=== PATIENT | male | born 1945 | race Caucasian/White ===

== ENCOUNTER 2018-02-27 10:01 | Outpatient (CLI) | payer MEDICARE, SELFPAY ==
[2018-02-28 11:15] LABS: PSA, Screening 0.3 ng/ml (0-6.5)
== END 2018-02-27 10:21 ==
PROVIDERS: PCP Emergency Medicine; Visit Provider Emergency Medicine
DX: N42.9 Disorder of prostate, unspecified (principal); Z12.5 Encounter for screening for malignant neoplasm of prostate
CPT/HCPCS: 36415; 84153

== ENCOUNTER 2019-03-03 11:48 | Outpatient (CLI) | payer MEDICARE, OTHER, SELFPAY ==
[2019-03-03 12:59] LABS: HCT 47.3 % (40.0-50.0); HGB 16.3 g/dL (13.5-17.5); Mean Corp. HGB Concentration 34.5 g/dL (32.0-36.0); Mean Corpuscular Hemoglobin 31.6 pg (27.0-33.0); Mean Corpuscular Volume 91.7 fL (80-95); Mean Platelet Volume 12.5 fL (8.0-11.0); Platelet Count 167 x1000/uL (130-400); RBC 5.16 m/cumm (4.50-6.00); RBC Distribution Width 13.9 % (11.8-14.1); White Blood Cell Count 7.56 k/cumm (4.4-10.8)
[2019-03-03 14:38] LABS: ALT 33 U/L (16-63); AST 25 U/L (15-37); Albumin 3.9 g/dL (3.4-5.0); Alkaline Phosphatase 57 U/L (46-116); Anion Gap 11.1 mmol/L (3-11); BUN 17 mg/dL (7-18); Bilirubin, Total 0.4 mg/dL (0.2-1.0); CO2 23.9 mmol/L (21.0-32.0); CREATININE 1.09 mg/dL (0.70-1.30); Calcium 8.6 mg/dL (8.5-10.1); Chloride 106 mmol/L (98-107); Glucose 95 mg/dL (74-106); Potassium 4.3 mmol/L (3.5-5.1); Sodium 141 mmol/L (136-145); Total Protein 6.8 g/dL (6.4-8.2)
== END 2019-03-03 12:08 ==
PROVIDERS: PCP Emergency Medicine; Visit Provider Family Medicine
DX: I48.91 Unspecified atrial fibrillation (principal)
CPT/HCPCS: 36415; 80053; 85027

== ENCOUNTER 2020-03-05 20:00 | Outpatient (REF) | payer MEDICARE, OTHER, SELFPAY ==
[2020-03-05 21:01] LABS: HCT 46.9 % (40.0-50.0); HGB 16.2 g/dL (13.5-17.5); MCH 31.8 pg (27.0-33.0); MCHC 34.5 % (32.0-36.0); Platelet Count 190 10^3/uL (130-400); RDW 13.4 % (11.8-14.1); RDW-SD 46.2 fL; WBC 8.74 10^3/uL (4.4-10.8)
[2020-03-05 21:40] LABS: ESR 3 mm/hr (1-20)
[2020-03-05 22:12] LABS: ALT 32 U/L (16-63); AST 23 U/L (15-37); Albumin 4.1 g/dL (3.4-5.0); Alkaline Phosphatase 64 U/L (46-116); Anion Gap 7.2 mmol/L (3-11); BUN 16 mg/dL (7-18); Bilirubin, Total 0.5 mg/dL (0.2-1.0); C-Reactive Protein 0.11 mg/dL (0.0-0.3); CO2 25.8 mmol/L (21.0-32.0); CREATININE 1.08 mg/dL (0.70-1.30); Calcium 8.7 mg/dL (8.5-10.1); Chloride 106 mmol/L (98-107); Glucose 93 mg/dL (74-106); Potassium 4.7 mmol/L (3.5-5.1); Sodium 139 mmol/L (136-145); Total Protein 7.1 g/dL (6.4-8.2)
== END 2020-03-05 20:20 ==
LOC: LBN 20:00
PROVIDERS: PCP Emergency Medicine; Visit Provider Emergency Medicine
DX: L29.8 Other pruritus (principal); N42.89 Other specified disorders of prostate
CPT/HCPCS: 80053; 85027; 85652; 86140

== ENCOUNTER 2020-03-08 10:01 | Outpatient (CLI) | payer MEDICARE, OTHER, SELFPAY ==
--- NOTE | 2020-03-08 13:30 | DI.RAD_ITS ---
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 systemic disease. TECHNIQUE: 2D digital imaging was performed. COMPARISON: No exams were available for comparison FINDINGS: Heart size is normal. The mediastinum is not widened. Lungs are clear. No infiltrates nor pleural effusions. IMPRESSION: No acute pulmonary findings. DATA REPOSITORY: RADIATION DOSE DELIVERED:
== END 2020-03-08 10:21 ==
PROVIDERS: PCP Emergency Medicine; Visit Provider Emergency Medicine
DX: L29.8 Other pruritus (principal)
CPT/HCPCS: 71046

== ENCOUNTER → 2020-04-14 12:40 | Outpatient (BNVA) | payer MEDICARE, OTHER, SELFPAY | PROVIDERS: PCP Emergency Medicine; Referring Provider Emergency Medicine; Visit Provider Internal Medicine Cardiovascular Disease | DX: I48.21 Permanent atrial fibrillation | CPT/HCPCS: 99203 ==

== ENCOUNTER → 2020-11-08 09:45 | Outpatient (BNVA) | payer MEDICARE, OTHER, SELFPAY | PROVIDERS: PCP Emergency Medicine; Referring Provider Emergency Medicine; Visit Provider Psychiatry & Neurology Neurology | DX: R25.3 Fasciculation (principal); H53.19 Other subjective visual disturbances | CPT/HCPCS: 99215 ==

== ENCOUNTER 2021-02-02 00:44 | Outpatient (CLI) | payer MEDICARE, OTHER, SELFPAY ==
--- NOTE | 2021-02-02 09:59 | DI.US_ITS ---
APPROVED REPORT EXAM: Comprehensive 2D, Doppler, and color-flow Echocardiogram Patient Location: Out-Patient Certified Orthotist Practice Manager: Natalya Lima RDCS (AE) Indications: Atrial Fibrillation Other Information Study Quality: Good Conclusion Normal left ventricular wall thickness and chamber size. Estimated ejection fraction is 55 to 60%. Wall motion is normal Normal right ventricular size and systolic function Both atria are moderately dilated The aortic valve is trileaflet and mildly sclerotic without stenosis or regurgitation Normal mitral valve with trace regurgitation Normal tricuspid valve with trace regurgitation. Estimated right ventricular systolic pressure is no rmal at 20 mmHg Wall motion Left Ventricle The left ventricle is normal size. The left ventricular systolic function is normal. The left ventric ular ejection fraction is within the normal range. There is normal left ventricular wall thickness. T here is normal LV segmental wall motion. There is no ventricular septal defect visualized. LVEF is 55 -60%. Right Ventricle Right ventricle is borderline dilated. The right ventricular systolic function is normal. The RVSP is 20.5mmHg. Atria Left atrium is moderately dilated. Right atrium is moderately dilated. The interatrial septum is inta ct with no evidence for an atrial septal defect. Aortic Valve The Aortic valve is sclerotic. Aortic valve is trileaflet. There is no aortic valvular stenosis. No a ortic regurgitation is present. Mitral Valve The mitral valve is normal in structure. No evidence of mitral valve stenosis. Trace mitral regurgita tion. Tricuspid Valve The tricuspid valve is normal in structure. There is no tricuspid valve stenosis. Trace tricuspid reg urgitation. Pulmonic Valve The pulmonary valve is normal in structure. There is no pulmonic valvular stenosis. Trace pulmonic re gurgitation. Great Vessels The aortic root is normal in size. The ascending aorta is normal in size. Aortic arch is normal in ca liber. IVC is normal in size and collapses >50% with inspiration. Pericardium There is no pericardial effusion. 2D Dimensions IVSD d PLAX 1.03 cm M: 0.6-1.2 LV Vol A2C d MOD 100.9 mL LVPW d PLAX 1.04 cm M: 0.6 - 1.2 LV Vol A4C d MOD 112.3 mL LVID d PLAX 5.36 cm M: 4.2 - 5.8 LA vol/ BSA A2C s A-L 40.9 mL/m2 LVDs 3.60 cm M: 2.5 - 4.0 LA vol/ BSA A4C s A-L 39.0 mL/m2 RA Area A4C 20.42 cm2 LA Vol/ BSA Biplane s A-L 40.7 mL/m2 RA Vol/ BSA A4C s A-L 29.9 mL/m2 LA Area A4C s MOD 25.29 cm2 Ao Asc Diam d 3.45 cm M: 2.6 - 3.4 LA Area A2C s MOD 25.37 cm2 LV EF Teichholz 59.6 % LV EF A4C MOD 55.0 % LVEF (Story's) 56.05 % M: 52 - 72 LV EF A2C MOD 57.1 % LV Volume 79.75 mL M: 62 - 150 LV EF Biplane MOD 56.0 % LV Volume Index 38.34 mL/m2 M: 34 - 74 SV 60.43 mL LV Vol Biplane MOD 107.8 mL SV Index 28.96 mL/m2 FS 31.95 % M-Mode TAPSE 1.90 cm (M/F) >1.7 LV Diastology MV E' medial 0.117 (>0.07 m/s) E/A Ratio 2.5 LV E/e MED 7.55 (<14) MV E Vmax 0.89 (0.4-1.3 m/s) MV E' lateral 0.122 (>0.1 m/s) MV A Vmax 0.35 (0.4-1.3 m/s) LV E/e LAT 7.25 (<14) MV E/A Ratio 2.34 MV E/E' medial 7.56 MV E/E' lateral 7.25 Aortic Valve LVOT Vmax 0.81 m/s LVOT Mean Az. 0.51 m/s LVOT Peak Grad 2.6 mmHg LVOT Mean Grad 1.3 mmHg LVOT VTI 0.149 m AoV Vmax 1.10 m/s Velocity Ratio 0.73 AoV Mean Az. 0.80 m/s AoV Peak Grad 4.9 mmHg AoV Mean Grad 2.8 mmHg AoV VTI 0.199 m Mitral Valve MV DT 180 (160-240 msec) MV PHT 52 msec MV Area PHT 4.21 cm2 MV VTI 0.787 m MV VTI Annulus 1.326 m Pulmonary Valve PV Vmax 1.16 (0.5-1.5 m/s) RVOT Peak Gr. 2.45 mmHg PV Peak Grad 5.4 mmHg RVOT Mean Gr. 1.15 mmHg PV Mean Grad 3.5 mmHg RVOT VTI 0.140 m PV VTI 0.179 m RVOT Vmax 0.78 m/s Tricuspid Valve TR Peak Grad 17.5 mmHg TR Vmax 2.09 m/s RA Pressure 3.00 mmHg RVSP (TR) 20.5 mmHg
== END 2021-02-02 01:04 ==
PROVIDERS: PCP Emergency Medicine; Visit Provider Internal Medicine Cardiovascular Disease
DX: I48.91 Unspecified atrial fibrillation (principal); I35.8 Other nonrheumatic aortic valve disorders
CPT/HCPCS: 93306

== ENCOUNTER → 2021-04-01 09:15 | Outpatient (BNVA) | payer MEDICARE, SELFPAY | PROVIDERS: PCP Emergency Medicine; Referring Provider Emergency Medicine; Visit Provider Internal Medicine Cardiovascular Disease | DX: I48.21 Permanent atrial fibrillation (principal) | CPT/HCPCS: 99214; 99213 ==

== ENCOUNTER 2021-07-15 00:15 | Outpatient (CLI) | payer MEDICARE, SELFPAY ==
--- NOTE | 2021-07-15 07:26 | DI.RAD_ITS ---
Exam(s) XR ANKLE RT COMPLETE EXAM: XR ANKLE RT COMPLETE CLINICAL HISTORY: ankle pain,m25.579. TECHNIQUE: 2D digital imaging was performed. Three views. COMPARISON: No exams were available for comparison FINDINGS: BONES: No acute fracture is present. No bony destructive lesion is seen. Prominent spurring at the A chilles insertion on the calcaneus. Mild spurring from the medial malleolus. JOINTS: The ankle mortise is normally aligned. Joint spaces well maintained. SOFT TISSUE: Normal. IMPRESSION: Large enthesophyte at the Achilles insertion on the calcaneus. DATA REPOSITORY: RADIATION DOSE DELIVERED:
== END 2021-07-15 00:35 ==
PROVIDERS: PCP Nurse Practitioner Family; Visit Provider Emergency Medicine
DX: M25.571 Pain in right ankle and joints of right foot; M76.61 Achilles tendinitis, right leg
CPT/HCPCS: 73610

== ENCOUNTER → 2021-08-01 09:23 | Outpatient (BNVA) | payer MEDICARE, SELFPAY | PROVIDERS: PCP Nurse Practitioner Family; Referring Provider Nurse Practitioner Family | DX: M25.571 Pain in right ankle and joints of right foot (principal) | CPT/HCPCS: 20605; 99214; J1030 ==

== ENCOUNTER → 2021-10-14 23:30 | Outpatient (CLI) | payer MEDICARE, SELFPAY ==
--- NOTE | 2021-10-14 15:15 | DI.RAD_ITS ---
Exam(s) XR ANKLE RT COMPLETE EXAM: XR ANKLE RT COMPLETE CLINICAL HISTORY: evaluate fx, rt ankle pain, M25.571. TECHNIQUE: 2D digital imaging was performed. Three views. COMPARISON: CR XR ANKLE RT COMPLETE from 07/15/2021 FINDINGS: BONES: No acute fracture is present. No bony destructive lesion is seen. A prominent spurs again noted at the Achilles insertion on the calcaneus. JOINTS: The ankle mortise is normally aligned. There are mild degenerative changes of the medial tib ial talar joint. SOFT TISSUE: There is swelling around the malleoli. IMPRESSION: Prominent heel spur. No evidence of fracture. DATA REPOSITORY: RADIATION DOSE DELIVERED:
== END ==
PROVIDERS: PCP Nurse Practitioner Family; Visit Provider Nurse Practitioner Family
DX: M25.571 Pain in right ankle and joints of right foot (principal); M77.31 Calcaneal spur, right foot
CPT/HCPCS: 73610

== ENCOUNTER 2021-10-17 04:32 | Outpatient (CLI) | payer MEDICARE, SELFPAY ==
[2021-10-17 14:04] LABS: INR 1.2 (0.9-1.1); Prothrombin Time 12.1 sec (9.3-11.0)
== END 2021-10-17 04:33 | disposition home or self-care (01) ==
LOC: LBO 04:32
PROVIDERS: PCP Nurse Practitioner Family; Visit Provider Nurse Practitioner
DX: I51.3 Intracardiac thrombosis, not elsewhere classified (principal); Z79.01 Long term (current) use of anticoagulants
CPT/HCPCS: 36415; 85610

== ENCOUNTER 2021-10-20 03:01 | Outpatient (CLI) | payer MEDICARE, SELFPAY ==
[2021-10-20 09:36] LABS: INR 2.1 (0.9-1.1); Prothrombin Time 20.6 sec (9.3-11.0)
== END 2021-10-20 03:02 | disposition home or self-care (01) ==
PROVIDERS: PCP Nurse Practitioner Family; Visit Provider Nurse Practitioner
DX: I48.21 Permanent atrial fibrillation (principal); I51.3 Intracardiac thrombosis, not elsewhere classified; Z79.01 Long term (current) use of anticoagulants
CPT/HCPCS: 36415; 85610

== ENCOUNTER 2021-11-04 09:17 | Outpatient (CLI) | payer MEDICARE, SELFPAY ==
[2021-11-04 09:34] LABS: Prothrombin Time 37.3 sec (9.3-11.0)
== END 2021-11-04 09:18 | disposition home or self-care (01) ==
LOC: LBO 09:18
PROVIDERS: PCP Nurse Practitioner Family; Visit Provider Nurse Practitioner
DX: I48.21 Permanent atrial fibrillation (principal); I51.3 Intracardiac thrombosis, not elsewhere classified
CPT/HCPCS: 36415; 85610

== ENCOUNTER → 2021-11-10 07:59 | Outpatient (BNVA) | payer MEDICARE, SELFPAY | PROVIDERS: PCP Nurse Practitioner Family; Referring Provider Nurse Practitioner Family; Visit Provider Student in an Organized Health Care Education/Training Program | DX: M19.071 Primary osteoarthritis, right ankle and foot (principal) | CPT/HCPCS: 99214 ==

== ENCOUNTER 2021-11-11 01:50 | Outpatient (CLI) | payer MEDICARE, SELFPAY ==
--- OUTSIDE RECORDS SUMMARY | 2021-11-11 01:52 | XMS_ITS | Encounter Summary ---
:1945 Author Organization [facility] [place] [address] Care Team Providers Name Role Phone SoitoJb Primary Care Provider Encounter Details Date Type Department Care Team Description 04/05/2021 Notes Only Card[place] [facility] [place] [phone] Social History Tobacco Use Types Packs/Day Years Used Date Never Assessed Sex Assigned at Date Recorded Not on file documented as of this encounter Progress Notes Drew Pearce RN - 04/05/2021 12:17 PM EST Mr. Polanco is referred by Susan Desir MD for consideration of left atrial appendage closure options; please refer to notes in media section for detailed history and assessment. In brief, the patient is very active and does a lot of activities that involve risk for bleeding, bruising, and injuryso would like to pursue non pharmacological options for stroke prevention. His history includes the following: Permanent atrial fibrillation; Fasciculations; Neuritis and Chronic Pruritis. [id number] VASc: 1 (Age) HAS-BLED: 1 (Age) Anticoagulation/antiplatelet: None currently Plan: Schedule clinic with diagnostics. documented in this encounter Plan of Treatment Upcoming Encounters Date Type Specialty Care Team Description 11/11/2021 Anti-Coag Telephone Primary Care Visit 12/20/2021 Hospital Encounter Surgery Amna Anthony MD [facility] [address] 12/20/2021 Appointment Cardiology Neha Pat APRN [facility] [place] [address] 12/20/2021 Surgery Surgery Amna Anthony MD ECHOCARDIOGRAM ([facility] [place] [address] 12/20/2021 Office Visit Cardiology Lance Damon MD [facility] [place] [address] Scheduled Procedures Name Priority Associated Diagnoses Date/Time TRANSESOPHAGEAL ECHOCARDIOGRAM Thrombus 0 12/20/2021 12:30 PM EDT ([facility] 2.) documented as of this encounter Visit Diagnoses Not on filedocumented in this encounter Care Teams Inclusion Internship Relationship Specialty Start Date End Date Jb Mcneill DO PCP - General Family Medicine 05/13/19 10/04/[address] [place] [address] documented as of this encounter
--- OUTSIDE RECORDS SUMMARY | 2021-11-11 01:52 | XMS_ITS | Encounter Summary ---
:1945 Author Organization [facility] [place] [address] Care Team Providers Name Role Phone None Primary Care Provider Unavailable Reason for Referral Diagnostic Test (Routine) - Closed Specialty Diagnoses / Procedures Referred By Contact Refer red To Contact Cardiology Diagnoses Atrial fibrillation, unspecified type Alexei Damon MD [facility] Non-Inv Card Lab Procedures Transesophageal Echocardiogram (FREDY) [facility] [place] [address] [address] [place] [phone] Phone: Fax: Referral ID Status Reason Start Date Expiration Date Visits V isits Requested Authorized [id number] Closed Specialty 09/14/2021 09/14/2022 1 1 Service Requested Reason for Visit Auth/Cert Specialty Diagnoses / Procedures Referred By Contact Refer red To Contact Diagnoses Chronic atrial fibrillation, unspecified Thrombus [I82.90] Chronic a-fib [I48.20] Watchman w/u ? thrombus Ronak Benson MD [facility] Procedures PRG FREDY REAL TIME IMG 2D W PRB IMG ACQUIS I&R TRANSESOPHAGEAL ECHOCARDIOGRAM (WRVU 2.55) [facility] [address] Referral ID Status Reason Start Date Expiration Date Visits Requ ested Visits Authorized [id number] 1 1 Encounter Details Date Type Department Care Team Description 10/12/2021 Hospital Encounter Same Day Program at Esa Benson rtic valve stenosis, etiology of cardiac valve disease unspecified; Susan Simons MD Atrial fibrillation, unspecified type [facility] [address] CARDIOLOGY DEPT [place], [place] [id number] [phone] Social History Tobacco Use Types Packs/Day Years Used Date Never Smoker Smokeless Tobacco: Current User Chew Alcohol Use Standard Drinks/Week Comments Yes 0 (1 standard drink = 0.6 oz pure alcoho l) A few times per week Alcohol Habits Answer Date Recorded How often do you have a drink containing Not asked alcohol? How many drinks containing alcohol do you have Not asked on a typical day when you are drinking? How often do you have six or more drinks on one Not asked occasion? Comment: A few times per week 05/17/2021 Sex Assigned at Date Recorded Not on file documented as of this encounter Last Filed Vital Signs Vital Sign Reading Time Taken Comments Blood Pressure 126/96 10/12/2021 12:15 PM EDT Pulse 73 10/12/2021 12:15 PM EDT Temperature 36.6 ??C (97.9 ??F) 10/12/2021 12:15 PM EDT Respiratory Rate 16 10/12/2021 12:15 PM EDT Oxygen Saturation 96% 10/12/2021 12:15 PM EDT Inhaled Oxygen Concentration - - Weight 93 kg (205 lb) 10/12/2021 10:01 AM EDT Height 172.7 cm (5' 8) 10/12/2021 10:01 AM EDT Body Mass Index 31.17 10/12/2021 10:01 AM EDT documented in this encounter Discharge Instructions Discharge InstructionsHanh Pena RN - 10/12/2021 11:21 AM EDT SAME DAY PROGRAM POST-OPERATIVE INSTRUCTIONS POST TRANSESOPHAGEL ECHOCARDIOGRAPHY A sore throat is normal after the procedure. It usually lasts several hours. Cold liquids and soothing lozenges will help ease the discomfort. You may resume your normal diet in two hours. No driving for twenty-four hours. No heavy lifting, no climbing or activities that require balance for twenty-four hours. Please call you doctor if you develop: Difficulty swallowing or breathing Severe chest or abdominal pain Vomiting of blood If you are having problems or have additional concerns or questions please call: Cardiology Clinic 8am - 5pm Same Day Program 6am- 6:30pm Emergency Room after 6:30pm documented in this encounter Medications at Time of Discharge Medication Sig Dispensed Refills Start Date End Date metoprolol succinate XL Daily. 0 (Toprol-XL) 50 mg Tablet Sustained Release 24 hr metoprolol succinate XL Take 25 mg by mouth 0 (Toprol-XL) 25 mg Tablet daily. Sustained Release 24 hr apixaban (Eliquis) 5 mg Take 1 tablet by 60 tablet 4 202110/13/2021 Tablet mouth 2 times daily. documented as of this encounter Progress Notes Hanh Pena RN - 10/12/2021 12:31 PM EDT Patient alert and oriented, vital signs stable. Reviewed discharge instructions; patient and spouse,verbalized understanding. Copy of instruction sheet with contact numbers for questions/concerns Provided. Pain assessment documented. Patient escorted out of department via wheelchair. Hanh Pena RN - 10/12/2021 11:30 AM EDT Pt a&ox3, denies complaints. Gag reflex present. Tolerating po fluids with no issues. documented in this encounter H&P Notes Hussain Stoll MD - 10/12/2021 10:30 AM EDT Images from the original note were not included. Pre-Transesophageal Echo Assessment Please see Neha Pat's note dated 05/24/21 for full details regarding reason for referral for FREDY. Briefly, this is a 76 y.o. YO male with history notable for atrial fibrillation now on eliquis, recent ARJUN thrombus seen on CT 05/24/21, tobacco abuse, chronic pruritis referred for FREDY to follow up on ARJUN thrombus post-anticoagulation and sizing of ARJUN. The patient denies a history of difficulty swallowing or esophageal pathology. The patient denies any loose teeth. Exam reveals clear lungs, flat JVP at 90 degrees, regular rhythm without gallop or murmur, 2+ radialpulses bilaterally, and no LE edema. Mallampati: III Allergies reviewed. Previous echocardiogram dated 02/02/21 reviewed. [facility] echo report. The patient is appropriate for FREDY. [ ] Cardioversion [ ] Age <25 years [ ] Oxygen requirement >2L [ ] Recent CVA [ ] Morbid obesity [ ] Obstructive sleep apnea [ ] Hemodynamic instability [ ] Chronic narcotics/alcoholism [ ] ASA IV or greater FREDY will be done with anesthesia in [place]. Please see forthcoming anesthesia note. The patient's questions regarding the procedure were answered. Written, informed consent was obtained after a thorough discussion of the risks and benefits of FREDY as detailed in the printed consent form. Hussain Stoll Technical Services Representative, [id number] documented in this encounter Miscellaneous Notes Op Note - Ronak Benson MD - 10/12/2021 10:46 AM EDT [facility] Operative Note Patient Name: Sera Soliz : [id number] MR#: [id number] Case Date: 10/12/2021 Surgeon: Surgeon(s) and Role: * Ronak Benson MD - Primary * Hussain Stoll MD - Fellow Preoperative diagnosis: Thrombus [I82.90] Chronic a-fib [I48.20] Watchman w/u ? thrombus Postoperative diagnosis: Watchman w/u ? thrombus Procedure(s) (LRB): TRANSESOPHAGEAL ECHOCARDIOGRAM (WRVU 2.55) (N/A) Anesthesia: MAC Estimated Blood Loss: * No values recorded between 10/12/2021 10:46 AM and 10/12/2021 11:01 AM * Specimens removed during surgery: None Drains: * No LDAs found * Disposition: awakened from anesthesia, extubated and taken to the recovery room in a stable condition, having suffered no apparent untoward event. Condition: doing well without problems (Please see the Surgical Encounter Summary for any Implant and Specimen details pertinent to this patient.) HPI/Surgical Indications: 76 year old man referred for FREDY for evaluation of ARJUN thrombus. Procedure Description: FREDY probe passed autraumatically by Dr. Stoll under my direct supervision. There is a thrombus in the ARJUN. FREDY otherwise normal. Please see report for full details. Surgical Infection Prevention Bundle Used? N/A Attestation: Case Date: 10/12/2021 I was present and I participated during the entire procedure (does not need to include opening and closing). Ronak Benson MD 10/12/2021 documented in this encounter Plan of Treatment Upcoming Encounters Date Type Specialty Care Team Description 11/11/2021 Anti-Coag Telephone Primary Care Visit 12/20/2021 Hospital Encounter Surgery Amna Atnhony MD [facility] [place] [address] 12/20/2021 Appointment Cardiology Neha Pat APRN [facility] [place] [address] 12/20/2021 Surgery Surgery Amna Anthony MD ECHOCARDIOGRAM ([facility] 2.55) [facility] [place] [address] 12/20/2021 Office Visit Cardiology Alexei Damon MD [facility] [place] [address] Scheduled Procedures Name Priority Associated Diagnoses Date/Time TRANSESOPHAGEAL ECHOCARDIOGRAM Thrombus 0 12/20/2021 12:30 PM EDT ([facility] 2.55) documented as of this encounter Procedures Procedure Name Priority Date/Time Associated Comments Diagnosis FREDY W LMTD SPECTRAL Routine 10/12/2021 1:16 Atrial Resul ts for this DOPPLER COLOR DOPPLER PM EDT fibrillation, proce dure are in unspecified type the results section. TRANSESOPHAGEAL 10/12/2021 10:36 Thrombus ECHOCARDIOGRAM (WRVU AM EDT Chronic a-fib 2.55) HEMOGRAM Routine 10/12/2021 9:29 Aortic valve Results for this AM EDT stenosis, etiology procedure are in of cardiac valve the results disease unspecified section. DIFFERENTIAL, AUTOMATED Routine 10/12/2021 9:29 Aortic valve R esults for this AM EDT stenosis, etiology procedure are in of cardiac valve the results disease unspecified section. HC CBC,PLT & AUTO DIFF Routine 10/12/2021 9:29 Aortic valve AM EDT stenosis, etiology of cardiac valve disease unspecified COMPREHENSIVE METABOLIC Routine 10/12/2021 9:29 Aortic valve R esults for this PANEL (NON-FASTING) AM EDT stenosis, etiology pr ocedure are in of cardiac valve the results disease unspecified section. documented in this encounter Results FREDY W LMTD SPECTRAL DOPPLER COLOR DOPPLER (10/12/2021 1:16 PM EDT) P athologist Signature EF 65 HEARTLAB SYSTEM Specimen (Source) Anatomical Collection Method Collection Time Re ceived Time Location / / Volume Laterality 10/12/2021 10:38 AM EDT Narrative HEARTLAB SYSTEM - 10/12/2021 1:25 PM EDT ? Transe sophageal Echocardiogram Report Name: SERA SOLIZ ? Study Date: 10/12/2021 10:38 AMBP: 154/104 mmHg ? Patient Location: OR^ORMN^A HR: 94 : 1945 ? Height: 68 in ? Account: [id number] Age: 76 yrs ? Weight: 205 lb Gender: Male ?BSA: 2.1 m2 Ordering Physician: ALEXEI DAMON Referring Physician: ALEXEI DAMON Performed By: Hussain Stoll MD History: Atrial fibrillation Interpreting Fellow: Hussain Stoll. Exam Location: [facility]. Interpretation Summary 1. Directed FREDY to assess for thrombus i n the left atrium or left atrial appendage. 2. There is an independently mobile mass present in the left atrial appendage measuring roughly 0.92 cm x 0.66 cm that is consistent with a likely thrombus. There is no evidence of thrombus in the left atrium. 3. The left ventricle is normal in size and function. The left ventricular ejection fraction is estimated to be 65% . There are no regional wall motion abnormalities. 4. The right ventricle is normal in size and function. The pulmonary artery systolic pressure could not be estimated . 5. There are no hemodynamically signific ant valvular abnormalities. 6. Compared to the prior echocardiograph ic report from [facility] on 04/01/21, a left atrial appendage thrombus is able to be visualized on this study. Procedure A complete FREDY study was performed under deep sedation with anesthesia provided by the anesthesiology service. After suitab le sedation, the probe was passed without difficulty. Standard views were obtained in the transgastric, mid esophageal, and basal planes using a multiplane transeso phageal echo probe. Additional evaluation with color flow Doppler and limited spec tral Doppler was performed. Probe passed by: Hussain Stoll. 3D image acquisitio n, rendering with interpretation and reporting, not requiring post-processing on an independent workstation. There were no complications during the procedure. T he study images were of technically good quality. Informed consent from the patie nt in writing. The risks and benefits of the procedure were explained in detail t o the patient, including but not limited to the risk of aspiration, dysphagia, an d esophageal perforation. Patient agreed to proceed. Left Ventricle Left ventricle is of normal size. Wall t hickness is normal. Left ventricular size and systolic function is normal. Left ve ntricular ejection fraction is estimated visually at 65%. There are no segmental wall motion abnormalities. Right Ventricle The right ventricle is of normal size. R ight ventricular systolic function is normal. Left Atrium A mass is present in the left atrial jared endage compatible with a thrombus. No abnormality of the interatrial septum is identified. There is no evidence for a patent foramen ovale. Pulsed wave Dopple r of the left atrial appendage demonstrates normal emptying velocity. Right Atrium No evidence of a mass or thrombus. Aortic Valve The aortic valve is structurally and fun ctionally normal. The aortic valve is tricuspid. There is no aortic stenosis. There is no aortic regurgitation. Mitral Valve The mitral valve is structurally and fun ctionally normal. There is no mitral stenosis. There is mild mitral regurgita tion. Tricuspid Valve The tricuspid valve is structurally and functionally normal. There is mild tricuspid regurgitation. Pulmonic Valve The pulmonic valve appears to be structu rally and functionally normal. There is trace pulmonic valve regurgitation. Great Arteries The aortic root is of normal size. No ab normalities are identified. Ascending Plaque grade 2: (extensive intimal thick ening). Aortic Arch Plaque grade 2: (extensive intimal thickening). Descendi ng Thoracic Aorta Plaque grade 2: (extensive intimal thickening). Pericardium/Pleural The pericardium appears normal. There is no pericardial effusion. ? 2D Measurements ?A o root diam: 3.1 cm ?A o root diam index: 1.5 ? Left atrial appendage thrombus ?Left atrial appendage thrombus I ?WMSI = 1.00 ? % Normal = 1 00 ?Segments ??Size X - Cannot ?2 - ?4 - ?1-2 ? small Interpret ?1 - Normal ?? Hypokinetic 3 - Akinetic Dyskinetic ?? 3-5 ? moderate 5 - ? 6-14 ?large Aneurysmal ?15-16 ?? diffuse Procedure Note Ronak Benson MD - 10/12/2021Format ting of this note might be different from the original. Transesophageal Echocardiogram Report Name: HEYDISERA Study Date: 10/13/19 10:38 AMBP: 154/104 mmHg Patient Location: OR^OR N^A HR: 94 : 1945 Height: 68 in Account: [id number] Age: 76 yrs Weight: 205 lb Gender: Male BSA: 2.1 m2 Ordering Physician: ALEXEI DAMON Referring Physician: ALEXEI DAMON Performed By: Hussain Stoll MD History: Atrial fibrillation Interpreting Fellow: Hussain Stoll. Exam Location: [facility]. Interpretation Summary 1. Directed FREDY to assess for thrombus i n the left atrium or left atrial appendage. 2. There is an independently mobile mass present in the left atrial appendage measuring roughly 0.92 cm x 0.66 cm that is consistent with a likely thrombus. There is no evidence of thrombus in the left atrium. 3. The left ventricle is normal in size and function. The left ventricular ejection fraction is estimated to be 65% . There are no regional wall motion abnormalities. 4. The right ventricle is normal in size and function. The pulmonary artery systolic pressure could not be estimated . 5. There are no hemodynamically signific ant valvular abnormalities. 6. Compared to the prior echocardiograph ic report from [facility] on 04/01/21, a left atrial appendage thrombus is able to be visualized on this study. Procedure A complete FREDY study was performed under deep sedation with anesthesia provided by the anesthesiology service. After suitab le sedation, the probe was passed without difficulty. Standard views were obtained in the transgastric, mid esophageal, and basal planes using a multiplane transeso phageal echo probe. Additional evaluation with color flow Doppler and limited spec tral Doppler was performed. Probe passed by: Hussain Stoll. 3D image acquisitio n, rendering with interpretation and reporting, not requiring post-processing on an independent workstation. There were no complications during the procedure. T he study images were of technically good quality. Informed consent from the patie nt in writing. The risks and benefits of the procedure were explained in detail t o the patient, including but not limited to the risk of aspiration, dysphagia, an d esophageal perforation. Patient agreed to proceed. Left Ventricle Left ventricle is of normal size. Wall t hickness is normal. Left ventricular size and systolic function is normal. Left ve ntricular ejection fraction is estimated visually at 65%. There are no segmental wall motion abnormalities. Right Ventricle The right ventricle is of normal size. R ight ventricular systolic function is normal. Left Atrium A mass is present in the left atrial jared endage compatible with a thrombus. No abnormality of the interatrial septum is identified. There is no evidence for a patent foramen ovale. Pulsed wave Dopple r of the left atrial appendage demonstrates normal emptying velocity. Right Atrium No evidence of a mass or thrombus. Aortic Valve The aortic valve is structurally and fun ctionally normal. The aortic valve is tricuspid. There is no aortic stenosis. There is no aortic regurgitation. Mitral Valve The mitral valve is structurally and fun ctionally normal. There is no mitral stenosis. There is mild mitral regurgita tion. Tricuspid Valve The tricuspid valve is structurally and functionally normal. There is mild tricuspid regurgitation. Pulmonic Valve The pulmonic valve appears to be structu rally and functionally normal. There is trace pulmonic valve regurgitation. Great Arteries The aortic root is of normal size. No ab normalities are identified. Ascending Plaque grade 2: (extensive intimal thick ening). Aortic Arch Plaque grade 2: (extensive intimal thickening). Descendi ng Thoracic Aorta Plaque grade 2: (extensive intimal thickening). Pericardium/Pleural The pericardium appears normal. There is no pericardial effusion. 2D Measurements Ao root diam: 3.1 cm Ao root diam index: 1.5 Left atrial appendage thrombus Left atr ial appendage thrombus I WMSI = 1.00 % Normal = 100 Segments Size X - Cannot 2 - 4 - 1-2 small Interpret 1 - Normal Hypokinetic 3 - Shon netic Dyskinetic 3-5 moderate 5 - 6-14 large Aneurysmal 15-16 diffuse Alexei Damon MD ECHO ORDERABLES Performing Organization Address City/State/ZIP Code Phon e Number HEARTLAB SYSTEM (ABNORMAL) Differential, Automated (10/12/2021 9:29 AM EDT) [facility] Method Time Signature Neutrophils % 72.5 % [facility] Neutr Abs (ANC) 7.19 (H) 1.70 - [facility] 6.10 [facility] x10(3[facility] LABOR[facility]ORY Lymphocytes % 14.9 % [facility] Lymphocytes Abs 1.5 0.9 - 3.2 [facility] x10(3)/[facility] LABORATORY Monocytes % 9.4 % [facility] Monocyte Abs 0.9 0.3 - 0.9 [facility] x10(3)/[facility] LABORATORY Eosinophils % 2.1 % [facility] Eosinophils Abs 0.2 0.0 - 0.4 [facility] x10(3)/[facility] LABORATORY Basophils % 0.6 % [facility] Basophils Abs 0.1 0.0 - 0.1 [facility] x10(3)/[facility] LABORATORY Immature Gran % 0.50 % [facility] Comment: Immature granulocytes(IG's)percentage an d absolute count will include metamyelocytes, myelocytes, and promyelo cytes. Blood smears from CBCs yielding IG's will be scanned manually for concor dance. If this scan disagrees with the automated IG or if promyelocytes are not ed, a manual differential will be performed. Rubia Gran Abs 0.05 (H) 0.00 - 0.04 x10(3)/[facility] LABORATORY Specimen Anatomical Collection Method Collection Time Receive d Time (Source) Location / / Volume Laterality Blood 10/12/2021 9:29 AM 9:49 EDT AM EDT Resulting Agency Comment Spec In Lab Neha Yuri Pat APRN HEMATOLOGY ORDERABLES Performing Organization Address City/State/[place] [address] (ABNORMAL) Hemogram (10/12/2021 9:29 AM EDT) Analysis Performed At Patho logist Time Signature WBC 9.9 (H) 4.0 - 9.5 [facility] x10(3)/[facility] LABORATORY RBC 5.26 4.58 - [facility] 5.54 [facility] x10(6)/[facility] LABORATORY Hemoglobin 16.3 13.7 - [facility] 16.5 g/dL [facility] Hematocrit 47.7 40.5 - [facility] 48.5 % [facility] MCV 90.7 82.9 - [facility] 93.1 fL [facility] MCH 31.0 27.5 - SUSAN MONTIEL 32.1 pg [facility] MCHC 34.2 32.0 - [facility] 35.[facility] g/dL [facility] Platelets 180 145 - 357 [facility] x10(3)/[facility] LABORATORY RDWSD 45.1 (H) 36.0 - [facility] 45.0 [facility] LABORATORY RDWCV 13.3 11.4 - [facility] 13.8 % [facility]ORY MPV 12.1 7.6 - 12.9 [facility] LABORATORY nRBC % Auto 0.0 % [facility] nRBC Abs Auto 0.000 0.000 - [facility] 0.000 [facility] x10(3[facility] LABORATORY Specimen Anatomical Collection Method Collection Time Receive d Time (Source) Location / / Volume Laterality Blood 10/12/2021 9:29 AM 9:49 EDT AM EDT Resulting Agency Comment Spec In Lab Neha Pat APRN HEMATOLOGY ORDERABLES Performing Organization Address City/State/[place] [address] Comprehensive metabolic panel (non-fasting) (10/12/2021 9:29 AM EDT) P athologist Signature Glucose Lvl 100 65 - 199 [facility] mg/dL [facility] Comment: Diabetes: >=200 mg/dL plus symp toms BUN 14 10 - 20 mg/dL [facility] Creatinine 1.03 0.80 - 1.50 mg/dL [facility] Sodium 137 135 - 145 mmol/L [facility] Potassium 4.4 3.5 - 5.0 mmol/L [facility] Comment: Please note: ??Patients with WBC >100,00 0 may have falsely elevated Potassium levels. ??For accurate Potassium quantif ication in these patients send serum separator tube (gold top) for subsequent determinations. ??Contact the Clinical Chemistry Laboratory if there are any qu estions. Chloride 105 98 - 107 mmol/L [facility] CO2 25 22 - 31 mmol/L [facility] Anion Gap 7 5 - 15 mmol/L [facility] Calcium 9.0 8.5 - 10.5 mg/dL [facility] Total Protein 6.8 6.1 - 8.0 g/dL [facility] Albumin 4.2 3.2 - 5.2 g/dL [facility] AST 21 0 - 39 unit/L [facility] ALT 17 0 - 55 unit/L [facility] Alk Phos 58 40 - 130 unit/L [facility] Total Bilirubin 0.7 0.2 - 1.3 mg/dL [facility] Estimated GFR 76 >=60 mL/min/1.73 m?? [facility] Comment: This patient's estimated GFR was calcula jody using the 2020 CKD-EPI equation. The estimated GFR can vary from the mary ured GFR by up to 30% in the absence of rapidly changing kidney function. Assess ment of the estimated GFR is not appropriate when creatinine concentratio ns are rapidly changing. For clinical situations in which a more precise estim ate of GFR is necessary, consider alternative methods of GFR estimation henry ch as a 24-hour urine creatinine clearance. Assignment of CKD stage 1-5 for patients with an eGFR near the transition point between stages may be based on clinical assessment of muscle mass and symptoms in addition to eGFR. Specimen Anatomical Collection Method Collection Time Receive d Time (Source) Location / / Volume Laterality Blood 10/12/2021 9:29 AM 2 9:50 EDT AM EDT Resulting Agency Comment Spec In Lab Neha Pat APRN CHEMISTRY ORDERABLES Performing Organization Address City/State/[place] [address] documented in this encounter Visit Diagnoses Diagnosis Aortic valve stenosis, etiology of cardi ac valve disease unspecified Atrial fibrillation, unspecified type Thrombus Embolism and thrombosis of unspecified s ite documented in this encounter Administered Medications Inactive Administered Medications - up to 3 most recent administrations Medication Order MAR Action Action Date Dose Rate Site iohexoL (Omnipaque) (350 mg/mL) solution 0-200 mL 0-200 mL, Intravenous, ONCE PRN, 1 dose, Starting on Sun10/12/21 at 0959, Until Sun10/12/21 at 1437, Per Protocol, Warning Vesicant/Irr itant Medication , Radiology Contrast, Routine lactated ringers infusion New Bag 10/12/2021 10:24 AM EDT 1,000 mLs 100 mL/hr 1,000 mL, at 100 mL/hr, Intravenous, CONTINUOUS, Starting on Sun10/12/21 at 1015, Until Sun10/12/21 at 1230, Day of Surgery (Day of Procedure) lidocaine (Xylocaine) 1% (10 mg/mL) injection Given 10:24 AM EDT 3 mg 3 mg 3 mg (0.3 mL), Subcutaneous, ONCE PRN, 1 dose, Starting on Sun10/12/21 at 0959, Until Sun10/12/21 at 1024, for discomfort with PIV insertion, Day of Surgery (Day of Procedure), Routine documented in this encounter Active and Recently Administered Medications Times are shown in EDT. Continuous Medication Order 10/10/2021 10/11/2021 10/12/2021 lactated ringers infusion (CANCELED) 1024 (New Bag - Provider: Alexei Beck RN) 1,000 mL, at 100 mL/hr, Intravenous, CON TINUOUS, Starting on Sun10/12/21 at 1015, Until Sun10/12/21 at 1230, Day of Surgery (Day of Procedure) PRN Medication Order 10/10/2021 10/11/2021 10/12/2021 iohexoL (Omnipaque) (350 mg/mL) solution 0-200 mL 0-200 mL, Intravenous, ONCE PRN, 1 dose, Starting on Sun10/12/21 at 0959, Until Sun10/12/21 at 1437, Per Protocol, Warning Vesicant/Irritant Medication , Radiology Contrast, Routine lidocaine (Xylocaine) 1% (10 mg/mL) injection 3 mg (COMPLETED) 1024 (Given - Provider: Alexei Beck RN) 3 mg (0.3 mL), Subcutaneous, ONCE PRN, 1 dose, Starting on Sun10/12/21 at 0959, Until Sun10/12/21 at 1024, for discomfort with PIV insertion, Day of Surgery (Day of Procedure), Routine lidocaine (Xylocaine) 5 % ointment (CANCELED) 1042 (Given - Provider: Hussain Stoll MD - Comment: To back of throat) ONCE PRN, Starting on Sun10/12/21 at 104 2, Until Sun10/12/21 at 1437, Intra- Operative (Intra-Procedure) documented in this encounter Care Teams Tape Machine Tailer Relationship Specialty Start Date End Date None PCP - General 10/05/21 None documented as of this encounter
--- OUTSIDE RECORDS SUMMARY | 2021-11-11 01:52 | XMS_ITS | Encounter Summary ---
:1945 [place] [address] Care Team Providers Name Role Phone None Primary Care Provider Unavailable Encounter Details Date Type Department Care Team Description 10/24/2021 External Results [facility] Provider, His LOOKSIMA Information Juliet brumfield MD Services None [address] [place] [address] Social History Tobacco Use Types Packs/Day Years [...] on file documented as of this encounter Plan of Treatment Upcoming Encounters Date Type Specialty Care Team Description 11/11/2021 Anti-Coag Telephone Primary Care Visit 12/20/2021 Hospital Encounter Surgery Amna Anthony MD [facility] [place] [address] 12/20/2021 Appointment Cardiology Neha Pat APRN [facility] [place] [address] 12/20/2021 Surgery Surgery Amna Anthony MD ECHOCARDIOGRAM ([facility] [address] CARDIOLOGY DEPT [place], [place] [id number] 12/20/2021 Office Visit Cardiology Lance Damon MD [facility] [place] [address] Scheduled Procedures Name Priority Associated Diagnoses Date/Time TRANSESOPHAGEAL ECHOCARDIOGRAM Thrombus 0 12/20/2021 12:30 PM EDT ([facility] 2.55) documented as of this encounter Procedures Procedure Name Priority Date/Time Associated Diagnosis Comme nts PROTHROMBIN TIME Routine 10/24/2021 11:22 AM Resu lts for this EDT procedure are i n the results section. documented in this encounter Results (ABNORMAL) Prothrombin Time (10/24/2021 11:22 AM EDT) P athologist Signature PT 21.9 (H) EXTERNAL LAB INR 2.00 (H) EXTERNAL LAB Specimen (Source) Anatomical Collection Method Collection Time Re ceived Time Location / / Volume Laterality Blood 10/24/2021 11:22 AM EDT Narrative This result has an attachment that is no t available. His [place] Provider HEMATOLOGY ORDERABLES Performing Organization Address City/State/ZIP Code Phon e Number EXTERNAL FACILITY EXTERNAL LAB documented in this encounter Visit Diagnoses Not on filedocumented in this encounter Care Teams Learning Services Coordinator Relationship Specialty Start Date End Date None PCP - General 10/05/21 None documented as of this encounter
--- OUTSIDE RECORDS SUMMARY | 2021-11-11 01:52 | XMS_ITS | Clinical Summary ---
:1945 Author Organization [facility] [place] [address] Care Team Providers Name Role Phone None Primary Care Provider Unavailable Allergies No known active allergies Medications Medication Sig Dispensed Refills Start Date End Date Status metoprolol Take 25 mg by mouth 0 Active succinate XL daily. (Toprol-XL) 25 mg Tablet Sustained Release 24 hr metoprolol Daily. 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 TTE 02/02/2021 ([facility]): CT Cardiac 05/24/2021: IMPRESSION 1. Left atrial appendage anatomy, as abo ve. 2. Filling defect in left atrial appenda ge is present which is suggestive of a left atrial appendage thrombus. Encounters Date Type Specialty Care Team Description 11/04/2021 Anti-Coag Telephone Primary Care Brandon Dalton Perma nent atrial fibrillation; Visit C, [facility] [place] thrombus 11/04/2021 External Results Primary Care Rina Anton 10/31/2021 Refill Cardiology Neha Pat, Medication R efill TOOTH POLISHER 10/31/2021 Refill Primary Care Brandon Dalton LA thrombus; C, RPH Permanent atria l fibrillation 10/28/2021 Anti-Coag Telephone Primary Care FleelisabethBrandon Perma nent atrial fibrillation; Visit C, RP LA thrombus 10/28/2021 External Results Provider, His LA thrombu s; MD Elena Permanent atria l fibrillation 10/24/2021 Anti-Coag Telephone Primary Care Fleelisabeth Brandon Perma nent atrial fibrillation; Visit C, [facility] LA thrombus 10/24/2021 External Results Provider, His MD Elena 10/20/2021 Anti-Coag Telephone Primary Care Fleelisabeth, Brandon Perma nent atrial fibrillation; Visit C, [facility] LA thrombus 10/20/2021 Orders Only Primary Care Brandon Dalton LA thrombus; C, RP Permanent atria l fibrillation 10/20/2021 External Results Provider, His Permanent atrial fibrillation; MD Elena LA thrombus 10/17/2021 Anti-Coag Telephone Primary Care Fleelisabeth, Brandon Perma nent atrial fibrillation; Visit C, [facility] LA thrombus 10/17/2021 Orders Only Primary Care Brandon Dalton Permanent at rial fibrillation; C, [facility] LA thrombus 10/17/2021 External Results Provider, His MD Elena 10/14/2021 Orders Only Cardiology Neha Pat, LA thrombus TOOTH POLISHER 10/13/2021 TH Visit Cardiology Neha Pat, Permanent at rial fibrillation; (TeleHealth) TOOTH POLISHER RBBB; LA thrombus 10/12/2021 Surgery Surgery Marcelino, TRANSESOPHAGEAL MD Ronak ECHOCARDIOGRAM ([facility] 2.55) 10/12/2021 Anesthesia Event Surgery Mckinley Zarate MD Eckhardt, Adam C, TOWEL DISTRIBUTOR 10/12/2021 Hospital Encounter General Surgery Marcelino, Aortic valve stenosis, etiology of cardiac valve disease unspecified; MD Ronak Atrial fibrill ation, unspecified type 09/20/2021 Hospital Encounter Radiology Neha Pat, Cancel ed (D-MASTER TOOTH POLISHER SCHEDULE CHANGE ) 09/13/2021 Orders Only Cardiology Alexei Damon Atrial fibril Harshal hernandez MD unspecified typ e from Last 3 Months Family History Medical History Relation Comments Hyperlipidemia Brother Hypertension Brother Heart Disease Father Hyperlipidemia Father Hypertension Father Cancer Maternal Grandfather Hypertension Mother Relation Status Comments Brother Father Maternal Grandfather Maternal Grandmother Mother Paternal Grandfather Paternal Grandmother Social History Tobacco Use Types Packs/Day Years [...] Assigned at Date Recorded Not on file Last Filed Vital Signs Vital Sign Reading [...] Mass Index 31.17 10/12/2021 10:01 AM EDT Plan of Treatment Upcoming Encounters Date Type Specialty Care Team Description 11/11/2021 Anti-Coag Telephone Primary Care Visit 12/20/2021 Hospital Encounter Surgery Amna Anthony MD [facility] [place] [address] 12/20/2021 Appointment Cardiology Neha Pat APRN [facility] [place] [address] 12/20/2021 Surgery Surgery Amna Anthony MD ECHOCARDIOGRAM ([facility] 2.55) [facility] [place] [address] 12/20/2021 Office Visit Cardiology Alexei Damon MD [facility] [place] [address] Scheduled Procedures Name Priority Associated Diagnoses Date/Time TRANSESOPHAGEAL ECHOCARDIOGRAM Thrombus 0 12/20/2021 12:30 PM EDT ([facility] 2.55) Health Maintenance Due Date Last Done Comments Covid-19 Vaccine (#1) 07/28/1950 Hepatitis C Screening 1964 Lipid Screening 1964 Tdap adult 1965 Tetanus vaccine 1965 Colonoscopy 07/28/1991 Zoster vaccine (1 of 2) 1996 Advance Directive 2001 Pneumoccocal Vaccine: 65+ (1 - PCV) 07/28/2011 Influenza (Flu) vaccine (1 of 1 - Influenza standard 11/24/2021 series) Procedures Procedure Name Priority Date/Time Associated Diagnosis Comme nts EXTERNAL INR RESULTS Routine 11/04/2021 12:28 Res ults for this PANEL PM EDT procedure are i n the results section. LAB SCAN 11/04/2021 12:00 Results for this AM EDT procedure are i n the results section. PROTHROMBIN TIME Routine 10/28/2021 8:30 LA thrombus Results for this AM EDT Permanent atrial procedure a re in fibrillation the results section. PROTHROMBIN TIME Routine 10/24/2021 11:22 Results for this AM EDT procedure are i n the results section. PROTHROMBIN TIME Routine 10/20/2021 9:09 Permanent atrial Resu lts for this AM EDT fibrillation procedure are in LA thrombus the results section. PROTHROMBIN TIME Routine 10/17/2021 1:35 Results for this PM EDT procedure are i n the results section. FREDY W LMTD SPECTRAL Routine 10/12/2021 1:16 Atrial fibrillatio n, Results for this DOPPLER COLOR DOPPLER PM EDT unspecified type pr ocedure are in the results section. TRANSESOPHAGEAL 10/12/2021 10:36 Thrombus ECHOCARDIOGRAM ([facility] AM EDT Chronic a-fib 2.55) DIFFERENTIAL, AUTOMATED Routine 10/12/2021 9:29 Aortic valve R esults for this AM EDT stenosis, etiology procedure are in of cardiac valve the results disease unspecified section. HEMOGRAM Routine 10/12/2021 9:29 Aortic valve Results [...] cardiac valve the results disease unspecified section. from Last 3 Months Results (ABNORMAL) External INR Results Panel (11/04/2021 12:28 PM EDT) P athologist Signature INR 4.00 (A) EXTERNAL LAB Comment: [place] REG LAB Specimen (Source) Anatomical Collection Method Collection Time Re ceived Time Location / / Volume Laterality Blood 11/04/2021 12:28 PM EDT Historical Provider HEMATOLOGY ORDERABLES Performing Organization Address City/State/ZIP Code Phon e Number EXTERNAL FACILITY EXTERNAL LAB SCAN DOC: LAB (11/04/2021 12:00 AM EDT) Narrative This result has an attachment that is no t available. Unknown MEDIA MGR SCAN EXT ORDR/RSLT (ABNORMAL) Prothrombin Time (10/28/2021 8:30 AM EDT)Only the most recent of4 resultswithin the time period is included. P athologist Signature PT 31.2 (H) EXTERNAL LAB INR 3.30 (H) EXTERNAL LAB Specimen (Source) Anatomical Collection Method Collection Time Re ceived Time Location / / Volume Laterality Blood 10/28/2021 8:30 AM EDT Narrative This result has an attachment that is no t available. Neha Pat APRN HEMATOLOGY ORDERABLES Performing Organization Address City/State/ZIP Code Phon e Number EXTERNAL FACILITY EXTERNAL LAB FREDY W LMTD SPECTRAL DOPPLER COLOR DOPPLER [...] 1945 ? Height: 68 in ? Account: [id number] Age: 76 yrs ? Weight: 205 lb Gender: Male ?BSA: 2.1 m2 Ordering Physician: ALEXEI DAMON Referring Physician: ALEXEI DAMON Performed By: Hussain Stoll MD History: Atrial fibrillation Interpreting Fellow: Hussain Stoll. Exam Location: [facility]. Interpretation Summary 1. Directed FREDY to assess [...] to the prior echocardiograph ic report from [facility] on 04/01/21, a left atrial appendage thrombus [...] from the original. Transesophageal Echocardiogram Report Name: SERA SOLIZ Study Date: 10/13/19 10:38 AMBP: 154/104 mmHg Patient Location: OR^ORM N^A HR: 94 : 1945 Height: 68 in Account: [id number] Age: 76 yrs Weight: 205 lb Gender: Male BSA: 2.1 m2 Ordering Physician: ALEXEI DAMON Referring Physician: ALEXEI DAMON Performed By: Hussain Stoll MD History: Atrial fibrillation Interpreting Fellow: Hussain Stoll. Exam Location: [facility]. Interpretation Summary 1. Directed FREDY to assess [...] to the prior echocardiograph ic report from [facility] on 04/01/21, a left atrial appendage thrombus [...] Code Phon e Number HEARTLAB SYSTEM (ABNORMAL) Hemogram (10/12/2021 9:29 AM EDT) Analysis Performed At [facility] logist Time Signature WBC 9.9 (H) 4.0 - 9.5 [facility] x[facility](3[facility] LABORATORY RBC 5.26 4.58 - ZHENG DINESH 5.54 [facility] x10(6)/[facility] LABORATORY Hemoglobin 16.3 13.7 - [facility] 16.5 g/dL [facility] LABORATORY Hematocrit 47.7 40.5 - [facility] 48.5 % [facility] LABORATORY MCV 90.7 82.9 - [facility] 93.1 [facility] LABORATORY MCH 31.0 27.5 - [facility] 32.[address] [facility] LABORATORY MCHC 34.2 32.0 - [facility] 35.7 g/dL [facility] LABORATORY Platelets 180 145 - 357 [facility] x10(3)/[facility] LABORATORY RDWSD 45.1 (H) 36.0 - [facility] 45.0 [facility] LABORATORY RDWCV 13.3 11.4 - [facility] 13.8 % [facility] LABORATORY MPV 12.1 7.6 - 12.9 [facility] LABORATORY nRBC % Auto 0.0 % [facility] LABORATORY nRBC Abs Auto 0.000 0.000 - [facility] 0.000 [facility] x10(3)/[facility] LABORATORY Specimen Anatomical Collection Method Collection Time Receive d Time (Source) Location / / Volume Laterality Blood 10/12/2021 9:29 AM 9:49 EDT AM EDT Resulting Agency Comment Spec In Lab Neha Pat APRN HEMATOLOGY ORDERABLES Performing Organization Address City/State/[place] [address] (ABNORMAL) Differential, Automated (10/12/2021 9:29 AM EDT) Patholo gist Method Time Signature Neutrophils % 72.5 % [facility] LABORATORY Neutr Abs (ANC) 7.19 (H) 1.70 - [facility] 6.10 [facility] x10(3)/[facility] LABORATORY Lymphocytes % 14.9 % [facility] LABORATORY Lymphocytes Abs 1.5 0.9 - 3.2 [facility] x10(3)/[facility] LABORATORY Monocytes % 9.4 % [facility] LABORATORY Monocyte Abs 0.9 0.3 - 0.9 [facility] x10(3)/[facility] LABORATORY Eosinophils % 2.1 % [facility] LABORATORY Eosinophils Abs 0.2 0.0 - 0.4 [facility] x10(3)/[facility] LABORATORY Basophils % 0.6 % [facility] LABORATORY Basophils Abs 0.1 0.0 - 0.1 [facility] x10(3)/[facility] LABORATORY Immature Gran % 0.50 % [facility] LABORATORY Comment: Immature granulocytes(IG's)percentage an d absolute count will include metamyelocytes, myelocytes, and promyelo cytes. Blood smears from CBCs yielding IG's will be scanned manually for concor dance. If this scan disagrees with the automated IG or if promyelocytes are not ed, a manual differential will be performed. Rubia Gran Abs 0.05 (H) 0.00 - 0.04 x10(3)/[facility] LABORATORY Specimen Anatomical Collection Method Collection Time Receive d Time (Source) Location / / Volume Laterality Blood 10/12/2021 9:29 AM 9:49 EDT AM EDT Resulting Agency Comment Spec In Lab Neha Pat APRN HEMATOLOGY ORDERABLES Performing Organization Address City/State/[place] [address] Comprehensive metabolic panel (non-fasting) (10/12/2021 9:29 AM EDT) P athologist Signature Glucose Lvl 100 65 - 199 [facility] mg/dL [facility] LABORATORY Comment: Diabetes: >=200 mg/dL plus symp toms BUN 14 10 - 20 mg/dL [facility] LABORATORY Creatinine 1.03 0.80 - 1.50 mg/dL [facility] LABORATORY Sodium 137 135 - 145 mmol/L [facility] LABORATORY Potassium 4.4 3.5 - 5.0 mmol/L [facility] LABORATORY Comment: Please note: ??Patients with WBC >100,00 0 may have falsely elevated Potassium levels. ??For accurate Potassium quantif ication in these patients send serum separator tube (gold top) for subsequent determinations. ??Contact the Clinical Chemistry Laboratory if there are any qu estions. Chloride 105 98 - 107 mmol/L [facility] LABORATORY CO2 25 22 - 31 mmol/L [facility] LABORATORY Anion Gap 7 5 - 15 mmol/L [facility] LABORATORY Calcium 9.0 8.5 - 10.5 mg/dL [facility] LABORATORY Total Protein 6.8 6.1 - 8.0 g/dL [facility] LABORATORY Albumin 4.2 3.2 - 5.2 g/dL [facility] LABORATORY AST 21 0 - 39 unit/L [facility] LABORAT[facility] ALT 17 0 - 55 unit/L [facility] LABOR[facility]ORY Alk Phos 58 40 - 130 unit/L [facility] LABORATORY Total Bilirubin 0.7 0.2 - 1.3 mg/dL [facility] LABORATORY Estimated GFR 76 >=60 mL/min/1.73 m?? [facility] LABORATORY Comment: This patient's estimated GFR [...] / Volume Laterality Blood 10/12/2021 9:29 AM 9:50 EDT AM EDT Resulting Agency Comment Spec In Lab Neha Pat TOOTH POLISHER CHEMISTRY ORDERABLES Performing Organization Address City/State/[place] [address] from Last 3 Months Insurance Payer Benefit Plan / Subscriber ID Effective Dates Phone Addre ss Type Group [employer] MANAGED CIGNA TRUE [id number] [phone] [address] MEDICARE CHOICE MANAGED t 8 [id number] [place] [address] Care Teams [employer] Delivery Driver Relationship Specialty Start Date End Date None PCP - General 10/05/21 None
--- OUTSIDE RECORDS SUMMARY | 2021-11-11 01:52 | XMS_ITS | Encounter Summary ---
:1945 Author Organization [facility] [place] [address] Care Team Providers Name Role Phone Jb Mcneill DO Primary Care Provider Reason for Visit Reason Comments Rash itchy rash all over body pre sent for 1 year Consultation (Routine) - Specialty Diagnoses / Procedures Referred By Contact Refer red To Contact Dermatology Diagnoses Eczema Jb Mcneill DO [facility] [address] [place], [place] [address] [place] [phone] Fax: Referral ID Status Reason Start Date Expiration Date Visits V isits Requested Authorized [id number] Consult, Test 03/31/2019 03/30/2020 6 6 & Treat PCP Updated and/or Approved Encounter Details Date Type Department Care Team Description 05/13/2019 Office Visit Dermatology at [facility] Regis Monet E czema, unspecified Road type [address] [place] [address] [facility] [place], [place] [address] Social History Tobacco Use Types Packs/Day Years Used Date Never Assessed Sex Assigned at Date Recorded Not on file documented as of this encounter Patient Instructions Patient InstructionsJesus Alberto Grover - 05/13/2019 5:30 PM EST Sensitive Skin Care ?? Discontinue ALL current personal care products. This includes soap, body wash, shampoo and conditioner, fragrance, nail frisian, lotions and creams, laundry soap and fabric softener. ?? Take lukewarm showers. Use soap as needed. Pat skin dry. ?? Immediately after showering, start Rx: triamcinolone 0.1% ointment apply to the affected areas neck-down twice daily as needed. Ok to use up to 21 days per month. ?? Immediately after bathing and application of topical steroid, apply moisturizing cream to body, such as CeraVe cream or Cetaphil cream ?? Use only the following personal care products. They are are recommended by our clinic because they have been extensively tested and are least likely to cause distress to your skin. ?? Soap: Dove Unscented Bar Soap or Vanicream Bar Soap ?? Shampoo and Conditioner: Free&Clear shampoo, Free&Clear conditioner ?? Moisturizer: CeraVe cream, Vaseline, Cetaphil cream, Vanicream cream use twice daily ?? Laundry Detergent: ALL Free&Clear or Tide Free and Gentle. . Do not use fabric softener or dryer sheets. ?? Recommend OTC Zyrtec take 1-2 tablets as needed. If you have any questions or concerns, please call documented in this encounter Progress Notes Regis Monet - 05/13/2019 5:30 PM EST Images from the original note were not included. DERMATOLOGY - NEW PATIENT NOTE Date of service: 05/13/2019 Norris Polanco : 1945, 73 y.o. Chief Complaint: Rash HPI: Norris Polanco is a 73 y.o. male referred by Jb Mcneill with the following concerns: Patient presents today for rash on the chest, arms, pubic area, and abdomen. The onset was Apr 2018.During initial onset, the rash was localized to the pubic area, but has since developed on the abdomen, chest, back and behind the ears. Recently, patient has developed the rash on the upper arms, but notes resolution of rash on the pubic area. No involvement of buttocks and lower extremities. Not seasonally triggered. He rates the itchiness as a 4-5/10, which typically occurs at nighttime. The itchiness does wake him up from his sleep. Previously treated with hydrocortisone cream and A&D cream without improvement. For the past week, patient has been moisturizing with baby oil within a few minutes after lukewarm showering with notable improvement, but without resolution. Changed laundry detergent from [employer] to biodegradable laundry detergent 2-3 weeks ago. Not using dryer sheets. He denies any new medication or skin care products prior to onset of symptoms. Patient spends a lot oftime working with barn animals (pigs, sheep), woodworking, and brewing apple cider. Patient also swims 3-4 times weekly. Patient is concerned that his symptoms are due to parasite or arthropod bites. Patient also notes that 2-3 months prior to onset of symptoms, he received a shingles vaccine, but unsure if it was Shingrix or Zostavax. Relevant Skin History: - Okay to leave detailed message with results? Yes - Skin cancer (including type): No - No known hx. Family History: - Melanoma: no - No histoy Relevant Social History: - Retired - Hobbies: Woodworking, brews apple ciders - Tends to barn animals (pigs, sheep) - Recently got a kitten Meds: Current Outpatient Medications Medication Sig Dispense Refill ??? metoprolol succinate XL (Toprol-XL) 25 mg Tablet Sustained Release 24 hr Take 25 mg by mouth daily. ??? aspirin 325 mg Tablet Take 325 mg by mouth daily. No current facility-administered medications for this visit. Allergies: No Known Allergies Review of Systems: - General: Feels well. - Skin: No other skin concerns. Examination: - Constitutional: Patient was alert, well-appearing and in no noticeable distress. - Skin: Skin examination of the scalp, face, ears, neck, back, chest, axillae, abdomen, right and left upper extremities, right and left lower extremities, hands, feet, and buttocks was normal with theexception of the findings listed below. Genitalia examined with patient's permission. - Jesus Alberto Choudhuryjairo was present and on standby during my examination. Diagnosis/Skin findings/Assessment/Plan: Eczema vs Allergic contact dermatitis - Erythematous patches on the bilateral proximal arms and periumbilical; broad, erythematous, scaly, thin plaques on the flanks - Reassured that current examination finding and history are not consistent with parasitic or scabies, mites, or tick bites - Recommend to stop moisturizing with baby oil; consider moisturizing with CeraVe or Cetaphil cream within a few minutes after showering after application of topical steroid as noted below - Start Rx: triamcinolone 0.1% ointment (454 g) apply to the affected areas neck-down twice daily asneeded. Ok to use up to 21 days per month. - Stop current skin care products. Recommend sensitive skin care as follows: washing with Dove sensitive skin bar soap, showering with lukewarm water, moisturizing with CeraVe cream or Cetaphil cream within a few minutes after getting out of the shower, and All Free & Clear laundry detergent or Tide Free and Gentle. As discussed during encounter. - Given baseline sleep apnea patient is concerned due to drowsiness side-effect associated with Rx hydroxyzine, recommend OTC cetirizine (Zyrtec) take 1-2 tablets daily as needed. - If not well-controlled, briefly discussed patch testing - Discussed that Zostavax (live vaccine) has known side effect to rash, while there is no current data that suggests that Shingrix (inactivated vaccine) has known associated risk for rash. RTC: PRN Note initiated by Lennie Ma CMA. We, Jesus Alberto Grover and Lennie Ma CMA, have performed the documentation for this encounter in the presence of and acting as a scribe for Regis Monet MD. I performed the services which were documented by the scribe, and I agree with the accuracy of the documentation in this encounter. Regis Monet MD Reviewed and signed by Regis Monet MD Resident in Dermatology [facility] Patient seen in conjunction with staff electric motor assembler and tester: Reynaldo Cuenca MD Section of Dermatology [facility] Reynaldo Cuenca MD - 05/13/2019 5:30 PM EST I directly supervised Dr. Monet during this office visit. Dr. Monet presented the history and physical exam to me. I then saw and examined this patient with Dr. Monet. We reviewed the history andpertinent details and I confirmed the physical findings. I agree with the details of the history and physical exam as documented in Dr. Monet' note. REYNALDO CUENCA MD Staff Physician documented in this encounter Plan of Treatment Upcoming Encounters Date Type Specialty Care Team Description 11/11/2021 Anti-Coag Telephone Primary Care Visit 12/20/2021 Hospital Encounter Surgery Amna Anthony MD [facility] [place] [address] 12/20/2021 Appointment Cardiology Neha Pat [place] [facility] [place] [address] 12/20/2021 Surgery Surgery Aman Anthony MD ECHOCARDIOGRAM ([facility] 2.55) [facility] [place] [address] 12/20/2021 Office Visit Cardiology Lance Damon MD [facility] [place] [address] Scheduled Procedures Name Priority Associated Diagnoses Date/Time TRANSESOPHAGEAL ECHOCARDIOGRAM Thrombus 0 12/20/2021 12:30 PM EDT ([facility] 2.55) documented as of this encounter Visit Diagnoses Diagnosis Eczema, unspecified type Thrombus Embolism and thrombosis of unspecified s ite documented in this encounter Care Teams Cook Taco Relationship Specialty Start Date End Date Jb Mcneill DO PCP - General Family Medicine 05/13/19 10/04/[address] [place] [address] [address] [facility] [address] [place] [address] documented as of this encounter
--- OUTSIDE RECORDS SUMMARY | 2021-11-11 01:52 | XMS_ITS | Encounter Summary ---
:1945 Author Organization [facility] Address [place] [id number] Care Team Providers Name Role Phone Jb Mcneill DO Primary Care Provider Reason for Referral Diagnostic Test (Routine) - Pending Review Specialty Diagnoses / Procedures Referred By Contact Refer red To Contact Radiology Diagnoses Permanent atrial fibrillation Neha Pat APRN [facility] Rad Ct Scan Procedures CT Cardiac for Morphology & Function [facility] [place] [address] [place] [address] Phone: Referral ID Status Reason Start Expiration Visits Visits Date Date Requested Authorized [id number] Pending Specialty 09/07/2021 12/06/2021 1 1 Review Service Requested Reason for Visit Consultation (Routine) - Authorized Specialty Diagnoses / Procedures Referred By Contact Refer red To Contact Cardiology Diagnoses Unspecified atrial fibrillation STRUCTURAL CARD - 08/2021 f/up afib. Watchman procedure Susan Desir MD [facility] Cardiology [address] [address] [address] SAMI Jacobsen [facility] [address] [place] [phone] [place], [place] Phone: [phone] Referral ID Status Reason Start Expiration Visits Visits Date Date Requested Authorized [id number] Authorized Consult, 04/01/2021 04/01/2022 6 6 [facility] PCP Updated and/or Approved Encounter Details Date Type Department Care Team Description 05/24/2021 Office Visit Cardiology at [facility] Lance Damon, Permanent atrial [facility] MD may ([address] Drive [facility] Dx) [place] [address] [place] [address] [phone] Social History Tobacco Use Types Packs/Day Years [...] Sign Reading Time Taken Comments Blood Pressure 144/92 05/24/2021 1:23 PM EST Pulse 74 05/24/2021 1:23 PM EST Temperature - - Respiratory Rate - - Oxygen Saturation 99% 05/24/2021 1:23 PM EST Inhaled Oxygen Concentration - - Weight 100.8 kg (222 lb 4.8 oz) 05/24/2021 1:23 PM EST Height 172.7 cm (5' 8) 05/24/2021 1:23 PM EST reported Body Mass Index 33.8 05/24/2021 1:23 PM EST documented in this encounter Progress Notes Neha Pat APRN - 05/24/2021 1:20 PM EST Images from the original note were not included. [facility] [place] [phone] Structural Heart New Patient Subjective: HPI: Norris Polanco is a 75 y.o. male with past medical history of atrial fibrillation (dx 2009, not on OAC), tobacco abuse, neuritis and chronic pruritis who presents to the structural heart clinic after being referred by Dr. Desir for consideration of left atrial appendage occlusion. He has no history of significant bleeding in the past, but is noted to live a very active life and would like to be off of pharmacologic therapy in this setting. 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 Given his low [id number] he has not been on anticoagulation up until this time. He has had no significant bleeding events in the past, TIA, or stroke. At today's visit he denies acute cardiac issues such as chest pain, shortness of breath, lower extremity swelling or syncope. 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 Permanent atrial fibrillation I48.21 ROS: 12+ ROS reviewed and negative except as detailed in the HPI. Medications: Current Outpatient Medications Medication Sig Note Dispense Refill ??? aspirin EC 81 mg Tablet, Delayed Release (E.C.) Take 81 mg by mouth Daily. ??? metoprolol succinate XL (Toprol-XL) 50 mg Tablet Sustained Release 24 hr Daily. ??? metoprolol succinate XL (Toprol-XL) 25 mg Tablet Sustained Release 24 hr Take 25 mg by mouth daily. 05/24/2021: Per patient - Unknown Dose - 1/2 tablet DAILY Objective: Vitals: Vitals: 05/24/21 1323 BP: (!) 144/92 Patient Position: Sitting Pulse: 74 SpO2: 99% Weight: 100.8 kg (222 lb 4.8 oz) Height: 172.7 cm (5' 8) Physical Exam: General: Pleasant male, no acute distress HEENT: Normocephalic, atraumatic, benign NECK: Supple, no masses, FROM CV: Normal rate, irregular rhythm RESP: CTAB GI: Soft, nd, nttp EXT: No cyanosis/clubbing, no edema NEURO: No gross focal deficits PSYC: Appropriate mood and affect, alert and oriented DERM: No rash, wwp Diagnostics: CT 05/24/2021 FINDINGS: Left atrial appendage: Diameter: 19.5 x 33.9 mm Length: 64.7mm ?? Accessory appendage or diverticulum: None. Left atrial or atrial appendage filling defects:Present. Accessory pulmonary venous drainage: None. ?? Other cardiovascular structures: Filling defect in left atrial appendage is present which is suggestive of a thrombus. Bi-atrial enlargement is present. Interventricular and inter-atrial septum are intact. Mild aortic valve calcification is present. Proximal pulmonary arteries are without thrombus. Pulmonary parenchyma, airways, and pleura: Limited field of view No significant findings. ?? IMPRESSION 1. Left atrial appendage anatomy, as above. 2. Filling defect in left atrial appendage is present which is suggestive of a left atrial appendage thrombus. Recent Results (from the past 72 hour(s)) Comprehensive metabolic panel (non-fasting) Result Value Glucose Lvl 84 BUN 15 Creatinine 0.91 Sodium 140 Potassium 4.4 Chloride 105 CO2 25 Anion Gap 10 Calcium 9.0 Total Protein 6.8 Albumin 4.3 AST 27 ALT 31 Alk Phos 58 Total Bilirubin 0.4 Estimated GFR 83 Hemogram Result Value WBC 8.2 RBC 5.33 Hemoglobin 16.7 (H) Hematocrit 48.7 (H) MCV 91.4 MCH 31.3 MCHC 34.3 Platelets 170 RDWSD 45.4 (H) RDWCV 13.4 MPV 11.9 nRBC % Auto 0.0 nRBC Abs Auto 0.000 Differential, Automated Result Value Neutrophils % 64.3 Neutr Abs (ANC) 5.24 Lymphocytes % 18.9 Lymphocytes Abs 1.5 Monocytes % 12.9 Monocyte Abs 1.0 (H) Eosinophils % 2.7 Eosinophils Abs 0.2 Basophils % 0.7 Basophils Abs 0.1 Immature Gran % 0.50 Rubia Gran Abs 0.04 Cardiac CTA 05/24/21 FINDINGS: Left atrial appendage: Diameter: 19.5 x 33.9 mm Length: 64.7mm ?? Accessory appendage or diverticulum: None. Left atrial or atrial appendage filling defects:Present. Accessory pulmonary venous drainage: None. ?? Other cardiovascular structures: Filling defect in left atrial appendage is present which is suggestive of a thrombus. Bi-atrial enlargement is present. Interventricular and inter-atrial septum are intact. Mild aortic valve calcification is present. Proximal pulmonary arteries are without thrombus. Pulmonary parenchyma, airways, and pleura: Limited field of view No significant findings. ?? IMPRESSION 1. Left atrial appendage anatomy, as above. 2. Filling defect in left atrial appendage is present which is suggestive of a left atrial appendage thrombus. Assessment and Plan: Atrial Fibrillation LA Thrombus Norris Polanco is a 75 y.o. male who presents to the structural heart team for consideration of left atrial appendage occlusion. On review of today's imaging, he unfortunately was noted to have a fillingdefect of the left atrial appendage suggestive for thrombus. In this setting he would not be a candidate for the watchman procedure at this time. Nevertheless, we recommended that he initiate oral anticoagulation (Eliquis 5 mg twice daily) and follow-up in clinic in [address] scan. If thethrombus is no longer present, we will rediscuss with him his interest and candidacy for a watchman at that time. Follow up: 3 months Neha Pat APRN Thank you for the opportunity to participate in this patient's cardiovascular care. Please see addendum by Dr. Damon for final plan and recommendations. ?? Cardiology Staff --- Medical Decision Making ?? I shared this visit with Neha Pat APRN. ??My role was to review the history, exam, and laboratoryand imaging findings and to formulate the assessment and plan. ??This included review of records prior to appointment, face to face time with patient during visit, documentation, order enctry, and coordination of care. 75 yo man who is happily retired and incredibly active. He is hoping to consider non-pharmacologic means of future stroke prevention, such as left atrial appendage occlusion. On his pre-assessment imaging today, he unfortunately has evidence of left atrial appendage thrombus. Given the risk of precipitating stroke with instrumentation,left atrial appendage occlusion would not advisedat this time. He understands this concern. We did initiate him on oral anticoagulation (apixaban) with plan for repeat CTA and clinical follow-up here in approximately 12 weeks time. If the thrombus has resolved/no longer present, he may be interested in discussing further the option of appendage occlusion at that point vs. continued systemic oral anticoagulation. The assessment and plan were formulated in discussion with me and I agree with them as documented.?Thank you for the opportunity to participate in his care.? Lance Damon MD Structural Heart Disease Pager [phone] documented in this encounter Miscellaneous Notes Addendum Note - Neha Pat APRN - 05/24/2021 1:20 PM EST Addended by: NEHA PAT on: 05/26/2021 08:14 AM Modules accepted: Orders Addendum Note - Neha Pat APRN - 05/24/2021 1:20 PM EST Addended by: NEHA PAT on: 05/26/2021 10:53 AM Modules accepted: Orders Addendum Note - Neha Pat APRN - 05/24/2021 1:20 PM EST Addended by: NEHA PAT on: 05/27/2021 08:29 AM Modules accepted: Orders documented in this encounter Plan of Treatment Upcoming Encounters Date Type Specialty Care Team Description 11/11/2021 Anti-Coag Telephone Primary Care Visit 12/20/2021 Hospital Encounter Surgery Amna Anthony MD [facility] [address] 12/20/2021 Appointment Cardiology Neha Pat APRN [facility] [place] [address] 12/20/2021 Surgery Surgery Amna Anthony MD ECHOCARDIOGRAM ([facility] 2.55) [facility] [place] [address] 12/20/2021 Office Visit Cardiology Lance Damon MD [facility] [place] [address] Scheduled Orders Name Type Priority Associated Diagnoses Order S chedule CT Cardiac for Imaging Routine Permanent atrial Expected: 08/24/2021 Morphology & Function fibrillation (Appro ximate), Expires: 2021 Scheduled Procedures Name Priority Associated Diagnoses Date/Time TRANSESOPHAGEAL ECHOCARDIOGRAM Thrombus 0 12/20/2021 12:30 PM EDT ([facility] 2.55) documented as of this encounter Procedures Procedure Name Priority Date/Time Associated Diagnosis Comme nts EKG 12-LEAD Routine 05/24/2021 2:14 PM Permanent atrial Resul ts for this EST fibrillation procedure are i n the results section. documented in this encounter Results EKG 12 Lead (05/24/2021 2:14 PM EST) Component Value Ref Range Test Analysis Performed Pathologis t Method Time At Signature Ventricular rate 80 BPM MUSE SYSTEM QRS Duration 152 ms MUSE SYSTEM Q-T Interval 412 ms MUSE SYSTEM QTC Calculated 475 ms MUSE SYSTEM (Bezet) Calculated R [place] -58 degrees MUSE SYSTEM Calculated T [place] -17 degrees MUSE SYSTEM INTERPRETATION Atrial fibrillation MUSE SYSTEM Right bundle branch block Cannot rule out Inferior infarct , age undetermined Abnormal ECG No previous ECGs available Confirmed by MD Marcelino, Ronak ([id number]) on 05/25/2021 7:45: 54 AM Specimen Anatomical Collection Method Collection Time Receive d Time (Source) Location / / Volume Laterality 05/24/2021 2:14 PM 7:45 EST AM EST Neha Pat APRN ECG ORDERABLES Performing Organization Address City/State/ZIP Code Phon e Number MUSE SYSTEM documented in this encounter Visit Diagnoses Diagnosis Permanent atrial fibrillation - Primary Atrial fibrillation Thrombus Embolism and thrombosis of unspecified s ite documented in this encounter Care Teams Shopper Insights Manager Relationship Specialty Start Date End Date bJ Mcneill DO PCP - General Family Medicine 05/13/19 10/04/[address] [place] [address] documented as of this encounter
--- OUTSIDE RECORDS SUMMARY | 2021-11-11 01:52 | XMS_ITS | Encounter Summary ---
:1945 Author Organization [facility] [place] [address] Care Team Providers Name Role Phone None Primary Care Provider Unavailable Encounter Details Date Type Department Care Team Description 10/17/2021 Orders Only [facility] Centralized Brandon Dalton, Perman ent atrial fibrillation; Anticoagulation [place] [phone] Social History Tobacco Use Types Packs/Day [...] 12/20/2021 Hospital Encounter Surgery Amna Anthony MD [facility] [place] [address] 12/20/2021 Appointment Cardiology Neha Pat [place]N [facility] [place] [address] 12/20/2021 Surgery Surgery Amna Anthony MD ECHOCARDIOGRAM ([facility] 2.55) [facility] [place] [address] 12/20/2021 Office Visit Cardiology Lance Damon MD [facility] [place] [address] Scheduled Orders Name Type Priority Associated Diagnoses Order S chedule Prothrombin Time Lab Routine Permanent atrial As Need ed for 99 fibrillation Occurrences starting LA thrombus 10/17/2021 unti l 10/17/2022, 1 c ompleted Scheduled Procedures Name Priority Associated Diagnoses Date/Time TRANSESOPHAGEAL ECHOCARDIOGRAM Thrombus 0 12/20/2021 12:30 PM EDT ([facility] 2.55) documented as of this encounter Results (ABNORMAL) Prothrombin Time (10/20/2021 9:09 AM EDT) P athologist Signature PT 20.6 (H) EXTERNAL LAB INR 2.10 (H) EXTERNAL LAB Specimen (Source) Anatomical Collection Method Collection Time Re ceived Time Location / / Volume Laterality Blood 10/20/2021 9:09 AM EDT Narrative This result has an attachment that is no t available. Neha Pat APRN HEMATOLOGY ORDERABLES Performing Organization Address City/State/ZIP Code Phon e Number EXTERNAL FACILITY EXTERNAL LAB documented in this encounter Visit Diagnoses Diagnosis Permanent atrial fibrillation Atrial fibrillation LA thrombus Other ill-defined heart disease Thrombus Embolism and thrombosis of unspecified s ite documented in this encounter Care Teams Screw Machine Set Up Operator Tool Relationship Specialty Start Date End Date None PCP - General 10/05/21 None documented as of this encounter
--- OUTSIDE RECORDS SUMMARY | 2021-11-11 01:52 | XMS_ITS | Encounter Summary ---
:1945 [place] [address] Care Team Providers Name Role Phone None Primary Care Provider Unavailable Reason for Visit Auth/Cert Specialty Diagnoses / Procedures Referred By Contact Refer red To Contact Diagnoses Chronic atrial fibrillation, unspecified Thrombus [I82.90] Chronic a-fib [I48.20] Watchman w/u ? thrombus Ronak Benson MD [facility] Procedures PRG FREDY REAL TIME IMG 2D W PRB IMG ACQUIS I&R TRANSESOPHAGEAL ECHOCARDIOGRAM (WRVU 2.55) [facility] [place] [address] Referral ID Status Reason Start Date Expiration Date Visits Requ ested Visits Authorized [id number] 1 1 Encounter Details Date Type Department Care Team Description 10/12/2021 Anesthesia Event Main Operating Room Mckinley Zamora MD [facility] [place] [address] [facility] Gregorio Gloria CRNA [facility] [place] [address] [facility] [place] [address] Anesthesia Record Procedure Summary Procedure Name Responsible Anesthesia Start Anesthesia Stop Anesthesiologist Time Time TRANSESOPHAGEAL Mckinley Zarate MD 10/12/21 1037 10/12/21 1 104 ECHOCARDIOGRAM (WRVU 2.55) (N/A ) Events Date Time Event Comment 10/12/2021 1007 1037 AN Verify 1037 Start 1040 An Start Data 1043 Anesthesia Ready 1104 an stop data 1104 Recovery or ICU Handoff Patient care was transferred to the destination unit staff after review of the patient's medica l history, current anesthetic/surgi lars status and plan, according to the Provider Handoff Checklist. 1104 Stop Name Total Propofol 50 mg Propofol INF 227.85 mg PHENYLephrine 80 mcg Lactated Ringers 0 mL Agents Name O2 Auxiliary Flowmeter 1 Blood No blood administrations on file. Lines, Drains, and Airways Type Details Placement Removal PIV 10/12/21; 1022; median 10/12/21 1022 by Kiran, 10/12/21 1236 by Becky, cubital vein (antecubital BERNARD Sewell RN fossa), left; [id number] catheter system; Anatomical Landmarks; 20 gauge, 1 in length; distraction, intradermal injection, tolerated well; no longer indicated, removed per policy/procedure, catheter/device intact; 10/12/21; 1236 documented in this encounter Social History Tobacco Use Types Packs/Day Years [...] on file documented as of this encounter OR Notes Anesthesia Postprocedure Evaluation - Mckinley Zarate MD - 10/12/2021 11:55 AM EDT Department of Anesthesiology Post-procedure Note Patient: Norris Polanco Procedure Summary Date: 10/12/21 Room / Location: [facility] / [facility] MAIN OR Anesthesia Start: 1037 Anesthesia Stop: 1104 Procedure: TRANSESOPHAGEAL ECHOCARDIOGRAM (WRVU 2.55) (N/A ) Diagnosis: Thrombus Chronic a-fib (Watchman w/u ? thrombus) Surgeons: Ronak Benson MD Responsible Provider: Mckinley Zarate MD Anesthesia Type: MAC ASA Status: 2 All Anesthesia Providers: Anesthesiologist: Mckinley Zarate MD SHIP MATE: Gregorio Gloria CRNA Vitals Value Taken Time BP 123/93 10/12/21 1145 Temp 36.2 ??C (97.2 ??F) 10/12/21 1108 Pulse 78 10/12/21 1155 Resp 17 10/12/21 1155 SpO2 98 % 10/12/21 1155 Pain Level 0 10/12/21 1130 Vitals shown include unvalidated device data. Patient Location: PACU/[facility] Level of Consciousness: Conscious but Sleepy Pain Management: Satisfactory Analgesia PONV: None Cardiovascular Status: Hemodynamically Stable Respiratory Status: Stable Respiratory Status Postoperative Fluid Status: Intravascular EUvolemia Possible Anesthetic Complications: NONE apparent at time of evaluation Final Primary Anesthesia Type: MAC (The anesthetic type performed was the same as planned.) Comments: Anesthesia Preprocedure Evaluation - Mckinley Zarate MD - 10/11/2021 6:01 PM EDT Pre-Anesthesia Evaluation for: Norris Polanco a 76 y.o. male. Procedure(s): TRANSESOPHAGEAL ECHOCARDIOGRAM (VU 2.55) Patient Active Problem List Diagnosis Date Noted ??? RBBB 09/05/2021 ??? Permanent atrial fibrillation 05/17/2021 No past medical history on file. No past surgical history on file. Social History Tobacco Use ??? Smoking status: Never Smoker ??? Smokeless tobacco: Current User Types: Chew Substance Use Topics ??? Alcohol use: Yes Comment: A few times per week Social History Substance and Sexual Activity Drug Use Not on file No Known Allergies Medications: MAR and/or home medications have been reviewed. Physical Exam: Preprocedure Vitals Current as of 10/11/21 1801 No BP, pulse, respiration, SpO2, or temperature recorded. Height: Weight: BMI: IBW: Airway Assessment: Mallampati: III TM distance: >3 FB Neck ROM: limited Cardiovascular Assessment: Rhythm: irregular Pulmonary Assessment: pulmonary exam normal Dental Assessment: - normal exam Misc Assessment: IV access: Peripheral line Last Filed Perioperative Cognitive Screening None Anesthesia Plan: ASA 2 MAC, with a(n) intravenous induction Medical record reviewed. Patient to undergo FREDY in the management of Afib No contraindication to proceeding Plan: MAC deep sedation Region - Other Informed Consent: Anesthetic plan and risks discussed with patient. Plan discussed with SHIP MATE and attending. Anesthesia Screening documented in this encounter Plan of Treatment Upcoming Encounters Date Type Specialty Care Team Description 11/11/2021 Anti-Coag Telephone Primary Care Visit 12/20/2021 Hospital Encounter Surgery Amna Anthony MD [facility] [place] [address] 12/20/2021 Appointment Cardiology Neha Pat APRN [facility] [place] [address] 12/20/2021 Surgery Surgery Amna Anthony TRANSGAYE SINGLETON MD ECHOCARDIOGRAM ([facility] 2.55) [facility] [place] [address] 12/20/2021 Office Visit Cardiology Lance Damon MD [facility] [place] [address] Scheduled Procedures Name Priority Associated Diagnoses Date/Time TRANSESOPHAGEAL ECHOCARDIOGRAM Thrombus 0 12/20/2021 12:30 PM EDT ([facility] 2.55) documented as of this encounter Visit Diagnoses Not on filedocumented in this encounter Administered Medications Inactive Administered Medications - up to 3 most recent administrations Medication Order MAR Action Action Date Dose Rate Site lactated ringers infusion New Bag 10/12/2021 10:43 AM EDT Intravenous, CONTINUOUS PRN, Starting on Sun10/12/21 at 1043, Until Sun10/12/21 at 1104, Anesthesia Intra-op PHENYLephrine in NS (PF) (DOUGIE-SYNEPHRINE) Given 10/12/2021 10:55 AM EDT 80 mcg 0.8 mg/10 mL (80 mcg/mL) multi-dose injection Syrg Intravenous, PRN, Starting on Sun10/12/21 at 1055, Until Sun10/12/21 at 1104, Anesthesia Intra-op, Routine propofoL (Diprivan) (10 mg/mL) New Bag 10/12/2021 10:46 175 mc g/kg/min 97.65 mL/hr infusion AM EDT Intravenous, CONTINUOUS PRN, Starting on Sun10/12/21 at 1046, Until Sun10/12/21 at 1104, Anesthesia Intra-op, Routine propofoL (Diprivan) 10 mg/mL bolus injection Given 10:46 AM EDT 50 mg (Anesthesia) Intravenous, PRN, Starting on Sun10/12/21 at 1046, Until Sun10/12/21 at 1104, Anesthesia Intra-op documented in this encounter Care Teams Front Office Specialist Relationship Specialty Start Date End Date None PCP - General 10/05/21 None documented as of this encounter
--- OUTSIDE RECORDS SUMMARY | 2021-11-11 01:52 | XMS_ITS | Encounter Summary ---
:1945 [place] [address] Care Team Providers Name Role Phone None Primary Care Provider Unavailable Encounter Details Date Type Department Care Team Description 10/28/2021 External Results [facility] Provider, His [place] thrombus; [facility] MD Elena Permanent atrial fibrillation Information Services None [address] [place] [address] Social History Tobacco Use Types Packs/Day Years [...] 12/20/2021 Hospital Encounter Surgery Amna Anthony MD [facility] [address] 12/20/2021 Appointment Cardiology Neha Pat [place] [facility] [place] [place] [address] 12/20/2021 Surgery Surgery Amna Anthony MD ECHOCARDIOGRAM ([facility] [address] [place] [address] 12/20/2021 Office Visit Cardiology Lance Damon [place] [address] Scheduled Procedures Name Priority Associated Diagnoses Date/Time TRANSESOPHAGEAL ECHOCARDIOGRAM Thrombus 0 12/20/2021 12:30 PM EDT ([facility] 2.55) documented as of this encounter Procedures Procedure Name Priority Date/Time Associated Diagnosis Comme nts PROTHROMBIN TIME Routine 10/28/2021 8:30 AM [place] thrombus Results for this EDT Permanent atrial procedure a re in fibrillation the results section. documented in this encounter Results (ABNORMAL) Prothrombin Time (10/28/2021 8:30 AM EDT) athologist Signature PT 31.2 (H) EXTERNAL LAB [...] documented in this encounter Visit Diagnoses Diagnosis [place] thrombus Other ill-defined heart disease Permanent atrial fibrillation Atrial fibrillation Thrombus Embolism and thrombosis of unspecified s ite documented in this encounter Care Teams Outdoor Emergency Care Technician Relationship Specialty Start Date End Date None PCP - General 10/05/21 None documented as of this encounter
--- OUTSIDE RECORDS SUMMARY | 2021-11-11 01:52 | XMS_ITS | Encounter Summary ---
:1945 Author Organization [facility] [place] [address] Care Team Providers Name Role Phone None Primary Care Provider Unavailable Encounter Details Date Type Department Care Team Description 10/20/2021 Orders Only [facility] Centralized [place], [place] thr ombus; Anticoagulation [facility] [place] [address] Social History Tobacco Use Types Packs/Day Years [...] Hospital Encounter Surgery Amna Anthony MD [facility] [place] [address] 12/20/2021 Appointment Cardiology Neha Pat APRN [facility] [place] [address] 12/20/2021 Surgery Surgery DisneyAmna spivey MD ECHOCARDIOGRAM ([facility] 2.55) [address] [place] [address] 12/20/2021 Office Visit Cardiology Lance Damon MD [facility] [place] [address] Scheduled Orders Name Type Priority Associated Diagnoses Order S chedule Prothrombin Time Lab Routine [place] thrombus As Needed for 2 Permanent atrial Occurrences starting fibrillation 10/20/2021 unti l 11/20/2021, 1 c ompleted Scheduled Procedures Name Priority Associated Diagnoses Date/Time TRANSESOPHAGEAL ECHOCARDIOGRAM Thrombus 0 12/20/2021 12:30 PM EDT ([facility] 2.55) documented as of this encounter Results (ABNORMAL) Prothrombin Time (10/28/2021 8:30 AM EDT) P athologist Signature PT 31.2 (H) EXTERNAL [...] ite documented in this encounter Care Teams Auto Former Machine Operator Relationship Specialty Start Date End Date None PCP - General 10/05/21 None documented as of this encounter
--- OUTSIDE RECORDS SUMMARY | 2021-11-11 01:52 | XMS_ITS | Encounter Summary ---
:1945 Author Organization [facility] [place] [address] Care Team Providers Name Role Phone Jb Mcneill DO Primary Care Provider Reason for Referral Diagnostic Test (Routine) - Closed Specialty Diagnoses / Procedures Referred By Contact Refer red To Contact Cardiology Diagnoses Atrial fibrillation, unspecified type Lance Damon MD [facility] Non-Inv Card Lab Procedures Transesophageal Echocardiogram (FREDY) [facility] [place] [id number] [place] [address] Phone: Fax: Referral ID Status Reason Start Date Expiration Date Visits V isits Requested Authorized [id number] Closed Specialty 09/14/2021 09/14/2022 1 1 Service Requested Encounter Details Date Type Department Care Team Description 09/13/2021 Orders Only Cardiology at [facility] Lance Damon, Atrial fibrillation, [facility] [place] [phone] [place] [address] Social History Tobacco Use Types Packs/Day Years [...] Amna Anthony MD [facility] [place] [address] 12/20/2021 Appointment Cardiology Neha Pat APRN [facility] [place] [address] 12/20/2021 Surgery Surgery Amna Anthony MD ECHOCARDIOGRAM ([facility] 2.) [facility] [place] [address] 12/20/2021 Office Visit Cardiology Lance Damon MD [facility] [place] [address] Scheduled Procedures Name Priority Associated Diagnoses Date/Time TRANSESOPHAGEAL ECHOCARDIOGRAM Thrombus 0 12/20/2021 12:30 PM EDT ([facility] 2.55) documented as of this encounter Results FREDY W LMTD SPECTRAL DOPPLER COLOR DOPPLER (10/12/2021 1:16 PM EDT) athologist Signature EF 65 [facility] Specimen (Source) Anatomical Collection Method Collection Time Re ceived Time Location / / Volume Laterality 10/12/2021 10:38 AM EDT Narrative [facility] - 10/12/2021 1:25 PM EDT ? Transe sophageal Echocardiogram Report Name: SERA SOLIZ ? Study Date: 10/12/2021 10:38 AMBP: 154/104 mmHg ? Patient Location: OR^ORMN^A HR: 94 : 1945 ? Height: 68 in ? Account: [id number] Age: 76 yrs ? Weight: 205 lb Gender: Male ?BSA: 2.1 m2 Ordering Physician: LANCE DAMON Referring Physician: LANCE DAMON Performed By: Hussain Stoll MD History: Atrial fibrillation Interpreting Fellow: Hussain Stoll. Exam Location: [facility]. Interpretation Summary 1. Directed FREDY to assess [...] to the prior echocardiograph ic report from [facility] on 04/01/21, a left atrial appendage thrombus [...] Echocardiogram Report Name: HEYDISERA Study Date: 10/13/19 22 10:38 AMBP: 154/104 mmHg Patient Location: OR^ORM N^A HR: 94 : 1945 Height: 68 in Account: [id number] Age: 76 yrs Weight: 205 lb Gender: Male BSA: 2.1 m2 Ordering Physician: LANCE DAMON Referring Physician: LANCE DAMON Performed By: Hussain Stoll MD History: Atrial fibrillation Interpreting Fellow: Hussain Stoll. Exam Location: [facility]. Interpretation Summary 1. Directed FREDY to assess [...] to the prior echocardiograph ic report from [facility] on 04/01/21, a left atrial appendage thrombus [...] 5 - 6-14 large Aneurysmal 15-16 diffuse Lance Damon MD ECHO ORDERABLES Performing Organization Address City/State/ZIP Code Phon e Number [facility] documented in this encounter Visit Diagnoses Diagnosis Atrial fibrillation, unspecified type Thrombus Embolism and thrombosis of unspecified s ite documented in this encounter Care Teams Paper Tube Cutter Relationship Specialty Start Date End Date Jb Mcneill DO PCP - General Family Medicine 05/13/19 10/04/[address] [place] [address] documented as of this encounter
--- OUTSIDE RECORDS SUMMARY | 2021-11-11 01:52 | XMS_ITS | Encounter Summary ---
:1945 Author Organization [facility] [place] [address] Care Team Providers Name Role Phone None Primary Care Provider Unavailable Encounter Details Date Type Department Care Team Description 11/04/2021 External Results [facility] [place] [address] Social History Tobacco Use Types Packs/Day [...] 12/20/2021 Hospital Encounter Surgery Amna Anthony MD [facility] [place] [address] 12/20/2021 Appointment Cardiology Neha Pat APRN [facility] [place] [address] 12/20/2021 Surgery Surgery Amna Anthony MD ECHOCARDIOGRAM ([place] [address]55) [facility] [place] [address] 12/20/2021 Office Visit Cardiology Lance Damon [place] [facility] [place] [address] Scheduled Procedures Name Priority Associated Diagnoses Date/Time TRANSESOPHAGEAL ECHOCARDIOGRAM Thrombus 0 12/20/2021 12:30 PM EDT ([facility] 2.55) documented as of this encounter Procedures Procedure Name Priority Date/Time Associated Diagnosis Comme nts EXTERNAL INR Routine 11/04/2021 12:28 PM Results for this RESULTS PANEL EDT procedure are in the results section. documented in this encounter Results (ABNORMAL) External INR Results Panel (11/04/2021 [...] on filedocumented in this encounter Care Teams Avionics Shop Supervisor Relationship Specialty Start Date End Date None PCP - General 10/05/21 None documented as of this encounter
--- OUTSIDE RECORDS SUMMARY | 2021-11-11 01:52 | XMS_ITS | Encounter Summary ---
:1945 Author Organization [facility] [place] [address] Care Team Providers Name Role Phone Jb Mcneill DO Primary Care Provider Encounter Details Date Type Department Care Team Description 05/24/2021 Laboratory Appointment Lab 3L [facility] Atrial fibrillation, [facility] [place] [phone] Social History Tobacco Use Types Packs/Day Years [...] 12/20/2021 Hospital Encounter Surgery Amna Anthony MD [facility] [address] 12/20/2021 Appointment Cardiology Neha Pat APRN [facility] [address] 12/20/2021 Surgery Surgery Amna Anthony MD ECHOCARDIOGRAM ([facility] [address] CARDIOLOGY DEPT [place] [address] 12/20/2021 Office Visit Cardiology Lance Damon MD [facility] [place] [address] Scheduled Procedures Name Priority Associated Diagnoses Date/Time TRANSESOPHAGEAL ECHOCARDIOGRAM Thrombus 0 12/20/2021 12:30 PM EDT ([facility] 2.) documented as of this encounter Procedures Procedure Name Priority Date/Time Associated Comments Diagnosis HEMOGRAM Routine 05/24/2021 8:24 AM Atrial Results f or this EST fibrillation, procedure are in unspecified type the results section. DIFFERENTIAL, Routine 05/24/2021 8:24 AM Atrial Results for this AUTOMATED EST fibrillation, procedure are in unspecified type the results section. HC CBC,PLT & AUTO DIFF Routine 05/24/2021 8:24 AM Atrial EST fibrillation, unspecified type COMPREHENSIVE Routine 05/24/2021 8:24 AM Atrial Results for this METABOLIC PANEL EST fibrillation, procedure a re in (NON-FASTING) unspecified type the result s section. documented in this encounter Results (ABNORMAL) Differential, Automated (05/24/2021 8:24 AM EST) [facility] Method Time Signature Neutrophils % 64.3 % [facility]OR[facility] Neutr Abs (ANC) 5.24 1.70 - [facility] 6.10 [facility] x10(3)/[facility] LABORATORY Lymphocytes % 18.9 % [facility] Lymphocytes Abs 1.5 0.9 - 3.2 [facility] x10(3)/[facility] LABORATORY Monocytes % 12.9 % [facility] Monocyte Abs 1.0 (H) 0.3 - 0.9 [facility] x10(3)/[facility] LABORATORY Eosinophils % 2.7 % [facility] Eosinophils Abs 0.2 0.0 - 0.4 [facility] x10(3)/[facility] LABORATORY Basophils % 0.7 % [facility] Basophils Abs 0.1 0.0 - 0.1 [facility] x10(3)/[facility] LABORATORY Immature Gran % 0.50 % [facility] Comment: Immature granulocytes(IG's)percentage an d absolute count will include metamyelocytes, myelocytes, and promyelo cytes. Blood smears from CBCs yielding IG's will be scanned manually for concor dance. If this scan disagrees with the automated IG or if promyelocytes are not ed, a manual differential will be performed. Rubia Gran Abs 0.04 0.00 - 0.04 x10(3)/[facility] LABORATORY Specimen Anatomical Collection Method Collection Time Receive d Time (Source) Location / / Volume Laterality Blood 05/24/2021 8:24 AM 8:30 EST AM EST Resulting Agency Comment Spec In Lab Lance Damon MD HEMATOLOGY ORDERABLES Performing Organization Address City/State/[place] [address] (ABNORMAL) Hemogram (05/24/2021 8:24 AM EST) Analysis Performed At Patho logist Time Signature WBC 8.2 4.0 - 9.5 [facility] x10(3)/[facility] LAB[facility]ATORY RBC 5.33 4.58 - [facility] x10(6)/[facility] LABORATORY Hemoglobin 16.7 (H) 13.7 - [facility] 16.5 g/dL [facility]OR[facility] Hematocrit 48.7 (H) 40.5 - [facility] DINESH 48.5 % [facility] MCV 91.4 82.9 - [facility]1 [facility] LABORATORY MCH 31.3 27.5 - [facility] 32.1 pg [facility] MCHC 34.3 32.0 - [facility] 35.[facility] g/dL [facility] Platelets 170 145 - 357 [facility] x10(3)/[facility] LABORATORY RDWSD 45.4 (H) 36.0 - [facility] DINESH 45.0 [facility] RDWCV 13.4 11.4 - [facility] DINESH 13.8 % [facility] LABORATORY MPV 11.9 7.6 - 12.9 [facility] LABORATORY nRBC % Auto 0.0 % [facility] nRBC Abs Auto 0.000 0.000 - [facility] 0.000 [facility] x10(3)/[facility] LABORATORY Specimen Anatomical Collection Method Collection Time Receive d Time (Source) Location / / Volume Laterality Blood 05/24/2021 8:24 AM 8:30 EST AM EST Resulting Agency Comment Spec In Lab Lance Damon MD HEMATOLOGY ORDERABLES Performing Organization Address City/State/[place] [address] Comprehensive metabolic panel (non-fasting) (05/24/2021 8:24 AM EST) P athologist Signature Glucose Lvl 84 65 - 199 [facility] mg/dL [facility] Comment: Diabetes: >=200 mg/dL plus symp toms BUN 15 10 - 20 mg/dL [facility] Creatinine 0.91 0.80 - 1.50 mg/dL [facility] LABOR[facility] Sodium 140 135 - 145 mmol/L [facility] Potassium 4.4 3.5 - 5.0 mmol/L [facility] Comment: Please note: ??Patients with WBC >100,00 0 may have falsely elevated Potassium levels. ??For accurate Potassium quantif ication in these patients send serum separator tube (gold top) for subsequent determinations. ??Contact the Clinical Chemistry Laboratory if there are any qu estions. Chloride 105 98 - 107 mmol/L [facility] CO2 25 22 - 31 mmol/L [facility] Anion Gap 10 5 - 15 mmol/L [facility] Calcium 9.0 8.5 - 10.5 mg/dL [facility] Total Protein 6.8 6.1 - 8.0 g/dL [facility]OR[facility] Albumin 4.3 3.2 - 5.2 g/dL [facility] AST 27 0 - 39 unit/L [facility] ALT 31 0 - 55 unit/L [facility] Alk Phos 58 40 - 130 unit/L [facility] Total Bilirubin 0.4 0.2 - 1.3 mg/dL [facility] Estimated GFR 83 >=60 mL/min/1.73 m?? [facility] Comment: This patient? s estimated glomerular filtration rate (eGFR) is between 83 mL/min/1.73 m2 (patients with less muscl e mass per kg body weight) and 96 mL/min/1.73 m2 (patients with more muscl e mass per kg body weight) as determined by the CKD-EPI equation. Asse ssment of eGFR is not appropriate when creatinine concentrations are rapidly ch anging. For clinical decisions where creatinine clearance will affect therapy , a 24-hour urine creatinine clearance may be advised. Assignment of CKD stage 1 - 5 for patien ts with an eGFR near the transition point between stages may be based on cli nical assessment of muscle mass and symptoms in addition to eGFR. Specimen Anatomical Collection Method Collection Time Receive d Time (Source) Location / / Volume Laterality Blood 05/24/2021 8:24 AM 8:30 EST AM EST Resulting Agency Comment Spec In Lab Lance Damon MD CHEMISTRY ORDERABLES Performing Organization Address City/State/[place] [address] documented in this encounter Visit Diagnoses Diagnosis Atrial fibrillation, unspecified type Thrombus Embolism and thrombosis of unspecified s ite documented in this encounter Care Teams Electrician [employer] Relationship Specialty Start Date End Date Jb Mcneill DO PCP - General Family Medicine 05/13/19 10/04/[address] [place] [address] documented as of this encounter
--- OUTSIDE RECORDS SUMMARY | 2021-11-11 01:52 | XMS_ITS | Encounter Summary ---
:1945 Author Organization [facility] [place] [address] Care Team Providers Name Role Phone None Primary Care Provider Unavailable Encounter Details Date Type Department Care Team Description 10/14/2021 Orders Only Cardiology at [facility] Neha Pat APRN [place] thrombus [facility] [place] [address] [place] [address] [phone] (Wo rk) Social History Tobacco Use Types Packs/Day Years [...] 12/20/2021 Hospital Encounter Surgery Amna Anthony MD [facility] [place] [address] 12/20/2021 Appointment Cardiology Neha Pat APRN [facility] [place] [address] 12/20/2021 Surgery Surgery Amna Anthony MD ECHOCARDIOGRAM ([facility] 2.) [facility] [place] [address] 12/20/2021 Office Visit Cardiology Lance Damon MD [facility] [place] [address] Scheduled Orders Name Type Priority Associated Diagnoses Order S chedule Prothrombin Time Lab Routine [place] thrombus Expected: 0 10/17/2021, Expires: 10/15/2022 Scheduled Procedures Name Priority Associated Diagnoses Date/Time TRANSESOPHAGEAL ECHOCARDIOGRAM Thrombus 0 12/20/2021 12:30 PM EDT ([facility] 2.55) documented as of this encounter Visit Diagnoses Diagnosis LA thrombus Other ill-defined heart disease Thrombus Embolism and thrombosis of unspecified s ite documented in this encounter Care Teams Religious Studies Professor Relationship Specialty Start Date End Date None PCP - General 10/05/21 None documented as of this encounter
--- OUTSIDE RECORDS SUMMARY | 2021-11-11 01:52 | XMS_ITS | Encounter Summary ---
:1945 Author Organization [facility] [place] [address] Care Team Providers Name Role Phone None Primary Care Provider Unavailable Encounter Details Date Type Department Care Team Description 10/20/2021 Anti-Coag [facility] Centralized Brandon Dalton Permanent atrial fibrillation; Telephone Visit Anticoagulation Jahaira, [facility] [place] [phone] Social History Tobacco Use Types Packs/Day Years [...] documented as of this encounter Progress Notes Brandon Dalton RPH - 10/20/2021 4:00 AM EDT Images from the original note were not included. 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] Anticoagulation Episode Summary INR check location: Outside Lab Preferred lab: EXTERNAL FACILITY Send INR reminders to: [facility] Comments: [facility] Anticoagulation Care Providers Provider Role Specialty Phone number Neha Pat JERICA Welch Responsible Cardiology [phone] Patient Assessment Service Type: INR Test Result INR Result: Out of Range Clinical Outcomes Negatives: Major bleeding event, Thromboembolic event, Anticoagulation-related hospital admission, Anticoagulation-related ED visit Patient Findings Positives: Upcoming Travel Negatives: Planning or Currently , Recent Fall, Signs/symptoms of thrombosis, Signs/symptoms of bleeding, Laboratory test error suspected, Change in health, Change in alcohol use, Change in activity, Upcoming invasive procedure, Emergency department visit, Upcoming dental procedure, Missed doses, Extra doses, Change in medications, Change in diet/appetite, Hospital admission, Bruising, Othercomplaints Warfarin Therapy Instructions September 2021 Details Sun Sat 1 2 3 4 5 6 7 8 9 10 11 12 13 14 15 16 17 18 19 20 21 22 23 24 25 26 27 28 7.5 mg See details 29 7.5 mg 30 5 mg 31 5 mg Date Details 10/20 This INR check How to take your warfarin dose To take: 5 mg Take 1 of the 5 mg tablets. To take: 7.5 mg Take 1.5 of the 5 mg tablets. Warfarin Therapy Instructions October 2021 Details Sun Sat 1 2 3 4 5 6 7 8 9 10 11 12 13 14 15 16 17 18 19 20 21 22 23 24 25 26 27 28 29 30 31 Date Details No additional details Date of next INR: 10/24/2021 Description 10/20 INR below range. Last 7 day total of 47.5mg. Daily average of 6.78mg. Increase dose to an average of 7.5mg, 52.5mg weekly. This is a 10% increase. Retest Sunday. -Norris will be on vacation in [facility] starting 10/21 and returning 10/31. -Will test INR at [facility] [phone] 10/17 INR 1.2 after 4 days of 5mg. Dosing Norris out until . Norris is expecting to vacation [facility], leaving 10/21 and coming back 10/31. Per cardiology note Assessment: Norris presents to the structural heart team for consideration of watchman procedure in the setting ofatrial fibrillation and difficulty tolerating blood thinner due to lifestyle. 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 Imaging discussed with Dr. Garcia and decision made to transition to coumadin with goal INR 2.5-3. I relayed these recommendations to Mr. Polanco and he will have labs drawn locally at [facility]. ?? Plan 1. Stop Eliquis, Start coumadin 5 mg daily 2. INR check Tuesday 10/17 locally 3. Referral to [facility] anticoagulation clinic 4. Repeat FREDY in 3 months documented in this encounter Plan of Treatment Upcoming Encounters Date Type Specialty Care Team Description 11/11/2021 Anti-Coag Telephone Primary Care Visit 12/20/2021 Hospital Encounter Surgery Amna Anthony MD [facility] [place] [address] 12/20/2021 Appointment Cardiology Neha Pat APRN [facility] [place] [address] 12/20/2021 Surgery Surgery Amna Anthony TRANSGAYE SINGLETON MD ECHOCARDIOGRAM ([facility] 2.55) [facility] [place] [address] 12/20/2021 Office Visit Cardiology Lance Damon MD [facility] [address] Scheduled Procedures Name Priority Associated Diagnoses Date/Time TRANSESOPHAGEAL ECHOCARDIOGRAM Thrombus 0 12/20/2021 12:30 PM EDT ([facility] 2.55) documented as of this encounter Visit Diagnoses Diagnosis Permanent atrial fibrillation Atrial fibrillation [place] thrombus Other ill-defined heart disease Thrombus Embolism and thrombosis of unspecified s ite documented in this encounter Care Teams Ginner Relationship Specialty Start Date End Date None PCP - General 10/05/21 None documented as of this encounter
--- OUTSIDE RECORDS SUMMARY | 2021-11-11 01:52 | XMS_ITS | Encounter Summary ---
:1945 Author Organization [facility] [place] [address] Care Team Providers Name Role Phone None Primary Care Provider Unavailable Reason for Visit Reason Onset Date Comments Medication Refill 10/31/2021 Encounter Details Date Type Department Care Team Description 10/31/2021 Refill [facility] Centralized Brandon Dalton, [place] thr ombus; Anticoagulation [facility] [place] [address] Social History Tobacco Use Types Packs/Day Years [...] MD [facility] [place] [address] 12/20/2021 Appointment Cardiology Neha Pat [place] [facility] [place] [address] 12/20/2021 Surgery Surgery Amna Anthony MD ECHOCARDIOGRAM ([facility] 2.55) CENTER [facility] [place] [address] 12/20/2021 Office Visit Cardiology Lance Damon MD [facility] [place] [address] Scheduled Procedures Name Priority Associated Diagnoses Date/Time TRANSESOPHAGEAL ECHOCARDIOGRAM Thrombus 0 12/20/2021 12:30 PM EDT ([facility] 2.55) documented as of this encounter Visit Diagnoses Diagnosis LA thrombus Other ill-defined heart disease Permanent atrial fibrillation Atrial fibrillation Thrombus Embolism and thrombosis of unspecified s ite documented in this encounter Care Teams Overhead Cleaner Relationship Specialty Start Date End Date None PCP - General 10/05/21 None documented as of this encounter
--- OUTSIDE RECORDS SUMMARY | 2021-11-11 01:52 | XMS_ITS | Encounter Summary ---
:1945 Author Organization [facility] [place] [address] Care Team Providers Name Role Phone None Primary Care Provider Unavailable Reason for Referral Diagnostic Test (Routine) - New Request Specialty Diagnoses / Procedures Referred By Contact Refer red To Contact Cardiology Diagnoses [place] thrombus Neha Pat APRN [facility] Non-Inv Card Lab Procedures Transesophageal Echocardiogram (FREDY) [place] [address] [place] [address] Phone: Fax: Referral ID Status Reason Start Expiration Visits Visits Date Date Requested Authorized [id number] New Request Specialty 10/13/2021 10/13/2022 1 1 Service Requested Consultation (Routine) - Authorized Specialty Diagnoses / Procedures Referred By Contact Refer red To Contact Primary Care Diagnoses Permanent atrial fibrillation [place] [address] [place] [address] Phone: Fax: Referral ID Status Reason Start Date Expiration Visits Visits Date Requested Authorized [id number] Authorized Assume 10/13/2021 10/13/2022 1 1 Subset of Care Encounter Details Date Type Department Care Team Description 10/13/2021 TH Visit Cardiology at [facility] Neha Pat, Permanent atrial fibrillatio n; (TeleHealth) [facility] PRODUCTION SPECIALIST RBBB; [facility] [place] [address] [place] [address] [phone] Social History Tobacco Use Types Packs/Day Years [...] documented as of this encounter Progress Notes Neha Pat, JERICA - 10/13/2021 1:00 PM EDT CARDIOLOGY TELEPHONE VISIT NOTE Norris Polanco 10/13/21 The patient consented to this being a virtual visit. HPI: Norris Polanco is a 76 y.o. male with past medical history of atrial fibrillation (dx 2009, not on OAC), tobacco abuse, neuritis and chronic pruritis who presents via telehealth following FREDY for evaluation of ARJUN thrombus as part of work up for left atrial appendage closure. He has no history of TIA, stroke or significant bleeding; lives a very active lifestyle prompting initial referral by Dr. Desir. At today's visit he denies acute cardiac issues such as chest pain, shortness of breath, lower extremity swelling or syncope. He has not had bleeding issues, TIA or stoke. Unfortunately FREDY yesterday revealed that despite continued eliquis use since May his LA appendage thrombus persists. Brief ROS: No new orthopnea, PND, LE edema. No lightheadedness, dizziness, syncope/pre- syncope. No new CP. Medications: Current Outpatient Medications Medication Sig Note Dispense Refill ??? warfarin (Coumadin) 5 mg Tablet Take 1 tablet by mouth daily. 30 tablet 3 ??? metoprolol succinate XL (Toprol-XL) 50 mg Tablet Sustained Release 24 hr Daily. ??? metoprolol succinate XL (Toprol-XL) 25 mg Tablet Sustained Release 24 hr Take 25 mg by mouth daily. 05/24/2021: Per patient - Unknown Dose - 1/2 tablet DAILY Medications were reviewed with patient. Objective Data: Labs: Lab Results Component Value Date WBC 9.9 (H) 10/12/2021 HGB 16.3 10/12/2021 HCT 47.7 10/12/2021 MCV 90.7 10/12/2021 PLATELET 180 10/12/2021 Recent Labs 10/12/21 0929 NA 137 K 4.4 CL 105 CO2 25 BUN 14 CREATININE 1.03 GLUCOSE 100 FREDY 10/12/21 1. Directed FREDY to assess for thrombus in the left atrium or left atrial appendage. 2. There is an independently mobile mass present in the left atrial appendage measuring roughly 0.92 cm x 0.66 cm that is consistent with a likely thrombus. There is no evidence of thrombus in the left atrium. 3. The left ventricle is normal in size and function. The left ventricular ejection fraction is estimated to be 65%. There are no regional wall motion abnormalities. 4. The right ventricle is normal in size and function. The pulmonary artery systolic pressure could not be estimated. 5. There are no hemodynamically significant valvular abnormalities. 6. Compared to the prior echocardiographic report from [facility] on 04/01/21, a left atrial appendage thrombus is able to be visualized on this study. Assessment: Pleasant 76 y.o. male who presents to the structural heart team for consideration of watchman procedure in the setting of atrial fibrillation and difficulty tolerating blood thinner due to lifestyle. 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 Imaging discussed with Dr. Garcia and decision made to transition to coumadin with goal INR 2.5-3. I relayed these recommendations to Mr. Polanco and he will have labs drawn locally [facility] Referral placed. We will bring him back in 3 months for repeat imagingat that time. Plan 1. Stop Eliquis, Start coumadin 5 mg daily 2. INR check Tuesday 10/17 locally 3. Referral to [facility] anticoagulation clinic 4. Repeat FREDY in 3 months F/U 3 months with FREDY Neha Pat APRN documented in this encounter Miscellaneous Notes Addendum Note - Neha Pat APRN - 10/13/2021 1:00 PM EDT Addended by: NEHA PAT on: 10/13/2021 04:19 PM Modules accepted: Orders documented in this encounter Plan of Treatment Upcoming Encounters Date Type Specialty Care Team Description 11/11/2021 Anti-Coag Telephone Primary Care Visit 12/20/2021 Hospital Encounter Surgery Amna Anthony MD [facility] [place] [address] 12/20/2021 Appointment Cardiology Neha Pat [place] [facility] [place] [address] 12/20/2021 Surgery Surgery Amna Anthony MD ECHOCARDIOGRAM ([facility] 2.ChartITright) CENTER [facility] [place] [address] 12/20/2021 Office Visit Cardiology Lance Damon MD [facility] [place] [address] Scheduled Orders Name Type Priority Associated Order Schedule Diagnoses Prothrombin Time Lab Routine Permanent atrial Expecte d: fibrillation 10/17/2021, [place] thrombus Expires: 10/14/2022 Transesophageal Echocardiography Routine [place] thrombus Expected : Echocardiogram (FREDY) 022 Scheduled Procedures Name Priority Associated Diagnoses Date/Time TRANSESOPHAGEAL ECHOCARDIOGRAM Thrombus 0 12/20/2021 12:30 PM EDT ([facility] 2.55) Scheduled Referrals Name Type Priority Associated Order Schedule Diagnoses Referral for Outpatient Routine Permanent atrial Ordered: Anticoagulation Referral fibrillation 10/13/2021 Monitoring [place] thrombus documented as of this encounter Visit Diagnoses Diagnosis Permanent atrial fibrillation Atrial fibrillation RBBB Right bundle branch block LA thrombus Other ill-defined heart disease Thrombus Embolism and thrombosis of unspecified s ite documented in this encounter Care Teams Laborer [employer] Relationship Specialty Start Date End Date None PCP - General 10/05/21 None documented as of this encounter
--- OUTSIDE RECORDS SUMMARY | 2021-11-11 01:52 | XMS_ITS | Encounter Summary ---
:1945 Author Organization [facility] [address] Care Team Providers Name Role Phone Jb Mcneill DO Primary Care Provider Reason for Referral Diagnostic Test (Routine) - Closed Specialty Diagnoses / Procedures Referred By Contact Refer red To Contact Radiology Diagnoses Atrial fibrillation, unspecified type Lance Damon MD [facility] Rad Ct Scan Procedures CT Cardiac for Morphology & Function [facility] [place] [address] [place] [address] Referral ID Status Reason Start Date Expiration Date Visits V isits Requested Authorized [id number] Closed Specialty 05/10/2021 08/08/2021 1 1 Service Requested Encounter Details Date Type Department Care Team Description 04/05/2021 Orders Only Cardiology at [facility] Lance Damon, Atrial fibrillation, [facility] [place] [address] [place], [place] [address] Social History Tobacco Use Types Packs/Day Years Used Date Never Assessed Sex Assigned at Date Recorded Not on file documented as of this encounter Plan of Treatment Upcoming Encounters Date Type Specialty Care Team Description 11/11/2021 Anti-Coag Telephone Primary Care Visit 12/20/2021 Hospital Encounter Surgery Amna Anthony MD [facility] [place] [address] 12/20/2021 Appointment Cardiology Neha Pat APRN [facility] [place] [address] 12/20/2021 Surgery Surgery Amna Anthony MD ECHOCARDIOGRAM ([facility] 2.) [facility] [place] [address] 12/20/2021 Office Visit Cardiology Lance Damon MD [facility] [place] [address] Scheduled Procedures Name Priority Associated Diagnoses Date/Time TRANSESOPHAGEAL ECHOCARDIOGRAM Thrombus 0 12/20/2021 12:30 PM EDT ([facility] 2.) documented as of this encounter Results CT Cardiac for Morphology & Function (05/24/2021 10:15 AM EST) Anatomical Region Laterality Modality Chest, Cardiac Computed Tomography Specimen (Source) Anatomical Collection Method Collection Time Re ceived Time Location / / Volume Laterality 05/24/2021 10:29 AM EST Impressions 05/24/2021 1:12 PM EST 1. ??Left atrial appendage anatomy, as above. 2. ??Filling defect in left atrial appen dage is present which is suggestive of a left atrial appendage thrombus. Thank you for letting us participate in the care of this patient. ??If you are a health care provider and have any questi ons regarding this report, please contact the number below. ??For patients who have questions please contact the health attending ambulatory care that requested your imaging first. ? Electronically signed by: Michael Chandler MD, [facility] ([phone]), at 05/24/2021 1:12 PM Narrative 05/24/2021 1:[address] for morphology and function with contrast CLINICAL HISTORY: Watchman screening, le ft atrial appendage assessment, PAF TECHNIQUE: 3.0 mm thick axial contiguous sections were obtained through the chest via helical acquisition after intr avenous contrast administration. Two imaging phases were obtained. Craniocaud al coverage and [id number] were restricted to the heart. Post-processing was performed on an independent computer workstation, including includin g three-dimensional reconstruction. Contrast: 118 cc Omnipaque 350. COMPARISON: None. FINDINGS: Left atrial appendage: Diameter: 19.5 x 33.9 mm Length: 64.7mm Accessory appendage or diverticulum: Non e. Left atrial or atrial appendage filling defects:Present. Accessory pulmonary venous drainage: Non e. Other cardiovascular structures: Filling defect in left atrial appendage is present which is suggestive of a thrombu s. Bi-atrial enlargement is present. Interventricular and inter-atrial septum are intact. ??Mild aortic valve calcification is present. Proximal pulmo nary arteries are without thrombus. Pulmonary parenchyma, airways, and pleur a: Limited field of view No significant findings. Procedure Note Michael Chandler MD - 05/24/2021Formatt ing of this note might be different from the original. Cardiac CT for morphology and function w ith contrast CLINICAL HISTORY: Watchman screening, le ft atrial appendage assessment, PAF TECHNIQUE: 3.0 mm thick axial contiguous sections were obtained through the chest via helical acquisition after intr avenous contrast administration. Two imaging phases were obtained. Craniocaud al coverage and [id number] were restricted to the heart. Post-processing was performed on an independent computer workstation, including includin g three-dimensional reconstruction. Contrast: 118 cc Omnipaque 350. COMPARISON: None. FINDINGS: Left atrial appendage: Diameter: 19.5 x 33.9 mm Length: 64.7mm Accessory appendage or diverticulum: Non e. Left atrial or atrial appendage filling defects:Present. Accessory pulmonary venous drainage: Non e. Other cardiovascular structures: Filling defect in left atrial appendage is present which is suggestive of a thrombu s. Bi-atrial enlargement is present. Interventricular and inter-atrial septum are intact. Mild aortic valve calcification is present. Proximal pulmo nary arteries are without thrombus. Pulmonary parenchyma, airways, and pleur a: Limited field of view No significant findings. IMPRESSION 1. Left atrial appendage anatomy, as abo ve. 2. Filling defect in left atrial appenda ge is present which is suggestive of a left atrial appendage thrombus. Thank you for letting us participate in the care of this patient. If you are a health care provider and have any questi ons regarding this report, please contact the number below. For patients w ho have questions please contact the health attending ambulatory care that requested your imaging first. Electronically signed by: Michael Chandler MD, [facility] ([phone]), at 05/24/2021 1:12 PM Lance Damon MD IMG CT ORDERABLES Comprehensive metabolic panel (non-fasting) (05/24/2021 8:24 AM EST) P athologist Signature Glucose Lvl 84 65 - 199 [facility] mg/dL [facility] Comment: Diabetes: >=200 mg/dL plus symp toms BUN 15 10 - 20 mg/dL [facility] Creatinine 0.91 0.80 - 1.50 mg/dL [facility] Sodium 140 135 - 145 mmol/L [facility] Potassium 4.4 3.5 - 5.0 mmol/L [facility] Comment: Please note: ??Patients with WBC [...] mmol/L [facility] Anion Gap 10 5 - 15 mmol/L [facility] Calcium 9.0 8.5 - 10.5 mg/dL [facility] Total Protein 6.8 6.1 - 8.0 g/dL [facility] Albumin 4.3 3.2 - 5.2 g/dL [facility] AST 27 0 - 39 unit/L [facility] ALT 31 0 - 55 unit/L [facility] Alk Phos 58 40 - 130 unit/L [facility] Total Bilirubin 0.4 0.2 - 1.3 mg/dL [facility] Estimated GFR 83 >=60 mL/min/1.73 m?? [facility] Comment: This patient? s estimated glomerular [...] Organization Address City/State/ZIP [place] [address] documented in this encounter Visit Diagnoses Diagnosis Atrial fibrillation, unspecified type Atrial fibrillation, unspecified type Thrombus Embolism and thrombosis of unspecified s ite documented in this encounter Care Teams Automotive Electrician Helper Relationship Specialty Start Date End Date Jb Mcneill DO PCP - General Family Medicine 05/13/19 10/04/[address] [place] [address] documented as of this encounter
--- OUTSIDE RECORDS SUMMARY | 2021-11-11 01:52 | XMS_ITS | Encounter Summary ---
:1945 Author Organization [facility] [place] [address] Care Team Providers Name Role Phone None Primary Care Provider Unavailable Reason for Visit Reason Onset Date Comments Medication Refill 10/31/2021 Encounter Details Date Type Department Care Team Description 10/31/2021 Refill Cardiology at [facility] Neha Pat APRN Medication Refill [facility] jaleel [facility] [place] [address] [place] [address] [phone] (Wo rk) Social History Tobacco Use Types [...] MD [facility] [place] [address] 12/20/2021 Appointment Cardiology Neha Pat APRN [facility] [place] [address] 12/20/2021 Surgery Surgery Amna Anthony MD ECHOCARDIOGRAM ([facility] 2.55) CENTER [facility] [place] [address] 12/20/2021 Office Visit Cardiology Lance Damon MD [facility] [place] [address] Scheduled Procedures Name Priority Associated Diagnoses Date/Time TRANSESOPHAGEAL ECHOCARDIOGRAM Thrombus 0 12/20/2021 12:30 PM EDT ([facility] 2.55) documented as of this encounter Visit Diagnoses Not on filedocumented in this encounter Care Teams Visual Coordinator Relationship Specialty Start Date End Date None PCP - General 10/05/21 None documented as of this encounter
--- OUTSIDE RECORDS SUMMARY | 2021-11-11 01:52 | XMS_ITS | Encounter Summary ---
:1945 [place] [address] Care Team Providers Name Role Phone None Primary Care Provider Unavailable Encounter Details Date Type Department Care Team Description 10/17/2021 External Results [facility] Provider, His When You Wish Information Juliet brumfield MD Services None [address] [place] [address] Social History Tobacco Use Types Packs/Day Years [...] Amna Anthony MD [facility] [place] [address] 12/20/2021 Appointment Cardiology Neha Pat [place] [facility] [place] [address] 12/20/2021 Surgery Surgery mAna Anthony MD ECHOCARDIOGRAM ([facility] 2.) [address] CARDIOLOGY DEPT [place], [place] [id number] 12/20/2021 Office Visit Cardiology Lance Damon [place] [facility] [place] [address] Scheduled Procedures Name Priority Associated Diagnoses Date/Time TRANSESOPHAGEAL ECHOCARDIOGRAM Thrombus 0 12/20/2021 12:30 PM EDT ([facility] 2.55) documented as of this encounter Procedures Procedure Name Priority Date/Time Associated Diagnosis Comme nts PROTHROMBIN TIME Routine 10/17/2021 1:35 PM Resul ts for this EDT procedure are i n the results section. documented in this encounter Results (ABNORMAL) Prothrombin Time (10/17/2021 1:35 PM EDT) P athologist Signature PT 12.1 (H) EXTERNAL LAB INR 1.20 (H) EXTERNAL LAB Specimen (Source) Anatomical Collection Method Collection Time Re ceived Time Location / / Volume Laterality Blood 10/17/2021 1:35 PM EDT Narrative This result has an attachment that is no t available. His Parlier Provider HEMATOLOGY ORDERABLES Performing Organization Address City/State/ZIP Code Phon e Number EXTERNAL FACILITY EXTERNAL LAB documented in this encounter Visit Diagnoses Not on filedocumented in this encounter Care Teams Speaker Mounter Relationship Specialty Start Date End Date None PCP - General 10/05/21 None documented as of this encounter
--- OUTSIDE RECORDS SUMMARY | 2021-11-11 01:52 | XMS_ITS | Encounter Summary ---
:1945 Author Organization [facility] [place] [address] Care Team Providers Name Role Phone None Primary Care Provider Unavailable Encounter Details Date Type Department Care Team Description 10/28/2021 Anti-Coag [facility] Centralized Brandon Dalton Permanent atrial fibrillation; Telephone Visit Anticoagulation Jahaira, [facility] [place] [phone] Social History Tobacco Use Types Packs/Day Years [...] encounter Progress Notes Brandon Dalton RPH - 10/28/2021 4:00 AM EDT Images from the original note were not included. Anticoagulation Therapy Note Anticoagulation Summary As of 10/28/2021 INR goal: 2.5-3.0 TTR: -- INR used for dosin.30 (10/28/2021) Warfarin maintenance plan: 10 mg (5 mg x 2) every Mon; 7.5 mg (5 mg x 1.5) all other days Weekly warfarin total: 55 mg Plan last modified: Brandon Dalton RPH (10/28/2021) Next INR check: 11/04/2021 Priority: 1 Week Target end date: Indefinite Indications Permanent atrial fibrillation [I48.21] [place] thrombus [I51.3] Anticoagulation Episode Summary INR check location: Outside Lab Preferred lab: EXTERNAL FACILITY Send INR reminders to: [facility] Comments: [facility] Anticoagulation Care Providers Provider Role Specialty Phone number Neha Pat JERICA Welch Responsible Cardiology [phone] Patient Assessment Service Type: INR Test Result INR Result: Out of Range Clinical Outcomes Negatives: Major bleeding event, Thromboembolic event, Anticoagulation-related hospital admission, Anticoagulation-related ED visit Patient Findings Negatives: Upcoming Travel, Planning or Currently , Recent Fall, Signs/symptoms of thrombosis, Signs/symptoms of bleeding, Laboratory test error suspected, Change in health, Change in alcohol use, Change in activity, Upcoming invasive procedure, Emergency department visit, Upcoming dental procedure, Missed doses, Extra doses, Change in medications, Change in diet/appetite, Hospital admission, Bruising, Other complaints Warfarin Therapy Instructions October 2021 Details Sun Sun Sat 1 2 3 4 5 7.5 mg See details 6 7.5 mg 7 7.5 mg 8 10 mg 9 7.5 mg 10 7.5 mg 11 7.5 mg 12 7.5 mg 13 14 15 16 17 18 19 20 21 22 23 24 25 26 27 28 29 30 31 Date Details 10/28 This INR check Date of next INR: 11/04/2021 How to take your warfarin dose To take: 7.5 mg Take 1.5 of the 5 mg tablets. To take: 10 mg Take 2 of the 5 mg tablets. Description 10/28 INR slightly above range. Last 7 day total of 60mg. Decrease dose to last 7 day total of 55mg (8%) and retest next week. 10/24 INR below range. Last 7 day total of 52.5mg. Increase dose 14% to last 7 day total of 60mg with retest Sunday. 10/20 INR below range. Last 7 day total of 47.5mg. Daily average of 6.78mg. Increase dose to an average of 7.5mg, 52.5mg weekly. This is a 10% increase. Retest Sunday. -Norris will be on vacation in [facility] starting 10/21 and returning 10/31. -Will test INR at [phone] 10/17 INR 1.2 after 4 days of 5mg. Dosing Norris out until . Norris is expecting to vacation down[place] [facility], leaving 10/21 and coming back 10/31. Per [...] he will have labs drawn locally at [facility]. ?? Plan 1. Stop Eliquis, Start coumadin 5 mg daily 2. INR check Tuesday 10/17 locally 3. Referral to [facility] antico[facility] 4. Repeat FREDY in 3 months documented in this encounter Plan of Treatment Upcoming Encounters Date Type Specialty Care Team Description 11/11/2021 Anti-Coag Telephone Primary Care Visit 12/20/2021 Hospital Encounter Surgery Amna Anthony MD [facility] [address] 12/20/2021 Appointment Cardiology Neha Pat APRN [facility] [place] [address] 12/20/2021 Surgery Surgery Amna Anthony TRANSGAYE SINGLETON MD ECHOCARDIOGRAM ([facility] 2.55) CENTER [facility] [place] [address] 12/20/2021 Office Visit Cardiology Lance Damon MD [facility] [place] [address] Scheduled Procedures Name Priority Associated Diagnoses Date/Time TRANSESOPHAGEAL ECHOCARDIOGRAM Thrombus 0 12/20/2021 12:30 PM EDT ([facility] 2.55) documented as of this encounter Visit Diagnoses Diagnosis Permanent atrial fibrillation Atrial fibrillation [place] thrombus Other ill-defined heart disease Thrombus Embolism and thrombosis of unspecified s ite documented in this encounter Care Teams Salesperson Neckties Relationship Specialty Start Date End Date None PCP - General 10/05/21 None documented as of this encounter
--- OUTSIDE RECORDS SUMMARY | 2021-11-11 01:52 | XMS_ITS | Encounter Summary ---
:1945 Author Organization [facility] [place] [address] Care Team Providers Name Role Phone None Primary Care Provider Unavailable Reason for Visit Auth/Cert Specialty Diagnoses / Procedures Referred By Contact Refer red To Contact Diagnoses Chronic atrial fibrillation, unspecified Thrombus [I82.90] Chronic a-fib [I48.20] Watchman w/u ? thrombus Ronak Benson MD [facility] Procedures PRG FREDY REAL TIME IMG 2D W PRB IMG ACQUIS I&R TRANSESOPHAGEAL ECHOCARDIOGRAM (WRVU 2.55) [facility] [place] [address] Referral ID Status Reason Start Date Expiration Date Visits Requ ested Visits Authorized [id number] 1 1 Encounter Details Date Type Department Care Team Description 10/12/2021 Surgery Main Operating Room Ronak Benson TR ANSESOPHAGEAL Susan Trnocoso MD ECHOCARDIOGRAM (WRVU 2.55) [facility] [address] [place] [address] [place] [address] [phone] Social History Tobacco Use Types Packs/Day Years [...] Allergies reviewed. Previous echocardiogram dated 02/02/21 reviewed. [facility] echo report. The patient is appropriate for [...] in the printed consent form. Hussain Stoll Assistant Community Manager, [id number] documented in this encounter Miscellaneous Notes Op Note - Ronak Benson MD - 10/12/2021 10:46 AM EDT [facility] Operative Note Patient Name: Sera Soliz : [id number] MR#: [id number] Case Date: 10/12/2021 Surgeon: Surgeon(s) and Role: [...] Anthony MD [facility] [address] 12/20/2021 Appointment Cardiology Neha Pat APRN [facility] [place] [address] 12/20/2021 Surgery Surgery Amna Anthony MD ECHOCARDIOGRAM ([facility] 2.55) [facility] [place] [address] 12/20/2021 Office Visit Cardiology Alexei Damon MD [facility] [place] [address] Scheduled Procedures Name Priority Associated Diagnoses Date/Time TRANSESOPHAGEAL ECHOCARDIOGRAM Thrombus 0 12/20/2021 12:30 PM EDT (WRVU 2.55) documented as of this encounter Procedures Procedure Name Priority Date/Time Associated Comments Diagnosis FREDY W LMTD SPECTRAL Routine 10/12/2021 1:16 Atrial Resul ts for this DOPPLER COLOR DOPPLER PM EDT fibrillation, proce dure are in unspecified type the results section. TRANSESOPHAGEAL 10/12/2021 10:36 Thrombus ECHOCARDIOGRAM ([facility] AM EDT Chronic a-fib 2.55) HEMOGRAM Routine [...] 1945 ? Height: 68 in ? Account: [id number] Age: 76 yrs ? Weight: 205 lb Gender: Male ?BSA: 2.1 m2 Ordering Physician: ALEXEI DAMON Referring Physician: ALEXEI DAMON Performed By: Hussain Stoll MD History: Atrial fibrillation Interpreting Fellow: Hussain Stoll. Exam Location: [facility]. Interpretation Summary 1. Directed FREDY to assess [...] to the prior echocardiograph ic report from [facility] on 04/01/21, a left atrial appendage [...] 10/13/19 10:38 AMBP: 154/104 mmHg Patient Location: [facility] N^A HR: 94 : 1945 Height: 68 in Account: [id number] Age: 76 yrs Weight: 205 lb Gender: Male BSA: 2.1 m2 Ordering Physician: ALEXEI DAMON Referring Physician: ALEXEI DAMON Performed By: Hussain Stoll MD History: Atrial fibrillation Interpreting Fellow: Hussain Stoll. Exam Location: [facility]. Interpretation Summary 1. Directed FREDY to assess [...] to the prior echocardiograph ic report from [facility] on 04/01/21, a left atrial appendage [...] (ABNORMAL) Differential, Automated (10/12/2021 9:29 AM EDT) [facility] gist Method Time Signature Neutrophils % 72.5 % [facility] LABORATORY Neutr Abs (ANC) 7.19 (H) 1.70 - [facility] 6.10 [facility] x10(3)/[facility] LABORATORY Lymphocytes % 14.9 % [facility] Lymphocytes Abs 1.5 0.9 - 3.2 [facility] x10(3)/[facility] LABORATORY Monocytes % 9.4 % [facility] Monocyte Abs 0.9 0.3 - 0.9 [facility] x10(3)/[facility] LABORATORY Eosinophils % 2.1 % [facility] Eosinophils Abs 0.2 0.0 - 0.4 [facility] x10(3)/[facility] LABORATORY Basophils % 0.6 % [facility] Basophils Abs 0.1 0.0 - 0.1 [facility] x10(3)/[facility] LABORATORY Immature Gran % 0.50 % [facility] Comment: Immature granulocytes(IG's)percentage an d absolute count will include metamyelocytes, myelocytes, and promyelo cytes. Blood smears from CBCs yielding IG's will be scanned manually for concor dance. If this scan disagrees with the automated IG or if promyelocytes are not ed, a manual differential will be performed. Rubia Gran Abs 0.05 (H) 0.00 - 0.04 x10(3)/[facility] LABORATORY Specimen Anatomical Collection Method Collection Time Receive d Time (Source) Location / / Volume Laterality Blood 10/12/2021 9:29 AM 9:49 EDT AM EDT Resulting Agency Comment Spec In Lab Neha L Adilia PIZANO HEMATOLOGY ORDERABLES Performing Organization Address City/State/[place] [address] (ABNORMAL) Hemogram (10/12/2021 9:29 AM EDT) Analysis Performed At Patho logist Time Signature WBC 9.9 (H) 4.0 - 9.5 [facility] x10(3)/[facility] LABORATORY RBC 5.26 4.58 - [facility] 5.54 [facility] x10(6)/[employer] [facility] LABORATORY Hemoglobin 16.3 13.7 - [facility] 16.5 g/dL [facility] LABORATORY Hematocrit 47.7 40.5 - [facility] 48.5 % [facility] LABORATORY MCV 90.7 82.9 - [facility] 93.1 [facility] LABORATORY MCH 31.0 27.5 - [facility] 32.1 pg [facility] LABORATORY MCHC 34.2 32.0 - [facility] 35.7 g/dL [facility] LABORATORY Platelets 180 145 - 357 [facility] x10(3)/[facility] LABORATORY RDWSD 45.1 (H) 36.0 - [facility] 45.0 [facility] LABORATORY RDWCV 13.3 11.4 - [facility] 13.8 % [facility] LABORATORY MPV 12.1 7.6 - 12.9 [facility] LABORATORY nRBC % Auto 0.0 % [facility] LABORATORY nRBC Abs Auto 0.000 0.000 - [facility] 0.000 [facility] x10(3)/[employer] LABORATORY Specimen Anatomical Collection Method Collection Time Receive d Time (Source) Location / / Volume Laterality Blood 10/12/2021 9:29 AM 9:49 EDT AM EDT Resulting Agency Comment Spec In Lab Neha Welch Adilia JERICA HEMATOLOGY ORDERABLES Performing Organization Address City/State/[place] [address] Comprehensive metabolic panel (non-fasting) (10/12/2021 9:29 AM EDT) P athologist Signature Glucose Lvl 100 65 - 199 [facility] mg/dL [facility] LABORATORY Comment: Diabetes: >=200 mg/dL plus symp toms BUN 14 10 - 20 mg/dL [facility] LABORATORY Creatinine 1.03 0.80 - 1.50 mg/dL [facility] LABORATORY Sodium 137 135 - 145 mmol/L [facility] LABORATORY Potassium 4.4 3.5 - 5.0 mmol/L [facility] LABORATORY Comment: Please note: ??Patients with WBC >100,00 0 may have falsely elevated Potassium levels. ??For accurate Potassium quantif ication in these patients send serum separator tube (gold top) for subsequent determinations. ??Contact the Clinical Chemistry Laboratory if there are any qu estions. Chloride 105 98 - 107 mmol/L [facility] LABOR[facility]ORY CO2 25 22 - 31 mmol/L [facility] LABOR[facility]ORY Anion Gap 7 5 - 15 mmol/L [facility] LABORATORY Calcium 9.0 8.5 - 10.5 mg/dL [facility] LABORATORY Total Protein 6.8 6.1 - 8.0 g/dL [facility] LABORATORY Albumin 4.2 3.2 - 5.2 g/dL [facility] LABORATORY AST 21 0 - 39 unit/L [facility] LABORATORY ALT 17 0 - 55 unit/L [facility] LABOR[facility]ORY Alk Phos 58 40 - 130 unit/L [facility]ORATORY Total Bilirubin 0.7 0.2 - 1.3 mg/dL [facility] LABORATORY Estimated GFR 76 >=60 mL/min/1.73 m?? [facility] Comment: This patient's estimated GFR was [...] Organization Address City/State/ZIP Code Phon e Number [place] [phone] documented in this encounter Visit Diagnoses Diagnosis Aortic valve stenosis, etiology of cardi ac valve disease unspecified Atrial fibrillation, unspecified type Thrombus Embolism and thrombosis of unspecified s ite Chronic a-fib Atrial fibrillation Thrombus Embolism and thrombosis of [...] Procedure), Routine lidocaine (Xylocaine) 5 % ointment Given 10/12/2021 10:42 AM EDT 1 inch ONCE PRN, Starting on Sun10/12/21 at 1042, Until Sun10/12/21 at 1437, Intra-Operative (Intra-Procedure) documented in this encounter Active and Recently [...] (Intra-Procedure) documented in this encounter Care Teams Scourer Relationship Specialty Start Date End Date None PCP - General 10/05/21 None documented as of this encounter
--- OUTSIDE RECORDS SUMMARY | 2021-11-11 01:52 | XMS_ITS | Encounter Summary ---
:1945 Author Organization [facility] [place] [address] Care Team Providers Name Role Phone Jb Mcneill DO Primary Care Provider Reason for Visit Diagnostic Test (Routine) - Pending Review Specialty Diagnoses / Procedures Referred By Contact Refer red To Contact Radiology Diagnoses Permanent atrial fibrillation Neha Pat, JERICA [facility] Rad Ct Scan Procedures CT Cardiac for Morphology & Function [facility] [place] [address] [facility] [place] [address] Phone: Referral ID Status Reason Start Expiration Visits Visits Date Date Requested Authorized [id number] Pending Specialty 09/07/2021 12/06/2021 1 1 Review Service Requested Encounter Details Date Type Department Care Team Description 09/20/[address] Scan at [facility] Neha Pat, Canceled (D- [facility] JERICA SCHEDULE CHANGE ) [facility] [address] [place], [place] [phone] [facility] Social History Tobacco Use Types Packs/Day Years [...] on file documented as of this encounter Medications at Time of Discharge [...] times daily. documented as of this encounter Plan of Treatment Upcoming Encounters Date Type Specialty Care Team Description 11/11/2021 Anti-Coag Telephone Primary Care Visit 12/20/2021 Hospital Encounter Surgery Amna Anthony MD [facility] [place] [address] 12/20/2021 Appointment Cardiology Neha Pat APRN [facility] [place] [address] 12/20/2021 Surgery Surgery Amna Anthony MD ECHOCARDIOGRAM ([facility] 2.55) [facility] [place] [address] 12/20/2021 Office Visit Cardiology Lance Damon MD [facility] [place] [address] Scheduled Procedures Name Priority Associated Diagnoses Date/Time TRANSESOPHAGEAL ECHOCARDIOGRAM Thrombus 0 12/20/2021 12:30 PM EDT ([facility] 2.55) documented as of this encounter Visit Diagnoses Not on filedocumented in this encounter Care Teams Coater Smoking Pipe Relationship Specialty Start Date End Date Jb Mcneill DO PCP - General Family Medicine 05/13/19 10/04/[address] [place] [address] documented as of this encounter
--- OUTSIDE RECORDS SUMMARY | 2021-11-11 01:52 | XMS_ITS | Encounter Summary ---
:1945 [place] [address] Care Team Providers Name Role Phone None Primary Care Provider Unavailable Encounter Details Date Type Department Care Team Description 10/20/2021 External Results [facility] Provider, His Per manent atrial fibrillation; [facility] MD [place] thrombus Information Services None [address] [place] [address] Social History Tobacco Use Types Packs/Day Years [...] 12/20/2021 Hospital Encounter Surgery Amna Anthony MD [facility] [place] [address] 12/20/2021 Appointment Cardiology Neha Pat APRN [facility] [place] [address] 12/20/2021 Surgery Surgery Amna Anthony MD ECHOCARDIOGRAM ([facility] 2.55) [address] [address] 12/20/2021 Office Visit Cardiology Lance Damon MD [facility] [address] Scheduled Procedures Name Priority Associated Diagnoses Date/Time TRANSESOPHAGEAL ECHOCARDIOGRAM Thrombus 0 12/20/2021 12:30 PM EDT ([facility] 2.55) documented as of this encounter Procedures Procedure Name Priority Date/Time Associated Diagnosis Comme nts PROTHROMBIN TIME Routine 10/20/2021 9:09 AM Permanent atrial R esults for this EDT fibrillation procedure are in [place] thrombus the results section. documented in this encounter Results (ABNORMAL) Prothrombin Time (10/20/2021 [...] ite documented in this encounter Care Teams Obgyn Nurse Relationship Specialty Start Date End Date None PCP - General 10/05/21 None documented as of this encounter
--- OUTSIDE RECORDS SUMMARY | 2021-11-11 01:52 | XMS_ITS | Encounter Summary ---
:1945 Author Organization [facility] [place] [address] Care Team Providers Name Role Phone Jb Mcneill DO Primary Care Provider Encounter Details Date Type Department Care Team Description 06/06/2021 Orders Only Cardiology at [facility] Lance Damon, Aortic valve stenosis, [facility] etiology of cardiac Drive [facility] [place] [address] unspecified [phone] [place], [place] [address] Social History Tobacco Use Types [...] Anthony MD [facility] [place] [address] 12/20/2021 Appointment Cardiology Neha Pat, BARBER OR BEAUTY SHOP MANAGER [facility] [place] [address] 12/20/2021 Surgery Surgery Amna Anthony MD ECHOCARDIOGRAM ([facility] 2.) [facility] [place] [address] 12/20/2021 Office Visit Cardiology Lance Damon MD [facility] [place] [address] Scheduled Procedures Name Priority Associated Diagnoses Date/Time TRANSESOPHAGEAL ECHOCARDIOGRAM Thrombus 0 12/20/2021 12:30 PM EDT ([facility] 2.) documented as of this encounter Results Comprehensive metabolic panel (non-fasting) (10/12/2021 9:29 AM EDT) athologist Signature Glucose Lvl 100 65 - 199 [facility] mg/dL [facility] LABORATORY Comment: Diabetes: >=200 mg/dL plus symp toms BUN 14 10 - 20 mg/dL [facility] LABORATORY Creatinine 1.03 0.80 - 1.50 mg/dL [facility] LABOR[facility]ORY Sodium 137 135 - 145 mmol/L [facility] Potassium 4.4 3.5 - 5.0 mmol/L [facility] Comment: Please note: ??Patients [...] Anion Gap 7 5 - 15 mmol/L [facility] LABORATORY Calcium 9.0 8.5 - 10.5 mg/dL [facility] LABOR[facility] Total Protein 6.8 6.1 - 8.0 g/dL [facility] LABOR[facility] Albumin 4.2 3.2 - 5.2 g/dL [facility] LABOR[facility]ORY AST 21 0 - 39 unit/L [facility] LAB[facility] ALT 17 0 - 55 unit/L [facility] LAB[facility] Alk Phos 58 40 - 130 unit/L [facility] Total Bilirubin 0.7 0.2 - 1.3 mg/dL [facility] LABORATORY Estimated GFR 76 >=60 mL/min/1.73 m?? [...] Organization Address City/State/[place] [address] documented in this encounter Visit Diagnoses Diagnosis Aortic valve stenosis, etiology of cardi ac valve disease unspecified Thrombus Embolism and thrombosis of unspecified s ite documented in this encounter Care Teams Manager Transfusion Relationship Specialty Start Date End Date Jb Mcneill DO PCP - General Family Medicine 05/13/19 10/04/[address] [place] [address] documented as of this encounter
--- OUTSIDE RECORDS SUMMARY | 2021-11-11 01:52 | XMS_ITS | Encounter Summary ---
:1945 Author Organization [facility] [place] [address] Care Team Providers Name Role Phone Jb Mcneill DO Primary Care Provider Reason for Referral Diagnostic Test (Routine) - Closed Specialty Diagnoses / Procedures Referred By Contact Refer red To Contact Radiology Diagnoses Atrial fibrillation, unspecified type Lance Damon MD [facility] Rad Ct Scan Procedures CT Cardiac for Morphology & Function [place], [place] [address] [place] [phone] Referral ID Status Reason Start Date Expiration Date Visits V isits Requested Authorized [id number] Closed Specialty 05/10/2021 08/08/2021 1 1 Service Requested Reason for Visit Diagnostic Test (Routine) - Closed Specialty Diagnoses / Procedures Referred By Contact Refer red To Contact Radiology Diagnoses Atrial fibrillation, unspecified type Lance Damon MD [facility] Rad Ct Scan Procedures CT Cardiac for Morphology & [place] [address] [place] [address] Referral ID Status Reason Start Date Expiration Date Visits V isits Requested Authorized [id number] Closed Specialty 05/10/2021 08/08/2021 1 1 Service Requested Encounter Details Date Type Department Care Team Description 05/24/[address] Scan at [facility] Lance Damon Atrial fibrillation, [facility] MD Harshal unspecified type [place] [address] [place], [place] [phone] Social History Tobacco Use Types Packs/Day Years [...] Take 1 tablet by 60 tablet 4 202105/26/2021 Tablet mouth 2 times daily. apixaban (Eliquis) 5 mg Take 1 tablet by 60 tablet 4 202110/13/2021 Tablet mouth 2 times daily. aspirin EC 81 mg Tablet, Take 81 mg by mouth 0 05/27/2021 Delayed Release (E.C.) Daily. apixaban (Eliquis) 5 mg Take 1 tablet by 60 tablet 4 202105/26/2021 Tablet mouth 2 times daily. documented as of this encounter Plan of Treatment Upcoming Encounters Date Type Specialty Care Team Description 11/11/2021 Anti-Coag Telephone Primary Care Visit 12/20/2021 Hospital Encounter Surgery Amna Anthony MD [facility] [place] [address] 12/20/2021 Appointment Cardiology Neha Pat APRN [facility] [place] [address] 12/20/2021 Surgery Surgery Amna Anthony MD ECHOCARDIOGRAM ([facility] 2.) [facility] [place] [address] 12/20/2021 Office Visit Cardiology Lance Damon MD [facility] [place] [address] Scheduled Procedures Name Priority Associated Diagnoses Date/Time TRANSESOPHAGEAL ECHOCARDIOGRAM Thrombus 0 12/20/2021 12:30 PM EDT ([facility] 2.55) documented as of this encounter Procedures Procedure Name Priority Date/Time Associated Diagnosis Comme nts CT HEART FOR Routine 05/24/2021 10:15 AM Atrial fibrillation, Results for this FUNCTION EST unspecified type procedure a re in (NON-CORONARY) W the results CONTRAST section. documented in this encounter Results CT Cardiac for Morphology [...] who have questions please contact the health home care consultant that requested your imaging first. ? Narrative 05/24/2021 1:[address] for morphology and function with contrast CLINICAL HISTORY: Watchman screening, le ft atrial appendage assessment, PAF TECHNIQUE: 3.0 mm thick axial contiguous sections were obtained through the chest via helical acquisition after intr avenous contrast administration. Two imaging phases were obtained. Craniocaud al coverage and [id number] were restricted to the heart. Post-processing was [...] phases were obtained. Craniocaud al coverage and [id number] were restricted to the heart. Post-processing was [...] ho have questions please contact the health home care consultant that requested your imaging first. Lance Damon MD IMG CT ORDERABLES documented in this encounter Visit Diagnoses Diagnosis Atrial fibrillation, unspecified type Thrombus Embolism and thrombosis of unspecified s ite documented in this encounter Administered Medications Inactive Administered Medications - up to 3 most recent administrations Medication Order MAR Action Action Date Dose Rate Site iohexoL (Omnipaque) (350 mg/mL) Given 05/24/2021 10:06 AM EST 11 9 mLs solution 0-200 mL 0-200 mL, Intravenous, ONCE PRN, 1 dose, Starting on Tu05/24/21 at 1006, Until Tu05/24/21 at 1006, Per Protocol, Warning Vesicant/Irritant Medication , Radiology Contrast, Routine documented in this encounter Care Teams Spinning Lathe Operator Relationship Specialty Start Date End Date Jb Mcneill DO PCP - General Family Medicine 05/13/19 10/04/[address] [place] [address] documented as of this encounter
--- OUTSIDE RECORDS SUMMARY | 2021-11-11 01:52 | XMS_ITS | Encounter Summary ---
:1945 Author Organization [facility] [place] [address] Care Team Providers Name Role Phone None Primary Care Provider Unavailable Encounter Details Date Type Department Care Team Description 10/17/2021 Anti-Coag [facility] Centralized Brandon Dalton Permanent atrial fibrillation; Telephone Visit Anticoagulation Jahaira, [facility] [place] [phone] Social History Tobacco Use Types Packs/Day Years [...] encounter Progress Notes Brandon Dalton RPH - 10/17/2021 4:00 AM EDT Images from the original note were not included. 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5 mg 28 29 30 31 Date Details 10/17 This INR check Date of next INR: 10/20/2021 How to take your warfarin dose To take: 7.5 mg Take 1.5 of the 5 mg tablets. To take: 10 mg Take 2 of the 5 mg tablets. Description 10/17 INR 1.2 after 4 days of 5mg. Dosing Norris out until . [facility] and coming back 10/31. [...] he will have labs drawn locally at [facility]. ?? Plan 1. Stop Eliquis, Start coumadin 5 mg daily 2. INR check Tuesday 10/17 locally 3. Referral to [facility] antico[facility] clinic 4. Repeat FREDY in 3 months Counseling: ? Warfarin indication: This medication is an anticoagulant or blood thinner. It can be used to treator prevent blood clots. Warfarin will be used in place of Eliquis for treatment of the blood clot inyour heart and blood clot prevention for history of atrial fibrillation. ? Mechanism of action: Warfarin works by inhibiting some clotting factors in your body which are responsible for forming blood clots. ? Dosing: Warfarin should be taken in the evening without regards to meals. It is important to try to take this medication at the same time every day and to not miss any doses. If you do miss a dose, take it as soon as you remember if it is within a few hours of the missed dose, otherwise wait until the next dose is due and do not double doses ? Tablet strength: You have been prescribed the 5mg tablet which should be peach in color. Please call the clinic if you ever receive a different colored tablet. ? INR: Your INR or (International normalized ratio) is a blood test that tells us how thin your blood is. The higher the INR value, the thinner your blood and vice versa. Your current INR goal is 2.5-3.0. You may need for frequent INR checks when starting warfarin until we can reach your goal INR. ? Storage: Warfarin should be stored safely away from any children or pets and at room temperature. ? Adherence: It is extremely important to take this medication every day. Some ways to help rememberto take your medication include alarms, calendar notes, or pill boxes. ? Drug interactions: Warfarin may interact with certain medications so it is important to notify theclinic of any new medication changes. ? Warfarin interactions (Clinically Relevant): None ? Food interactions: Warfarin may also interact with certain foods high in vitamin K such as kale, spinach, Brussel sprouts or any green leafy vegetables. You do not need to avoid these foods but try to keep a consistent amount in your weekly diet. Alcohol may increase the INR therefore alcoholic beverages should be kept to a minimum and should not exceed 1 drink per day for females and 2 drinks per day for males. ? Procedures/vacations: Please call us if you have any planned procedures or any planned vacation time away so we can ensure you receive your medication and have proper INR testing and follow-up scheduled. ? Adverse reactions: Some of the most common side effects of this medication include bleeding or bruising. ? Please contact your doctor right away if you experience: o Experience an allergic reaction such as skin rash, itching or hives, swelling of the face, lips ortongue o Notice bloody or black, tarry stools; red or dark-brown urine, spitting or coughing up blood or coffee ground like material. o Notice red spots on your skin or any unusual bruising or a bruise without cause o Experience unusual bleeding that will not stop such as nose bleeds, or bleeding from cuts, gums, or eyes. o Experience signs and symptoms of a blood clot such as chest pain, difficulty breathing, pain, swelling or warmth in the legs o Experience signs and symptoms of a stroke such as changes in vision, confusion, difficulty speaking or understanding, severe headaches, difficulty walking or sudden numbness or weakness of the face, arm or leg. documented in this encounter Plan of Treatment Upcoming Encounters Date Type Specialty Care Team Description 11/11/2021 Anti-Coag Telephone Primary Care Visit 12/20/2021 Hospital Encounter Surgery Amna Anthony MD [facility] [place] [address] 12/20/2021 Appointment Cardiology Neha Pat APRN [facility] [place] [address] 12/20/2021 Surgery Surgery Amna Anthony MD ECHOCARDIOGRAM ([facility] 2.55) [facility] [place] [address] 12/20/2021 Office Visit Cardiology Lance Damon MD [facility] [place] [address] Scheduled Procedures Name Priority Associated Diagnoses Date/Time TRANSESOPHAGEAL ECHOCARDIOGRAM Thrombus 0 12/20/2021 12:30 PM EDT [facility] documented as of this encounter Visit Diagnoses Diagnosis Permanent atrial fibrillation Atrial fibrillation LA thrombus Other ill-defined heart disease Thrombus Embolism and thrombosis of unspecified s ite documented in this encounter Care Teams Emergency Response Technician Relationship Specialty Start Date End Date None PCP - General 10/05/21 None documented as of this encounter
--- OUTSIDE RECORDS SUMMARY | 2021-11-11 01:52 | XMS_ITS | Encounter Summary ---
:1945 Author Organization [facility] [place] [address] Care Team Providers Name Role Phone None Primary Care Provider Unavailable Encounter Details Date Type Department Care Team Description 10/24/2021 Anti-Coag [facility] Centralized Brandon Dalton Permanent atrial fibrillation; Telephone Visit Anticoagulation Jahaira, [facility] [place] [phone] Social History Tobacco Use Types Packs/Day Years [...] encounter Progress Notes Brandon Dalton RPH - 10/24/2021 4:00 AM EDT Images from the original note were not included. 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] Anticoagulation Episode Summary INR check location: Outside Lab Preferred lab: EXTERNAL FACILITY Send INR reminders to: [facility] Comments: [facility] Anticoagulation Care Providers Provider Role Specialty Phone number Neha Pat JERICA Welch Responsible Cardiology [phone] Patient Assessment Service Type: INR Test Result [...] October 2021 Details Sun Sun Sat 1 12.5 mg See details 2 10 mg 3 10 mg 4 10 mg 5 6 7 8 9 10 11 12 13 14 15 16 17 18 19 20 21 22 23 24 25 26 27 28 29 30 31 Date Details 10/24 This INR check Date of next INR: 10/28/2021 How to take your warfarin dose To take: 10 mg Take 2 of the 5 mg tablets. To take: 12.5 mg Take 2.5 of the 5 mg tablets. Description 10/24 INR below range. Last 7 day total of 52.5mg. Increase dose 14% to last 7 day total of 60mg with retest Sunday. 10/20 INR below range. Last 7 day total of 47.5mg. Daily average of 6.78mg. Increase dose to an average of 7.5mg, 52.5mg weekly. This is a 10% increase. Retest Sunday. -Norris will be on vacation in [facility] starting 10/21 and returning 10/31. -Will test INR at [facility] [phone] 10/17 INR 1.2 after 4 days of 5mg. Dosing Norris out until . Norris is expecting to vacation [facility], leaving 10/21 and coming back 10/31. [...] he will have labs drawn locally at [facility]. ?? Plan 1. Stop Eliquis, Start coumadin 5 mg daily 2. INR check Tuesday 10/17 locally 3. Referral to [facility] [place] 4. Repeat FREDY in 3 months documented in this encounter Plan of Treatment Upcoming Encounters Date Type Specialty Care Team Description 11/11/2021 Anti-Coag Telephone Primary Care Visit 12/20/2021 Hospital Encounter Surgery Amna Anthony MD [facility] [place] [address] 12/20/2021 Appointment Cardiology Neha Pat APRN [facility] [place] [address] 12/20/2021 Surgery Surgery Amna Anthony MD ECHOCARDIOGRAM ([facility] 2.55) [facility] [place] [address] 12/20/2021 Office Visit Cardiology Lance Damon MD [facility] [place] [address] Scheduled Procedures Name Priority Associated Diagnoses Date/Time TRANSESOPHAGEAL ECHOCARDIOGRAM Thrombus 0 12/20/2021 12:30 PM EDT [facility] documented as of this encounter Visit Diagnoses Diagnosis Permanent atrial fibrillation Atrial fibrillation LA thrombus Other ill-defined heart disease Thrombus Embolism and thrombosis of unspecified s ite documented in this encounter Care Teams Weight Training Instructor Relationship Specialty Start Date End Date None PCP - General 10/05/21 None documented as of this encounter
--- OUTSIDE RECORDS SUMMARY | 2021-11-11 01:52 | XMS_ITS | Encounter Summary ---
:1945 Author Organization [facility] [place] [address] Care Team Providers Name Role Phone None Primary Care Provider Unavailable Encounter Details Date Type Department Care Team Description 11/04/2021 Anti-Coag [facility] Centralized Brandon Dalton Permanent atrial fibrillation; Telephone Visit Anticoagulation C, [facility] [place] [phone] Social History Tobacco Use Types Packs/Day Years [...] encounter Progress Notes Brandon Dalton RPH - 11/04/2021 4:00 AM EDT Images from the original note were not included. 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] Anticoagulation Episode Summary INR check location: Outside Lab Preferred lab: EXTERNAL FACILITY Send INR reminders to: [facility] Comments: [facility] Anticoagulation Care Providers Provider Role Specialty Phone number Neha PatJERICA Responsible Cardiology [phone] Patient Assessment Service Type: INR Test Result [...] 6 7 8 9 10 11 12 Hold See details 13 7.5 mg 14 7.5 mg 15 7.5 mg 16 7.5 mg 17 7.5 mg 18 7.5 mg 19 7.5 mg 20 21 22 23 24 25 26 27 28 29 30 31 Date Details 11/04 This INR check Date of next INR: 11/11/2021 How to take your warfarin dose To take: 7.5 mg Take 1.5 of the 5 mg tablets. Hold Do not take your warfarin dose. See the Details table to the right for additional instructions. Description 11/04 INR high today. Last 7 day total of 55mg. Decrease maintenance dose 5% and also hold dose today. Retest in 1 week. Has sprained ankle but not taking anything for pain. Drinks a beer at lunch, gin and tonic at dinner, and a glass of wine after the gin and tonic. This is consistent. No bleeding or bruising. No other changes. 8/ INR slightly above range. Last 7 day total of 60mg. Decrease dose to last 7 day total of 55mg (8%) and retest next week. 8/1 INR below range. Last 7 day total of 52.5mg. Increase dose 14% to last 7 day total of 60mg with retest Sunday. 10/20 INR below range. Last 7 day total of 47.5mg. Daily average of 6.78mg. Increase dose to an average of 7.5mg, 52.5mg weekly. This is a 10% increase. Retest Sunday. -Norris will be on vacation in [facility] starting 10/21 and returning 10/31. -Will test INR at [facility] [phone] 10/17 INR 1.2 after 4 days of 5mg. Dosing Norris out until . [place] [facility]. [...] he will have labs drawn locally at [facility]. ?? Plan 1. Stop Eliquis, Start coumadin 5 mg daily 2. INR check Tuesday 10/17 locally 3. Referral to [facility] anticoagulation clinic 4. Repeat FREDY in 3 months documented in this encounter Plan of Treatment Upcoming Encounters Date Type Specialty Care Team Description 11/11/2021 Anti-Coag Telephone Primary Care Visit 12/20/2021 Hospital Encounter Surgery Amna Anthony MD [facility] [place] [address] 12/20/2021 Appointment Cardiology Neha Pat APRN [facility] [place] [address] 12/20/2021 Surgery Surgery Amna Anthony MD ECHOCARDIOGRAM ([facility] 2.55) [facility] [place] [address] 12/20/2021 Office Visit Cardiology Lance Damon MD [facility] [place] [address] Scheduled Procedures Name Priority Associated Diagnoses Date/Time TRANSESOPHAGEAL ECHOCARDIOGRAM Thrombus 0 12/20/2021 12:30 PM EDT ([facility] 2.55) documented as of this encounter Visit Diagnoses Diagnosis Permanent atrial fibrillation Atrial fibrillation LA thrombus Other ill-defined heart disease Thrombus Embolism and thrombosis of unspecified s ite documented in this encounter Care Teams Answerer Relationship Specialty Start Date End Date None PCP - General 10/05/21 None documented as of this encounter
[2021-11-11 13:27] LABS: INR 2.4 (0.9-1.1); Prothrombin Time 22.8 sec (9.3-11.0)
== END 2021-11-11 01:51 | disposition home or self-care (01) ==
PROVIDERS: PCP Nurse Practitioner Family; Visit Provider Nurse Practitioner
DX: I48.21 Permanent atrial fibrillation (principal); I51.3 Intracardiac thrombosis, not elsewhere classified
CPT/HCPCS: 36415; 85610

== ENCOUNTER 2021-11-18 01:13 | Outpatient (CLI) | payer MEDICARE, SELFPAY ==
[2021-11-18 08:44] LABS: INR 3.1 (0.9-1.1); Prothrombin Time 29.2 sec (9.3-11.0)
== END 2021-11-18 01:14 | disposition home or self-care (01) ==
PROVIDERS: PCP Nurse Practitioner Family; Visit Provider Nurse Practitioner
DX: I48.21 Permanent atrial fibrillation (principal); I51.3 Intracardiac thrombosis, not elsewhere classified; Z79.01 Long term (current) use of anticoagulants
CPT/HCPCS: 36415; 85610

== ENCOUNTER 2021-12-02 01:49 | Outpatient (CLI) | payer MEDICARE, SELFPAY ==
[2021-12-02 08:38] LABS: INR 3.1 (0.9-1.1); Prothrombin Time 29.1 sec (9.3-11.0)
== END 2021-12-02 01:50 | disposition home or self-care (01) ==
LOC: LBO 01:50
PROVIDERS: PCP Nurse Practitioner Family; Visit Provider Nurse Practitioner Family
DX: I48.21 Permanent atrial fibrillation (principal); I51.3 Intracardiac thrombosis, not elsewhere classified
CPT/HCPCS: 36415; 85610

== ENCOUNTER 2021-12-16 00:57 | Outpatient (CLI) | payer MEDICARE, SELFPAY ==
[2021-12-16 08:42] LABS: INR 3.1 (0.9-1.1); Prothrombin Time 29.3 sec (9.3-11.0)
== END 2021-12-16 00:58 | disposition home or self-care (01) ==
LOC: LBO 00:57
PROVIDERS: PCP Nurse Practitioner Family; Visit Provider Nurse Practitioner
DX: I51.3 Intracardiac thrombosis, not elsewhere classified (principal); I48.21 Permanent atrial fibrillation; Z79.01 Long term (current) use of anticoagulants
CPT/HCPCS: 36415; 85610

== ENCOUNTER → 2021-12-23 13:48 | Outpatient (BNVA) | payer MEDICARE, SELFPAY | PROVIDERS: PCP Nurse Practitioner Family; Referring Provider Nurse Practitioner Family; Visit Provider Internal Medicine Cardiovascular Disease | DX: I48.21 Permanent atrial fibrillation (principal) | CPT/HCPCS: 99212; 99442 ==

== ENCOUNTER 2022-01-02 03:08 | Outpatient (CLI) | payer MEDICARE, SELFPAY ==
[2022-01-02 07:27] LABS: INR 2.3 (0.9-1.1); Prothrombin Time 21.6 sec (9.3-11.0)
== END 2022-01-02 03:09 | disposition home or self-care (01) ==
PROVIDERS: PCP Nurse Practitioner Family; Visit Provider Nurse Practitioner
DX: I48.21 Permanent atrial fibrillation (principal); Z79.01 Long term (current) use of anticoagulants
CPT/HCPCS: 36415; 85610

== ENCOUNTER → 2022-01-05 09:26 | Outpatient (BNVA) | payer MEDICARE, SELFPAY | PROVIDERS: PCP Nurse Practitioner Family; Referring Provider Nurse Practitioner Family; Visit Provider Student in an Organized Health Care Education/Training Program | DX: M25.871 Other specified joint disorders, right ankle and foot (principal); M76.821 Posterior tibial tendinitis, right leg | CPT/HCPCS: 99213 ==

== ENCOUNTER 2022-01-20 01:59 | Outpatient (CLI) | payer MEDICARE, SELFPAY ==
[2022-01-20 08:11] LABS: INR 2.9 (0.9-1.1); Prothrombin Time 26.9 sec (9.3-11.0)
== END 2022-01-20 02:00 | disposition home or self-care (01) ==
PROVIDERS: PCP Nurse Practitioner Family; Visit Provider Nurse Practitioner
DX: I48.21 Permanent atrial fibrillation (principal)
CPT/HCPCS: 36415; 85610

== ENCOUNTER 2022-02-10 01:13 | Outpatient (CLI) | payer MEDICARE, SELFPAY ==
[2022-02-10 08:03] LABS: INR 2.2 (0.9-1.1); Prothrombin Time 21.3 sec (9.3-11.0)
== END 2022-02-10 01:14 | disposition home or self-care (01) ==
LOC: LBO 01:13
PROVIDERS: PCP Nurse Practitioner Family; Visit Provider Nurse Practitioner Family
DX: I48.21 Permanent atrial fibrillation (principal); I51.3 Intracardiac thrombosis, not elsewhere classified
CPT/HCPCS: 36415; 85610

== ENCOUNTER 2022-02-24 02:17 | Outpatient (CLI) | payer MEDICARE, SELFPAY ==
[2022-02-24 10:57] LABS: INR 3.3 (0.9-1.1); Prothrombin Time 30.5 sec (9.3-11.0)
== END 2022-02-24 02:18 | disposition home or self-care (01) ==
PROVIDERS: PCP Nurse Practitioner Family; Visit Provider Nurse Practitioner
DX: I48.21 Permanent atrial fibrillation (principal); I51.3 Intracardiac thrombosis, not elsewhere classified; Z79.01 Long term (current) use of anticoagulants
CPT/HCPCS: 36415; 85610

== ENCOUNTER 2022-03-02 01:34 | Outpatient (CLI) | payer MEDICARE, SELFPAY ==
[2022-03-02 08:57] LABS: INR 2.5 (0.9-1.1); Prothrombin Time 24.1 sec (9.3-11.0)
== END 2022-03-02 01:35 | disposition home or self-care (01) ==
PROVIDERS: PCP Nurse Practitioner Family; Visit Provider Nurse Practitioner
DX: I48.21 Permanent atrial fibrillation (principal); I51.3 Intracardiac thrombosis, not elsewhere classified
CPT/HCPCS: 36415; 85610

== ENCOUNTER 2022-03-31 02:32 | Outpatient (CLI) | payer MEDICARE, SELFPAY ==
[2022-03-31 08:33] LABS: INR 2.6 (0.9-1.1); Prothrombin Time 24.8 sec (9.3-11.0)
== END 2022-03-31 02:33 | disposition home or self-care (01) ==
PROVIDERS: PCP Nurse Practitioner Family; Visit Provider Nurse Practitioner Family
DX: I48.21 Permanent atrial fibrillation (principal); Z79.01 Long term (current) use of anticoagulants
CPT/HCPCS: 36415; 93005; 99214; 85610

== ENCOUNTER 2022-03-31 08:48 | Outpatient (CLI) | payer MEDICARE, SELFPAY ==
--- NOTE | 2022-03-31 08:45 | RT.EKG_ITS ---
APPROVED REPORT Exam: Resting ECG Reason for Exam: cardiac evaluation Patient Location: O HR:76 bpm ECG Measurements Heart Rate 76 AXIS [place] [id number] P [id number] QRSd 161 QRS -59 QT 497 T -13 QTc 560 Conclusion Atrial fibrillation...V-rate 61- 90, irreg A-activity Right bundle branch block...QRSd>120, terminal axis(90,270) Baseline artifact
== END 2022-03-31 08:49 | disposition home or self-care (01) ==
LOC: DI.CARD 08:49
PROVIDERS: PCP Nurse Practitioner Family; Visit Provider Internal Medicine Cardiovascular Disease
DX: I48.91 Unspecified atrial fibrillation (principal); R94.31 Abnormal electrocardiogram [ECG] [EKG]; I45.19 Other right bundle-branch block
CPT/HCPCS: 93010

== ENCOUNTER 2022-04-04 03:41 | Outpatient (CLI) | payer MEDICARE, SELFPAY ==
[2022-04-04 08:01] LABS: INR 2.6 (0.9-1.1); Prothrombin Time 24.4 sec (9.3-11.0)
== END 2022-04-04 03:42 | disposition home or self-care (01) ==
PROVIDERS: PCP Nurse Practitioner Family; Visit Provider Nurse Practitioner
DX: I48.21 Permanent atrial fibrillation (principal); I51.3 Intracardiac thrombosis, not elsewhere classified
CPT/HCPCS: 36415; 85610

== ENCOUNTER 2022-05-05 01:42 | Outpatient (CLI) | payer MEDICARE, SELFPAY ==
[2022-05-05 07:45] LABS: INR 2.7 (0.9-1.1); Prothrombin Time 26.9 sec (9.3-11.0)
== END 2022-05-05 01:43 | disposition home or self-care (01) ==
PROVIDERS: PCP Nurse Practitioner Family; Visit Provider Nurse Practitioner
DX: I48.21 Permanent atrial fibrillation (principal); I51.3 Intracardiac thrombosis, not elsewhere classified
CPT/HCPCS: 36415; 85610

== ENCOUNTER 2022-06-16 02:09 | Outpatient (CLI) | payer MEDICARE, SELFPAY ==
[2022-06-16 07:58] LABS: INR 2.3 (0.9-1.1); Prothrombin Time 23.3 sec (9.3-11.0)
== END 2022-06-16 02:10 | disposition home or self-care (01) ==
PROVIDERS: PCP Nurse Practitioner Family; Visit Provider Nurse Practitioner
DX: I48.21 Permanent atrial fibrillation (principal); I51.3 Intracardiac thrombosis, not elsewhere classified
CPT/HCPCS: 36415; 85610

== ENCOUNTER → 2022-06-26 09:45 | Outpatient (BNVA) | payer MEDICARE, SELFPAY | PROVIDERS: PCP Nurse Practitioner Family; Visit Provider Internal Medicine Cardiovascular Disease | DX: Z79.01 Long term (current) use of anticoagulants (principal); I48.91 Unspecified atrial fibrillation | CPT/HCPCS: 99211; 99442 ==

== ENCOUNTER 2022-06-30 02:21 | Outpatient (CLI) | payer MEDICARE, SELFPAY ==
[2022-06-30 09:34] LABS: INR 2.8 (0.9-1.1); Prothrombin Time 28.2 sec (9.3-11.0)
== END 2022-06-30 02:22 | disposition home or self-care (01) ==
PROVIDERS: PCP Nurse Practitioner Family; Visit Provider Nurse Practitioner
DX: I48.21 Permanent atrial fibrillation (principal); I51.3 Intracardiac thrombosis, not elsewhere classified; Z79.01 Long term (current) use of anticoagulants
CPT/HCPCS: 36415; 85610

== ENCOUNTER 2022-07-28 01:26 | Outpatient (CLI) | payer MEDICARE, SELFPAY ==
[2022-07-28 08:13] LABS: INR 2.6 (0.9-1.1); Prothrombin Time 26.2 sec (9.3-11.0)
== END 2022-07-28 01:27 | disposition home or self-care (01) ==
PROVIDERS: PCP Nurse Practitioner Family; Visit Provider Nurse Practitioner
DX: I48.21 Permanent atrial fibrillation (principal); I51.3 Intracardiac thrombosis, not elsewhere classified; Z79.01 Long term (current) use of anticoagulants
CPT/HCPCS: 36415; 85610

== ENCOUNTER 2022-09-01 01:53 | Outpatient (CLI) | payer MEDICARE, SELFPAY ==
[2022-09-01 08:28] LABS: INR 2.4 (0.9-1.1); Prothrombin Time 24.4 sec (9.3-11.0)
== END 2022-09-01 01:54 | disposition home or self-care (01) ==
PROVIDERS: PCP Nurse Practitioner Family; Visit Provider Nurse Practitioner
DX: I48.21 Permanent atrial fibrillation (principal); I51.3 Intracardiac thrombosis, not elsewhere classified; Z79.01 Long term (current) use of anticoagulants
CPT/HCPCS: 36415; 85610

== ENCOUNTER 2022-09-06 03:15 | Outpatient (CLI) | payer MEDICARE, SELFPAY ==
[2022-09-06 08:04] LABS: Prothrombin Time 20.5 sec (9.3-11.0)
== END 2022-09-06 03:16 | disposition home or self-care (01) ==
PROVIDERS: PCP Nurse Practitioner Family; Visit Provider Nurse Practitioner
DX: I48.21 Permanent atrial fibrillation (principal); I51.3 Intracardiac thrombosis, not elsewhere classified; Z79.01 Long term (current) use of anticoagulants
CPT/HCPCS: 36415; 85610

== ENCOUNTER 2022-10-05 02:54 | Outpatient (CLI) | payer MEDICARE, SELFPAY ==
[2022-10-05 08:00] LABS: INR 2.5 (0.9-1.1); Prothrombin Time 24.9 sec (9.3-11.0)
== END 2022-10-05 02:55 | disposition home or self-care (01) ==
PROVIDERS: PCP Nurse Practitioner Family; Visit Provider Nurse Practitioner
DX: I48.21 Permanent atrial fibrillation (principal); Z79.01 Long term (current) use of anticoagulants
CPT/HCPCS: 36415; 85610

== ENCOUNTER 2022-11-15 04:03 | Outpatient (CLI) | payer MEDICARE, SELFPAY ==
[2022-11-15 08:45] LABS: INR 2.2 (0.9-1.1); Prothrombin Time 22.3 sec (9.3-11.0)
== END 2022-11-15 04:04 | disposition home or self-care (01) ==
PROVIDERS: PCP Nurse Practitioner Family; Visit Provider Nurse Practitioner
DX: I48.21 Permanent atrial fibrillation (principal); Z79.01 Long term (current) use of anticoagulants
CPT/HCPCS: 36415; 85610

== ENCOUNTER → 2022-11-30 12:47 | Outpatient (CLI) | payer MEDICARE, SELFPAY ==
--- NOTE | 2022-11-30 10:45 | DI.RAD_ITS ---
Exam(s) XR KNEE LT 4V AP,LAT,NIRAJ,PAT EXAM: XR KNEE LT 4V AP,LAT,NIRAJ,PAT h CLINICAL HISTORY: PAIN OF LEFT PATELLA--PAIN IN LEFT KNEE-[id number]. TECHNIQUE: 2D digital imaging was performed. COMPARISON: No exams were available for comparison FINDINGS: Four views: There is soft tissue swelling anteriorly. There is no obvious patellar fracture but on the merchant' s view there is a finding anterior lateral aspect of the patella which measures 1.8 cm wide by 0.3 cm AP, this osteophytic density adjacent to and parallel to the anterolateral aspect of the patella. M ay be an avulsion type injury. There is no patellar dislocation. The retropatellar space is normal. Tibial plateau unremarkable as are the femoral condyles. There is no joint space narrowing in the medial and lateral compartments of the knee. Bone density normal. No osseous lesions evident. IMPRESSION: Patellar finding as above. Given the anterior prepatellar soft tissue swelling cannot exclude the po ssibly that this is a form of patellar avulsion injury off the anterior lateral aspect of the patella . Appropriate follow-up recommended. DATA REPOSITORY: RADIATION DOSE DELIVERED:
== END ==
PROVIDERS: PCP Nurse Practitioner Family; Visit Provider Nurse Practitioner Family
DX: M25.562 Pain in left knee (principal)
CPT/HCPCS: 73564

== ENCOUNTER 2022-12-14 03:50 | Outpatient (CLI) | payer MEDICARE, SELFPAY ==
[2022-12-14 08:14] LABS: INR 2.7 (0.9-1.1); Prothrombin Time 27.3 sec (9.3-11.0)
== END 2022-12-14 03:51 | disposition home or self-care (01) ==
PROVIDERS: PCP Nurse Practitioner Family; Visit Provider Nurse Practitioner
DX: I48.21 Permanent atrial fibrillation (principal); Z79.01 Long term (current) use of anticoagulants
CPT/HCPCS: 36415; 85610

== ENCOUNTER → 2022-12-25 08:37 | Outpatient (BNVA) | payer MEDICARE, SELFPAY | PROVIDERS: PCP Nurse Practitioner Family; Referring Provider Nurse Practitioner Family | DX: M70.42 Prepatellar bursitis, left knee (principal) | CPT/HCPCS: 99213 ==

== ENCOUNTER 2023-01-11 04:49 | Outpatient (CLI) | payer MEDICARE, SELFPAY ==
[2023-01-11 07:54] LABS: INR 2.8 (0.9-1.1); Prothrombin Time 25.7 sec (9.1-11.1)
== END 2023-01-11 04:50 | disposition home or self-care (01) ==
PROVIDERS: PCP Nurse Practitioner Family; Visit Provider Nurse Practitioner
DX: Z79.01 Long term (current) use of anticoagulants (principal); I48.21 Permanent atrial fibrillation
CPT/HCPCS: 36415; 85610

== ENCOUNTER 2023-02-08 05:15 | Outpatient (CLI) | payer MEDICARE, SELFPAY ==
[2023-02-08 08:12] LABS: INR 2.3 (0.9-1.1); Prothrombin Time 21.5 sec (9.1-11.1)
== END 2023-02-08 05:16 | disposition home or self-care (01) ==
PROVIDERS: PCP Nurse Practitioner Family; Visit Provider Nurse Practitioner
DX: Z79.01 Long term (current) use of anticoagulants (principal); I48.21 Permanent atrial fibrillation
CPT/HCPCS: 36415; 85610

== ENCOUNTER 2023-03-08 02:06 | Outpatient (CLI) | payer MEDICARE, SELFPAY ==
[2023-03-08 10:42] LABS: Prothrombin Time 31.1 sec (9.1-11.1)
[2023-03-08 10:49] LABS: INR 3.4 (0.9-1.1)
== END 2023-03-08 02:07 | disposition home or self-care (01) ==
PROVIDERS: PCP Nurse Practitioner Family; Visit Provider Nurse Practitioner
DX: I48.21 Permanent atrial fibrillation (principal); Z79.01 Long term (current) use of anticoagulants
CPT/HCPCS: 36415; 85610

== ENCOUNTER → 2023-03-30 09:31 | Outpatient (BNVA) | payer MEDICARE, SELFPAY | PROVIDERS: PCP Nurse Practitioner Family; Visit Provider Internal Medicine Interventional Cardiology | DX: I48.11 Longstanding persistent atrial fibrillation (principal) | CPT/HCPCS: 99213 ==

== ENCOUNTER 2023-04-05 03:27 | Outpatient (CLI) | payer MEDICARE, SELFPAY ==
[2023-04-05 10:47] LABS: INR 2.7 (0.9-1.1); Prothrombin Time 25.2 sec (9.1-11.1)
[2023-04-05 11:30] LABS: Anion Gap 9.5 mmol/L (3-11); BUN 12 mg/dL (7-18); CO2 26.5 mmol/L (21.0-32.0); CREATININE 1.2 mg/dL (0.70-1.30); Calculated LDL 102 mg/dL (<100); Chloride 104 mmol/L (98-107); Cholesterol 202 mg/dL (<200); Estimated GFR 62.67 (mL/min/1.73m2); Glucose 111 mg/dL (74-106); HDL Cholesterol 48 mg/dL (40-60); Potassium 4.2 mmol/L (3.5-5.1); Sodium 140 mmol/L (136-145); Triglyceride 260 mg/dL (<150)
[2023-04-05 21:31] LABS: PSA, Screening 0.5 ng/mL (<=6.5)
== END 2023-04-05 03:28 | disposition home or self-care (01) ==
LOC: LBO 03:27
PROVIDERS: Nurse Practitioner; PCP Nurse Practitioner Family; Visit Provider Nurse Practitioner Family
DX: Z13.1 Encounter for screening for diabetes mellitus (principal); Z13.6 Encounter for screening for cardiovascular disorders; Z12.5 Encounter for screening for malignant neoplasm of prostate; I48.21 Permanent atrial fibrillation
CPT/HCPCS: 36415; 80048; 80061; 84153; 85610

== ENCOUNTER 2023-05-03 02:08 | Outpatient (CLI) | payer MEDICARE, SELFPAY ==
[2023-05-03 07:57] LABS: INR 2.2 (0.9-1.1); Prothrombin Time 20.4 sec (9.1-11.1)
== END 2023-05-03 02:09 | disposition home or self-care (01) ==
PROVIDERS: PCP Nurse Practitioner Family; Visit Provider Nurse Practitioner
DX: Z79.01 Long term (current) use of anticoagulants (principal)
CPT/HCPCS: 36415; 85610

== ENCOUNTER 2023-05-17 01:27 | Outpatient (CLI) | payer MEDICARE, SELFPAY ==
[2023-05-17 08:10] LABS: Prothrombin Time 27.2 sec (9.1-11.1)
== END 2023-05-17 01:28 | disposition home or self-care (01) ==
PROVIDERS: PCP Nurse Practitioner Family; Visit Provider Nurse Practitioner
DX: Z79.01 Long term (current) use of anticoagulants (principal); I48.21 Permanent atrial fibrillation
CPT/HCPCS: 36415; 85610

== ENCOUNTER 2023-06-14 05:34 | Outpatient (CLI) | payer MEDICARE, SELFPAY ==
[2023-06-14 08:09] LABS: Prothrombin Time 31.9 sec (9.1-11.1)
[2023-06-14 08:19] LABS: INR 3.5 (0.9-1.1)
== END 2023-06-14 05:35 | disposition home or self-care (01) ==
PROVIDERS: PCP Nurse Practitioner Family; Visit Provider Nurse Practitioner
DX: Z79.01 Long term (current) use of anticoagulants (principal)
CPT/HCPCS: 36415; 85610

== ENCOUNTER 2023-06-28 04:52 | Outpatient (CLI) | payer MEDICARE, SELFPAY ==
[2023-06-28 10:02] LABS: INR 3.1 (0.9-1.1); Prothrombin Time 28.5 sec (9.1-11.1)
== END 2023-06-28 04:53 | disposition home or self-care (01) ==
PROVIDERS: PCP Nurse Practitioner Family; Visit Provider Nurse Practitioner
DX: Z79.01 Long term (current) use of anticoagulants (principal); I48.21 Permanent atrial fibrillation
CPT/HCPCS: 36415; 85610

== ENCOUNTER 2023-07-11 04:22 | Outpatient (CLI) | payer MEDICARE, SELFPAY ==
[2023-07-11 16:28] LABS: INR 2.3 (0.9-1.1); Prothrombin Time 21.7 sec (9.1-11.1)
== END 2023-07-11 04:23 | disposition home or self-care (01) ==
PROVIDERS: PCP Nurse Practitioner Family; Visit Provider Nurse Practitioner
DX: I48.21 Permanent atrial fibrillation (principal); Z79.01 Long term (current) use of anticoagulants
CPT/HCPCS: 36415; 85610

== ENCOUNTER 2023-08-08 05:05 | Outpatient (CLI) | payer MEDICARE, SELFPAY ==
[2023-08-08 08:37] LABS: Prothrombin Time 27.7 sec (9.1-11.1)
== END 2023-08-08 05:06 | disposition home or self-care (01) ==
PROVIDERS: PCP Nurse Practitioner Family; Visit Provider Nurse Practitioner
DX: I48.21 Permanent atrial fibrillation (principal)
CPT/HCPCS: 36415; 85610

== ENCOUNTER 2023-08-29 05:22 | Outpatient (CLI) | payer MEDICARE, SELFPAY ==
[2023-08-29 08:01] LABS: INR 2.4 (0.9-1.1); Prothrombin Time 22.6 sec (9.1-11.1)
== END 2023-08-29 05:23 | disposition home or self-care (01) ==
PROVIDERS: PCP Nurse Practitioner Family; Visit Provider Nurse Practitioner
DX: I48.21 Permanent atrial fibrillation (principal); Z79.01 Long term (current) use of anticoagulants
CPT/HCPCS: 36415; 85610

== ENCOUNTER 2023-09-19 01:53 | Outpatient (CLI) | payer MEDICARE, SELFPAY ==
[2023-09-19 08:08] LABS: INR 2.8 (0.9-1.1); Prothrombin Time 25.8 sec (9.1-11.1)
== END 2023-09-19 01:54 | disposition home or self-care (01) ==
LOC: LBO 01:53
PROVIDERS: PCP Nurse Practitioner Family; Visit Provider Nurse Practitioner
DX: I48.21 Permanent atrial fibrillation (principal); Z79.01 Long term (current) use of anticoagulants
CPT/HCPCS: 36415; 85610

== ENCOUNTER 2023-10-17 01:30 | Outpatient (CLI) | payer MEDICARE, SELFPAY ==
[2023-10-17 08:42] LABS: INR 2.5 (0.9-1.1); Prothrombin Time 22.9 sec (9.1-11.1)
[2023-10-17 09:08] LABS: Calculated LDL 115 mg/dL (<100); Cholesterol 184 mg/dL (<200); HDL Cholesterol 54 mg/dL (40-60); Triglyceride 78 mg/dL (<150)
== END 2023-10-17 01:31 | disposition home or self-care (01) ==
PROVIDERS: PCP Nurse Practitioner Family; Visit Provider Nurse Practitioner Family
DX: Z13.6 Encounter for screening for cardiovascular disorders (principal); I48.21 Permanent atrial fibrillation; Z79.01 Long term (current) use of anticoagulants
CPT/HCPCS: 36415; 80061; 85610

== ENCOUNTER 2023-11-14 02:55 | Outpatient (CLI) | payer MEDICARE, SELFPAY ==
[2023-11-14 09:01] LABS: INR 2.7 (0.9-1.1); Prothrombin Time 25.2 sec (9.1-11.1)
== END 2023-11-14 02:56 | disposition home or self-care (01) ==
PROVIDERS: PCP Nurse Practitioner Family; Visit Provider Nurse Practitioner
DX: I48.21 Permanent atrial fibrillation (principal)
CPT/HCPCS: 36415; 85610

== ENCOUNTER 2023-12-12 02:51 | Outpatient (CLI) | payer MEDICARE, SELFPAY ==
[2023-12-12 07:59] LABS: INR 2.8 (0.9-1.1); Prothrombin Time 25.4 sec (9.1-11.1)
== END 2023-12-12 02:52 | disposition home or self-care (01) ==
PROVIDERS: PCP Nurse Practitioner Family; Visit Provider Nurse Practitioner
DX: I48.21 Permanent atrial fibrillation (principal); Z79.01 Long term (current) use of anticoagulants
CPT/HCPCS: 36415; 85610

== ENCOUNTER 2024-01-09 03:21 | Outpatient (CLI) | payer MEDICARE, SELFPAY ==
[2024-01-09 07:59] LABS: INR 3.1 (0.9-1.1); Prothrombin Time 27.9 sec (9.1-11.1)
== END 2024-01-09 03:22 | disposition home or self-care (01) ==
LOC: LBO 03:21
PROVIDERS: Nurse Practitioner; PCP Nurse Practitioner Family; Visit Provider Nurse Practitioner Family
DX: I48.21 Permanent atrial fibrillation (principal)
CPT/HCPCS: 36415; 85610

== ENCOUNTER 2024-02-06 02:03 | Outpatient (CLI) | payer MEDICARE, SELFPAY ==
[2024-02-06 07:50] LABS: INR 2.5 (0.9-1.1); Prothrombin Time 23.4 sec (9.1-11.1)
== END 2024-02-06 02:04 | disposition home or self-care (01) ==
PROVIDERS: PCP Nurse Practitioner Family; Referring Provider Nurse Practitioner; Visit Provider Nurse Practitioner
DX: I48.21 Permanent atrial fibrillation (principal); Z79.01 Long term (current) use of anticoagulants
CPT/HCPCS: 36415; 85610

== ENCOUNTER 2024-03-12 04:17 | Outpatient (CLI) | payer MEDICARE, SELFPAY ==
[2024-03-12 07:46] LABS: INR 2.7 (0.9-1.1); Prothrombin Time 24.7 sec (9.1-11.1)
== END 2024-03-12 04:18 | disposition home or self-care (01) ==
PROVIDERS: PCP Nurse Practitioner Family; Visit Provider Nurse Practitioner
DX: I48.21 Permanent atrial fibrillation (principal)
CPT/HCPCS: 36415; 85610

== ENCOUNTER → 2024-04-04 09:22 | Outpatient (BNVA) | payer MEDICARE, SELFPAY | PROVIDERS: PCP Nurse Practitioner Family; Visit Provider Internal Medicine Cardiovascular Disease | DX: I48.11 Longstanding persistent atrial fibrillation (principal) | CPT/HCPCS: 99213 ==

== ENCOUNTER 2024-04-23 04:07 | Outpatient (CLI) | payer MEDICARE, SELFPAY ==
[2024-04-23 08:15] LABS: Prothrombin Time 27.7 sec (9.1-11.1)
== END 2024-04-23 04:08 | disposition home or self-care (01) ==
LOC: LBO 04:07
PROVIDERS: PCP Nurse Practitioner Family; Visit Provider Nurse Practitioner Family
DX: I48.92 Unspecified atrial flutter (principal)
CPT/HCPCS: 36415; 85610

== ENCOUNTER 2024-04-30 01:13 | Outpatient (CLI) | payer MEDICARE, SELFPAY ==
[2024-04-30 11:05] LABS: INR 1.9 (0.9-1.1); Prothrombin Time 18.5 sec (9.1-11.1)
== END 2024-04-30 01:14 | disposition home or self-care (01) ==
PROVIDERS: PCP Nurse Practitioner Family; Visit Provider Nurse Practitioner Family
DX: I48.91 Unspecified atrial fibrillation (principal); I82.90 Acute embolism and thrombosis of unspecified vein
CPT/HCPCS: 36415; 85610

== ENCOUNTER 2024-05-14 02:25 | Outpatient (CLI) | payer MEDICARE, SELFPAY ==
[2024-05-14 10:03] LABS: INR 1.8 (0.9-1.1); Prothrombin Time 17.3 sec (9.1-11.1)
== END 2024-05-14 02:26 | disposition home or self-care (01) ==
PROVIDERS: PCP Nurse Practitioner Family; Visit Provider Nurse Practitioner Family
DX: I48.91 Unspecified atrial fibrillation (principal)
CPT/HCPCS: 36415; 85610

== ENCOUNTER 2024-05-21 03:26 | Outpatient (CLI) | payer MEDICARE, SELFPAY ==
[2024-05-21 08:20] LABS: INR 2.2 (0.9-1.1); Prothrombin Time 21.2 sec (9.1-11.1)
== END 2024-05-21 03:27 | disposition home or self-care (01) ==
PROVIDERS: PCP Nurse Practitioner Family; Visit Provider Nurse Practitioner Family
DX: I48.91 Unspecified atrial fibrillation (principal)
CPT/HCPCS: 36415; 85610

== ENCOUNTER 2024-05-28 03:41 | Outpatient (CLI) | payer MEDICARE, SELFPAY ==
[2024-05-28 08:08] LABS: INR 3.4 (0.9-1.1); Prothrombin Time 31.3 sec (9.1-11.1)
== END 2024-05-28 03:42 | disposition home or self-care (01) ==
PROVIDERS: PCP Nurse Practitioner Family; Visit Provider Nurse Practitioner Family
DX: I48.91 Unspecified atrial fibrillation (principal)
CPT/HCPCS: 36415; 85610

== ENCOUNTER 2024-06-04 04:29 | Outpatient (CLI) | payer MEDICARE, SELFPAY ==
[2024-06-04 10:14] LABS: INR 2.4 (0.9-1.1); Prothrombin Time 22.5 sec (9.1-11.1)
== END 2024-06-04 04:30 | disposition home or self-care (01) ==
PROVIDERS: PCP Nurse Practitioner Family; Visit Provider Nurse Practitioner Family
DX: I48.91 Unspecified atrial fibrillation (principal)
CPT/HCPCS: 36415; 85610

== ENCOUNTER 2024-07-02 02:02 | Outpatient (CLI) | payer MEDICARE, SELFPAY ==
[2024-07-02 08:23] LABS: Prothrombin Time 28.3 sec (9.1-11.1)
== END 2024-07-02 02:03 | disposition home or self-care (01) ==
PROVIDERS: PCP Nurse Practitioner Family; Visit Provider Nurse Practitioner Family
DX: I48.91 Unspecified atrial fibrillation (principal)
CPT/HCPCS: 36415; 85610

== ENCOUNTER 2024-07-18 00:58 | Outpatient (CLI) | payer MEDICARE, SELFPAY ==
[2024-07-18 08:35] LABS: INR 2.5 (0.9-1.1); Prothrombin Time 23.2 sec (9.1-11.1)
== END 2024-07-18 00:59 | disposition home or self-care (01) ==
PROVIDERS: PCP Nurse Practitioner Family; Visit Provider Nurse Practitioner Family
DX: I48.91 Unspecified atrial fibrillation (principal)
CPT/HCPCS: 36415; 85610

== ENCOUNTER 2024-07-30 02:03 | Outpatient (CLI) | payer MEDICARE, SELFPAY ==
[2024-07-30 09:49] LABS: Prothrombin Time 27.9 sec (9.1-11.1)
== END 2024-07-30 02:04 | disposition home or self-care (01) ==
PROVIDERS: PCP Nurse Practitioner Family; Visit Provider Nurse Practitioner Family
DX: I48.91 Unspecified atrial fibrillation (principal)
CPT/HCPCS: 36415; 85610

== ENCOUNTER 2024-08-13 02:52 | Outpatient (CLI) | payer MEDICARE, SELFPAY ==
[2024-08-13 08:04] LABS: INR 3.5 (0.9-1.1)
== END 2024-08-13 02:53 | disposition home or self-care (01) ==
PROVIDERS: PCP Nurse Practitioner Family; Visit Provider Nurse Practitioner Family
DX: I48.91 Unspecified atrial fibrillation (principal)
CPT/HCPCS: 36415; 85610

== ENCOUNTER 2024-08-22 00:49 | Outpatient (CLI) | payer MEDICARE, SELFPAY ==
[2024-08-22 09:31] LABS: Prothrombin Time 28.2 sec (9.1-11.1)
== END 2024-08-22 00:50 | disposition home or self-care (01) ==
PROVIDERS: PCP Nurse Practitioner Family; Visit Provider Nurse Practitioner Family
DX: I48.91 Unspecified atrial fibrillation (principal)
CPT/HCPCS: 36415; 85610

== ENCOUNTER 2024-09-04 01:50 | Outpatient (CLI) | payer MEDICARE, SELFPAY ==
[2024-09-04 07:43] LABS: INR 2.6 (0.9-1.1); Prothrombin Time 24.2 sec (9.1-11.1)
== END 2024-09-04 01:51 | disposition home or self-care (01) ==
PROVIDERS: PCP Nurse Practitioner Family; Visit Provider Nurse Practitioner Family
DX: I48.91 Unspecified atrial fibrillation (principal)
CPT/HCPCS: 36415; 85610

== ENCOUNTER 2024-09-17 01:25 | Outpatient (CLI) | payer MEDICARE, SELFPAY ==
[2024-09-17 07:48] LABS: INR 2.3 (0.9-1.1); Prothrombin Time 21.6 sec (9.1-11.1)
== END 2024-09-17 01:26 | disposition home or self-care (01) ==
PROVIDERS: PCP Nurse Practitioner Family; Visit Provider Nurse Practitioner Family
DX: I48.91 Unspecified atrial fibrillation (principal)
CPT/HCPCS: 36415; 85610

== ENCOUNTER 2024-10-01 03:40 | Outpatient (CLI) | payer MEDICARE, SELFPAY ==
[2024-10-01 08:24] LABS: INR 2.3 (0.9-1.1); Prothrombin Time 21.8 sec (9.1-11.1)
== END 2024-10-01 03:41 | disposition home or self-care (01) ==
LOC: LBO 03:40
PROVIDERS: PCP Nurse Practitioner Family; Visit Provider Nurse Practitioner Family
DX: I48.91 Unspecified atrial fibrillation (principal)
CPT/HCPCS: 36415; 85610

== ENCOUNTER 2024-10-15 07:23 | Outpatient (CLI) | payer MEDICARE, SELFPAY ==
[2024-10-15 07:40] LABS: INR 2.3 (0.9-1.1); Prothrombin Time 21.6 sec (9.1-11.1)
== END 2024-10-15 07:24 | disposition home or self-care (01) ==
LOC: LBO 07:23
PROVIDERS: PCP Nurse Practitioner Family; Visit Provider Nurse Practitioner Family
DX: I48.91 Unspecified atrial fibrillation (principal)
CPT/HCPCS: 36415; 85610

== ENCOUNTER 2024-10-22 04:04 | Outpatient (CLI) | payer MEDICARE, SELFPAY ==
[2024-10-22 11:06] LABS: INR 3.1 (0.9-1.1); Prothrombin Time 28.5 sec (9.1-11.1)
== END 2024-10-22 04:05 | disposition home or self-care (01) ==
PROVIDERS: PCP Nurse Practitioner Family; Visit Provider Nurse Practitioner Family
DX: I48.91 Unspecified atrial fibrillation (principal)
CPT/HCPCS: 36415; 85610

== ENCOUNTER 2024-11-05 04:09 | Outpatient (CLI) | payer MEDICARE, SELFPAY ==
[2024-11-05 10:31] LABS: INR 3.0 (0.9-1.1); Prothrombin Time 27.7 sec (9.1-11.1)
== END 2024-11-05 04:10 | disposition home or self-care (01) ==
LOC: LBO 04:10
PROVIDERS: PCP Nurse Practitioner Family; Visit Provider Nurse Practitioner Family
DX: I48.91 Unspecified atrial fibrillation (principal)
CPT/HCPCS: 36415; 85610

== ENCOUNTER 2024-11-12 03:17 | Outpatient (CLI) | payer MEDICARE, SELFPAY ==
[2024-11-12 11:28] LABS: INR 3.7 (0.9-1.1); Prothrombin Time 34.2 sec (9.1-11.1)
== END 2024-11-12 03:18 | disposition home or self-care (01) ==
PROVIDERS: PCP Nurse Practitioner Family; Visit Provider Nurse Practitioner Family
DX: I48.91 Unspecified atrial fibrillation (principal)
CPT/HCPCS: 36415; 85610

== ENCOUNTER 2024-11-19 02:20 | Outpatient (CLI) | payer MEDICARE, SELFPAY ==
[2024-11-19 08:14] LABS: INR 3.1 (0.9-1.1); Prothrombin Time 29.0 sec (9.1-11.1)
== END 2024-11-19 02:21 | disposition home or self-care (01) ==
PROVIDERS: PCP Nurse Practitioner Family; Visit Provider Nurse Practitioner Family
DX: I48.91 Unspecified atrial fibrillation (principal)
CPT/HCPCS: 36415; 85610

== ENCOUNTER 2024-11-26 14:59 | Outpatient (CLI) | payer MEDICARE, SELFPAY ==
[2024-11-26 08:10] LABS: INR 3.6 (0.9-1.1); Prothrombin Time 32.8 sec (9.1-11.1)
== END 2024-11-26 15:00 | disposition home or self-care (01) ==
LOC: LBO 14:59
PROVIDERS: PCP Nurse Practitioner Family; Visit Provider Nurse Practitioner Family
DX: I48.91 Unspecified atrial fibrillation (principal)
CPT/HCPCS: 36415; 85610

== ENCOUNTER 2024-11-27 09:03 | Outpatient (CLI) | payer MEDICARE, SELFPAY ==
[2024-11-27 08:02] LABS: INR 3.1 (0.9-1.1); Prothrombin Time 29.1 sec (9.1-11.1)
== END 2024-11-27 09:04 | disposition home or self-care (01) ==
LOC: LBO 09:04
PROVIDERS: PCP Nurse Practitioner Family; Visit Provider Nurse Practitioner Family
DX: I48.91 Unspecified atrial fibrillation (principal)
CPT/HCPCS: 36415; 85610